=== PATIENT | female | born 1950 | race Caucasian/White ===

== ENCOUNTER 2019-04-21 13:37 | Emergency (ER) | payer MEDICARE, MEDICAID, SELFPAY ==
[2019-04-21] VITALS (15 sets, daily range): BP systolic 112–191; BP diastolic 51–95; PULSE 61–74; RESP 14–20; TEMP 36.3; O2SAT 81–95; BMI 36.6
--- NOTE | 2019-04-21 12:00 | ED_ITS ---
Entered by Karsten Treviño, acting as scribe for Constantino Soares DO HPI - Fall General: Chief Complaint: Fall Stated Complaint: FALL - HIP AND BACK PAIN History of Present Illness: HPI Narrative: 69 yo female presents with fall. Pt states that she fell trying to get out of her van. Pt states that she landed on her right hip. Pt denies neck pain. Pt states that she is on o2 at night. MD complaint: fall Fall from: standing Fall witnessed: yes, by family Place fall occurred: home Loss of consciousness: None Location of injury: other (right hip) Severity: moderate Quality: sharp Associated symptoms-after fall: Reports difficulty walking; Denies abdominal pain, chest pain, hematuria, neck pain or short of breath Review of Systems Const: Denies: fever, chills, body aches, fatigue, malaise or night sweats Eyes: Denies: change in vision or blurry vision ENMT: Denies: throat pain, oral sores/lesions, dental pain, nasal discharge or nasal congestion Card: Denies: chest pain, palpitations, irregular heart rhythm, edema, syncope, shortness of breath on exertion, shortness of breath when lying down or leg pain with exertion Resp: Denies: shortness of breath, productive cough, non-productive cough or wheezing GI: Denies: abdominal pain, nausea, vomiting, vomiting blood, coffee grounds in vomit, difficulty swallowing, heartburn/indigestion, diarrhea, constipation, cramping, blood in stool or black tarry stool : Denies: flank pain, painful urination, urinary frequency, urinary urgency, urinary incontinence or blood in urine Musc: Denies: neck pain Skin/Breast: Denies: rash, itching or redness Neuro: Reports: difficulty walking Endo: Denies: excessive urination, excessive thirst, tired all the time or cold intolerance Jeremiah/Lymph: Denies: easy bruising, easy bleeding, petechiae, enlarged lymph nodes or tender lymph nodes PFSH ED PFSH: Statuses (acute, chronic, etc) shown below reflect problem list status as previously entered and may not be historically accurate Social History Smoking and tobacco status: former smoker Physical Exam Const: COMMON NORMALS: average body habitus, oriented x3 and alert GENERAL APPEARANCE: cooperative, comfortable, well kempt and well developed NUTRITIONAL APPEARANCE: obese ORIENTATION/CONSCIOUSNESS: Yes awake, Yes oriented to person and Yes oriented to place HENMT: COMMON NORMALS: normocephalic, head/scalp atraumatic, EAC's normal, TM's normal bilaterally, external nose normal, moist oral mucous membranes and oropharynx normal HEAD & SCALP: normocephalic and atraumatic NOSE: external nose normal EXTERNAL AUDITORY CANAL: EAC's normal TYMPANIC MEMBRANE: TM's normal bilaterally MOUTH: oral and palatal mucosa normal, lip normal and tongue normal THROAT: posterior oropharynx normal and tonsils normal Eye: COMMON NORMALS: PERRL, EOMs intact bilaterally, conjunctivae normal and no scleral icterus CONJUNCTIVA: Yes conjunctivae normal PUPIL: Yes PERRL Neck/C-Spine: COMMON NORMALS: full ROM, no lymphadenopathy, supple, no meningeal signs and thyroid normal THYROID: thyroid normal and asymmetrical Lymph: LYMPHATIC: no lymphadenopathy noted Resp: COMMON NORMALS: normal respiratory effort, no retractions, no use of accessory muscles and clear to auscultation bilaterally AUSCULTATION: clear to auscultation bilaterally Cardio: COMMON NORMALS: regular rate and regular rhythm RATE: regular rate RHYTHM: regular rhythm HEART SOUNDS: no murmurs GI: COMMON NORMALS: normal to inspection, nondistended, normoactive bowel sounds, soft to palpation and no hepatosplenomegaly PALPATION: Yes soft and Yes no hepatosplenomegaly : COMMON NORMALS: Yes no CVA tenderness BLADDER/KIDNEY EXAM: Yes no CVA tenderness Back/Pelvis: COMMON NORMALS: no CVA tenderness LUMBAR SPINE/LOWER BACK: Yes normal to inspection Extremity: RIGHT LOWER EXTREMITY: Yes hip joint (tenderness with movement) Neuro: COMMON NORMALS: oriented x3 SENSORIUM/ORIENTATION: Yes alert, Yes oriented to person and Yes oriented to place MENINGEAL SIGNS: Yes no meningeal signs Psych: APPEARANCE: Yes well kempt Skin: COMMON NORMALS: no rashes or lesions noted and skin turgor normal GENERAL SKIN EXAM: no rashes or lesions noted and turgor normal Course Vital Signs: Vital signs: Vital Signs Temperature 97.4 F L 04/21/19 12:02 Pulse Rate 66 04/21/19 15:59 Respiratory Rate 17 04/21/19 15:59 Blood Pressure 138/75 04/21/19 16:01 Pulse Oximetry 95 04/21/19 15:59 MDM - Fall Lab Data: Labs: Lab Results 04/21/19 04/21/19 04/21/19 Range/Units 13:25 13:25 14:06 WBC 4.8 (4.0-10.0) 10^3/ uL RBC 5.15 (4.1-5.3) 10^6/u L Hgb 14.6 (11.5-15.3) g/dL Hct 45.5 (37.0-47.0) % MCV 88.3 (81-99) fL MCH 28.3 (28.0-34.0) pg MCHC 32.1 (30.0-36.0) g/dL RDW 12.7 (12.1-15.1) % Plt Count 152 (130-400) 10^3/c mm MPV 9.0 (7.4-10.4) fL Neut % (Auto) 84.3 % Lymph % (Auto) 10.1 % [place] % (Auto) 4.8 % Eos % (Auto) 0.0 % Baso % (Auto) 0.2 % Neut # (Auto) 4.0 (1.8-7.7) 10^3/u L Lymph # (Auto) 0.5 L (0.8-4.8) 10^3/u L [place] # (Auto) 0.2 (0.2-0.9) 10^3/u L Eos # (Auto) 0.0 (0.0-0.8) 10^3/u L Baso # (Auto) 0.0 (0.0-0.1) 10^3/u L Nucleated RBC % (a uto) 0 % Nucleated RBCs # 0.0 /100WBC Sodium 139 (136-145) mmol/L Potassium 4.3 (3.5-5.1) mmol/L Chloride 101 (98-107) mmol/L Carbon Dioxide 26 (22-29) mmol/L Anion Gap 16.3 (5-19) BUN 12 (8-23) mg/dL Creatinine 0.7 (0.5-0.9) mg/dL Glucose 137 H (74-106) mg/dL Calcium 9.6 (8.8-10.2) mg/Dl Total Bilirubin 0.4 (0.15-1.2) mg/dL AST 15 (0-32) U/L ALT 12 (0-33) U/L Alkaline Phosphata se 95 (35-105) IU/L Total Protein 6.8 (6.6-8.7) g/dL Albumin 4.9 (3.5-5.2) g/dL Globulin 1.9 (1.3-4.6) g/dL Urine Color Yellow (Yellow) Urine Appearance Cloudy (CLEAR) Urine pH 5.0 (5-7) Ur Specific Gravit y 1.025 (1.005-1.030) Urine Protein Neg (Negative) Urine Glucose (UA) Norm (Normal) Urine Ketones Negative (Negative) Urine Occult Blood 2+ H (Negative) Urine Nitrate Negative (Negative) Urine Bilirubin 1+ H (NEGATIVE) Urine Urobilinogen 1 H (Negative) mg/dL Ur Leukocyte Inge ase Negative (Negative) Urine RBC None (0-2) /hpf Urine WBC None (0-5) /hpf Ur Squamous Epith Cells 55-80 H (0-5) Urine Bacteria 2+ H (NONE) Urine Mucus 1+ Imaging Data^: Other Imaging: Radiologist's impression: Patient: Brenden Nichole MR#: [id number] : 07/17/1936 Acct:[id number] Age/Sex: 82 / F ADM Date: 04/21/19 Loc: ER Attending Dr: Ordering Physician: Adrianna Tsang DO Date of Service: 04/21/19 Procedure(s): XR acute abdomen series 12474 Accession Number(s): [id number] cc: Adrianna Tsang DO PROCEDURE INFORMATION: Exam: XR Abdomen, 2 Views Exam date and time: 04/21/2019 11:29 AM Age: 82 years old Clinical indication: Bloating and constipation; Prior surgery; Surgery date: 6+ months; Surgery type: Colon, date not given; Patient HX: HX of cervical and colon cancer; Additional info: Bloating/constipation, no bm for 7 days TECHNIQUE: Imaging protocol: XR of the abdomen. Frontal supine and upright views of the abdomen. Views: 2 Views. COMPARISON: CR XR KUB [id number] 02/18/2019 2:45 PM FINDINGS: Lower thorax: Minimal scarring left retrocardiac region. Lungs are otherwise well aerated. Gastrointestinal tract: bowel gas pattern is nonspecific. Air filled large bowel including distal rectal gas. Large amount of stool throughout the large bowel. Intraperitoneal space: See Bones/joints Finding. Bones/joints: Severe degenerative changes right hip. Prior trauma right hemipelvis. XR/XR acute abdomen series [id number] IMPRESSION: 1. Large amount of stool throughout the large bowel. 2. Minimal scarring left retrocardiac region. Lungs are otherwise well aerated. Dictated By: Sami Edmonds MD 04/21/19 1304 Signed By: Sami Edmonds MD 04/21/[address] Abd/Pel: Radiologist's impression: Patient: Brenden Nichole MR#: [id number] : 07/17/1936 Acct:[id number] Age/Sex: 82 / F ADM Date: 04/21/19 Loc: ER Attending Dr: Ordering Physician: Adrianna Tsang DO Date of Service: 04/21/19 Procedure(s): CT abdomen pelvis w con* [id number] Accession Number(s): [id number] Report Number: [id number] WS: [id number] CT scan of the abdomen and pelvis without Oral and with IV contrast. Additional two-dimensional coronal and sagittal reconstruction was performed. 04/21/2019 Clinical Data: Abdominal Pain Comparison: CT abdomen and pelvis, 03/24/2019 DLP: 464.[address] scans at [facility] use at least one of these dose optimization techniques: automated exposure control; mA and/or kV adjustment per patient size (includes targeted exams where dose is matched to clinical indication); or iterative reconstruction. Findings: The lower lungs show no nodules, masses or effusions. There is a right augmentation mammoplasty implant in position. The liver, spleen, adrenal glands and pancreas are normal. The gallbladder is distended and the common bile duct is prominent but no intraductal abnormalities are seen. No gallstones are evident. The kidneys show equal bilateral contrast excretion with with right renal pelvic dilatation. No renal masses or obstructing calculi are seen. The right kidney shows small cortical cysts. There is minimal bilateral hydroureter with no intraureteral calculi. The abdominal aorta is normal in size with calcification in the wall. No abscess, adenopathy, ascites, mass, obstruction or free air is seen.. No appendicitis or diverticulitis is seen. There is a huge amount of fecal material throughout the colon. The uterus is absent. The bladder is unremarkable. No inguinal hernia is seen. The fracture of the right sacrum and fracture of the right ischiopubic ramus again are seen. These probably represent pathologic fractures but they are unchanged. CT/CT abdomen pelvis w con* [id number] Impression: 1. Negative for new intra-abdominal or pelvic abnormalities. 2. Distended gallbladder but no calculi or obstructing common duct stones are seen. 3. Dilatation of the right renal pelvis and both ureters unchanged. 4. Large amount of fecal material throughout the colon. 5. Mixed lytic and blastic changes throughout the sacrum and pelvis with probable pathologic fractures of the right sacrum and the right ischio pubic ramus unchanged. Dictated By: Nikki Henry MD Signed By: Nikki Henry MD Signed Date/Time:04/21/19 1312 DD/ 1300 Xray Ortho: Radiologist's impression: Patient: Kimberly Mosquera MR#: [id number] : 1950 Acct:[id number] Age/Sex: 69 / F ADM Date: Loc: ER Attending Dr: Ordering Physician: Constantino Soares DO Date of Service: 04/21/19 Procedure(s): XR hip RT 2-3V wo/w pel* [id number] Accession Number(s): [id number] Report Number: [id number] WS: [id number] Right hip, AP and frog-leg views, 04/21/2019 Clinical Data: fall, pain Comparison: Right hip x-ray, 08/07/2018. Findings: No fractures or dislocations are seen. The hip joint is intact. The soft tissues are not remarkable. The adjacent pelvis is normal. There is an incidental soft tissue calcification lateral to the proximal right femur seen on the frog-leg view. XR/XR hip RT 2-3V wo/w pel* 09016 Impression: Negative right hip. Dictated By: Nikki Henry MD Signed By: Nikki Henry MD Signed Date/Time:04/21/19 1313 XR cervical: Radiologist's impression: Patient: Kimberly Mosquera MR#: [id number] : 1950 Acct:[id number] Age/Sex: 69 / F ADM Date: Loc: ER Attending Dr: Ordering Physician: Constantino Soares DO Date of Service: 04/21/19 Procedure(s): XR cervical spine 2V* 46485 Accession Number(s): [id number] Report Number: [id number] WS: [id number] Cervical spine, 3 views, 04/21/2019 Clinical Data: fall Comparison: Lateral cervical spine, 10/14/2007. Findings: No compression fractures are seen. Minimal osteoarthritic change at C4. Anterior cervical disc fusion at C5-C7 is intact. The disc fusion at C5-C6 and C6-7 remains the same.. There is no prevertebral soft tissue swelling. The odontoid is unremarkable. The soft tissues of the neck and the lung apices are normal. XR/XR cervical spine 2V* 96086 Impression: 1. Intact and unchanged anterior cervical disc fusion from C5 through C7. 2. Minimal osteoarthritic change at C4. Dictated By: Nikki Henry MD Signed By: Nikki Henry MD Signed Date/Time:04/21/191315 DD/ 1314 CT Head: Radiologist's impression: Patient: Kimberly Mosquera MR#: [id number] : 1950 Acct:[id number] Age/Sex: 69 / F ADM Date: Loc: ER Attending Dr: Ordering Physician: Constantino Soares DO Date of Service: 04/21/19 Procedure(s): CT head wo con* [id number] Accession Number(s): [id number] Report Number: [id number] WS: [id number] CT scan of the head, Clinical Data: fall Comparison: None. DLP: 782.[address] scans at [facility] use at least one of these dose optimization techniques: automated exposure control; mA and/or kV adjustment per patient size (includes targeted exams where dose is matched to clinical indication); or iterative reconstruction. Findings: The ventricular system is normal without shift. No recent infarct or hemorrhage is seen. There are no abnormal intracerebral masses. The cerebellum and brainstem are not remarkable. Bony windows of the skull and skull base show no fractures or erosions. The mastoid air cells, internal auditory canals, sella turcica, intraorbital contents, and paranasal sinuses show only minimal mucosal periosteal thickening of the ethmoid and sphenoid sinuses.. CT/CT head wo con* 06079 Impression: Negative CT scan of the head Dictated By: Nikki Henry MD Signed By: Nikki Henry MD Signed Date/Time:04/21/19 1322 Discharge Plan Discharge Patient Disposition: Home, Self-Care Clinical Impression: Fall Qualifiers: Encounter type: initial encounter Qualified Code(s): W19.XXXA - Unspecified fall, initial encounter Condition: Stable Prescriptions: New tramadol 50 mg tablet 50 mg PO Q6H PRN (Reason: pain) Qty: 10 RF: 0 No Action Celexa 10 mg Tablet 10 mg PO DAILY RF: 0 alendronate 70 mg Tablet 70 mg PO Q7D RF: 0 Abilify 5 mg Tablet 5 mg PO BEDTIME RF: 0 Trelegy Ellipta 100-62.5-25 mcg Blister With Device 1 inh INHALATION DAILY RF: 0 Discharge Orders: Discharge Order (Routine); Ordered 04/21/19 Ordered By: Constantino Soares Referrals: Nakita Rob MD [Family Provider] - Discharge Diet: Usual diet Discharge Activity: Increase activity as tolerated Discharge Date/Time: 04/21/19 16:08 Coding Level of Care Code ED Public Health Director for Chg Fwd Exam Problem Focused The documentation recorded by the [place] bautista Kialy, accurately reflects the service I personally performed and the decisions made by Fany mathis Curtis L, DO Apr 21, 2019 13:37
--- NOTE | 2019-04-21 12:36 | XR_ITS ---
WS: [id number] Cervical spine, 3 views, 04/21/2019 Clinical Data: fall Comparison: Lateral cervical spine, 10/14/2007. Findings: No compression fractures are seen. Minimal osteoarthritic change at C4. Anterior cervical d isc fusion at C5-C7 is intact. The disc fusion at C5-C6 and C6-7 remains the same.. There is no preve rtebral soft tissue swelling. The odontoid is unremarkable. The soft tissues of the neck and the lung apices are normal. XR/XR cervical spine 2V* [id number] Impression: 1. Intact and unchanged anterior cervical disc fusion from C5 through C7. 2. Minimal osteoarthritic change at C4.
--- NOTE | 2019-04-21 12:36 | ECG_ITS ---
Measurements Intervals [place]na Rate: 64 P: 73 MA: 157 QRS: 41 QRSD: 98 T: 40 QT: 393 QTc: 406 SINUS RHYTHM No previous ECG available for comparison Electronically Signed On 04-21-2019 17:50:08 BROADCAST MAINTENANCE TECHNICIAN by Carmel Corrigan M.D. [email or web address]
--- NOTE | 2019-04-21 12:36 | CT_ITS ---
WS: [id number] CT scan of the head, Clinical Data: fall Comparison: None. DLP: 782.[address] scans at [facility] use at least one of these dose optimization techniques: automat ed exposure control; mA and/or kV adjustment per patient size (includes targeted exams where dose is matched to clinical indication); or iterative reconstruction. Findings: The ventricular system is normal without shift. No recent infarct or hemorrhage is seen. There are no abnormal intracerebral masses. The cerebellum and brainstem are not remarkable. Bony windows of the skull and skull base show no fractures or erosions. The mastoid air cells, risk management intern al auditory canals, sella turcica, intraorbital contents, and paranasal sinuses show only minimal muc osal periosteal thickening of the ethmoid and sphenoid sinuses.. CT/CT head wo con* [id number] Impression: Negative CT scan of the head
--- NOTE | 2019-04-21 12:36 | XR_ITS ---
WS: [id number] Right hip, AP and frog-leg views, 04/21/2019 Clinical Data: fall, pain Comparison: Right hip x-ray, 08/07/2018. Findings: No fractures or dislocations are seen. The hip joint is intact. The soft tissues are not remarkable. The adjacent pelvis is normal. There is an incidental soft tissue calcification lateral to the proximal right femur seen on the frog -leg view. XR/XR hip RT 2-3V wo/w pel* [id number] Impression: Negative right hip.
[2019-04-21] MEDS: ondansetron 2 mg/ML SDV 2 mL 4 MG IVP (13:22)
[2019-04-21] MEDS: morphine 4 mg/mL SDV 1 mL IV (13:25)
[2019-04-21 13:33] LABS: Basophils % 0.2 %; Hematocrit 45.5 % (37.0-47.0); Hemoglobin 14.6 g/dL (11.5-15.3); Lymphocytes # 0.5 10^3/uL (0.8-4.8); Lymphocytes % 10.1 %; Mean Corpuscular HGB Conc 32.1 g/dL (30.0-36.0); Mean Corpuscular Hemoglobin 28.3 pg (28.0-34.0); Mean Corpuscular Volume 88.3 fL (81-99); Monocytes # 0.2 10^3/uL (0.2-0.9); Monocytes % 4.8 %; Neutrophils % 84.3 %; Nucleated Red Blood Cells % 0 %; Platelet Count 152 10^3/cmm (130-400); Red Blood Count 5.15 10^6/uL (4.1-5.3); Red Cell Distribution Width 12.7 % (12.1-15.1); White Blood Count 4.8 10^3/uL (4.0-10.0)
[2019-04-21 14:20] LABS: Alanine Aminotransferase 12 U/L (0-33); Albumin Level 4.9 g/dL (3.5-5.2); Alkaline Phosphatase 95 IU/L (35-105); Anion Gap 16.3 (5-19); Aspartate Amino Transferase 15 U/L (0-32); Blood Urea Nitrogen 12 mg/dL (8-23); Calcium 9.6 mg/Dl (8.8-10.2); Carbon Dioxide 26 mmol/L (22-29); Chloride 101 mmol/L (98-107); Globulin 1.9 g/dL (1.3-4.6); Glucose 137 mg/dL (74-106); Potassium 4.3 mmol/L (3.5-5.1); Sodium 139 mmol/L (136-145); Total Bilirubin 0.4 mg/dL (0.15-1.2); Total Protein 6.8 g/dL (6.6-8.7)
[2019-04-21 14:40] LABS: Add Urine Microscopic? YES; Bilirubin Urine 1+ (NEGATIVE); Blood Urine 2+ (Negative); Glucose Urine UA Norm (Normal); Ketones Urine Negative (Negative); Leukocyte Esterase Urine Negative (Negative); Nitrate Urine Negative (Negative); Protein Urine Neg (Negative); Specific Gravity, Urine 1.025 (1.005-1.030); Urine Appearance Cloudy (CLEAR); Urine Color Yellow (Yellow); Urobilinogen Urine 1 mg/dL (Negative)
[2019-04-21 14:41] LABS: Add Urine Culture? No; Bacteria Urine 2+; Mucus Urine 1+; Squamous Epithelial Cell Urine 55-80 (0-5)
--- NOTE | 2019-04-21 15:02 | XR_ITS ---
WS: [id number] Portable AP upright chest, 04/21/2019 Clinical Data: decrease O2 sat Comparison: PA and lateral chest, 11/11/2015. Findings: No nodules, masses or effusions are seen. The heart is normal. The pulmonary vascularity is not increased. No pneumonia or pneumothorax is seen. The aortic arch and descending aorta show mild tortuosity. The patient has had an anterior cervical disc fusion. XR/XR chest 2V insp/exp 89301 Impression: Atherosclerosis.
[2019-04-21] MEDS: ipratropium-albuterol 3 mL Neb INHALATION ×2 (15:46→15:55)
== END 2019-04-21 16:08 | disposition home or self-care (01) ==
PROVIDERS: Emergency Provider Family Medicine; Family Provider Family Medicine
DX: M54.9 Dorsalgia, unspecified (principal); M25.551 Pain in right hip; Z87.891 Personal history of nicotine dependence
CPT/HCPCS: 36415; 70450; 71046; 72040; 73502; 80053; 81003; 85025; 93005; 96374; 96375; 99283; 99284; J2270; J2405

== ENCOUNTER 2019-04-27 10:03 | Inpatient (IN) | payer MEDICARE, MEDICAID, SELFPAY ==
[2019-04-27] VITALS (12 sets, daily range): BP systolic 126–158; BP diastolic 60–71; PULSE 72–94; RESP 16–22; TEMP 36.7–36.9; O2SAT 90–94; BMI 38.4
--- NOTE | 2019-04-27 10:16 | ED_ITS ---
HPI - Extremity Injury (Lower) General: Chief Complaint: Fall Stated Complaint: RIGHT HIP PAIN S/P FALL X1 WEEK Time Seen by Provider: 04/27/19 10:16 Source: patient and family Mode of arrival: ambulatory Limitations: no limitations History of Present Illness: HPI Narrative: tripped and fell one week ago; seen here and had negative hip XRs performed but pt still complains of pain; states she has not been able to walk since the event complaint: hip injury Onset (ago): day(s) Injury: Right: hip Type of Injury: blunt Place: home Severity: severe Exacerbating factors: weight bearing, movement and palpation Context: fall Associated symptoms: Reports inability to bear weight Other symptoms: none Review of Systems Const: Denies: fever or chills Eyes: Denies: change in vision or blurry vision Card: Denies: chest pain, palpitations, irregular heart rhythm, lightheadedness, syncope or shortness of breath on exertion Resp: Denies: shortness of breath, productive cough or pain on inspiration GI: Denies: abdominal pain, nausea, vomiting, heartburn/indigestion or diarrhea : Denies: painful urination Musc: Reports: joint pain and limited range of motion; Denies: neck pain, back pain, extremity swelling, redness or joint warmth Skin/Breast: Denies: rash Neuro: Denies: headache, numbness in extremities, weakness in extremities, changes in sensation, lack of coordination, frequent falls or dizziness PFSH ED PFSH: Statuses (acute, chronic, etc) shown below reflect problem list status as previously entered and may not be historically accurate Social History Smoking and tobacco status: former smoker Physical Exam Const: COMMON NORMALS: no apparent distress, oriented x3, alert and well nourished NUTRITIONAL APPEARANCE: obese HENMT: COMMON NORMALS: normocephalic and head/scalp atraumatic HEAD & SCALP: normocephalic and atraumatic Neck/C-Spine: COMMON NORMALS: full ROM, no lymphadenopathy, supple and no meningeal signs Chest: COMMONS NORMALS: inspection of chest normal Resp: COMMON NORMALS: normal respiratory effort and clear to auscultation bilaterally AUSCULTATION: clear to auscultation bilaterally Cardio: COMMON NORMALS: regular rate and regular rhythm RATE: regular rate RHYTHM: regular rhythm GI: COMMON NORMALS: normal to inspection, nondistended, normoactive bowel sounds, soft to palpation, non-tender, no hepatosplenomegaly and no masses PALPATION: Yes soft and Yes no hepatosplenomegaly : COMMON NORMALS: Yes no CVA tenderness BLADDER/KIDNEY EXAM: Yes no CVA tenderness Back/Pelvis: COMMON NORMALS: no CVA tenderness and thoracic and lumbar spine normal to inspection Extremity: RIGHT LOWER EXTREMITY: Yes hip joint Right hip: Yes palpation (TTP lateral hip/pelvis), Yes ROM and Yes neurovascular exam (NV intact) and Yes knee joint (TTP; no swelling; limited ROM) OTHER: R LE rotated Neuro: COMMON NORMALS: oriented x3 SENSORIUM/ORIENTATION: Yes alert MENINGEAL SIGNS: Yes no meningeal signs Skin: COMMON NORMALS: no rashes or lesions noted GENERAL SKIN EXAM: no rashes or lesions noted Course Consultations: Consultation #1: Dr. Spaulding-recommends admit to hospitalist for surgical clearance Vital Signs: Vital signs: Vital Signs Temperature 98.1 F 04/27/19 10:05 Pulse Rate 77 04/27/19 10:05 Respiratory Rate 16 04/27/19 11:57 Blood Pressure 155/61 04/27/19 10:05 Pulse Oximetry 92 04/27/19 10:05 MDM - Extremity Injury (Lower) MDM Narrative: Medical decision making narrative: Dr. Tate spoke to hospitalist Dr. Nguyen who will admit patient Lab Data: Labs: Lab Results 04/27/19 04/27/19 04/27/19 Range/Units 11:53 11:53 12:05 WBC 5.6 (4.0-10.0) 10^3/ uL RBC 5.09 (4.1-5.3) 10^6/u L Hgb 14.2 (11.5-15.3) g/dL Hct 44.7 (37.0-47.0) % MCV 87.8 (81-99) fL MCH 27.9 L (28.0-34.0) pg MCHC 31.8 (30.0-36.0) g/dL RDW 12.7 (12.1-15.1) % Plt Count 166 (130-400) 10^3/c mm MPV 10.3 (7.4-10.4) fL Neut % (Auto) 84.6 % Lymph % (Auto) 7.2 % [place] % (Auto) 7.2 % Eos % (Auto) 0.0 % Baso % (Auto) 0.5 % Neut # (Auto) 4.7 (1.8-7.7) 10^3/u L Lymph # (Auto) 0.4 L (0.8-4.8) 10^3/u L [place] # (Auto) 0.4 (0.2-0.9) 10^3/u L Eos # (Auto) 0.0 (0.0-0.8) 10^3/u L Baso # (Auto) 0.0 (0.0-0.1) 10^3/u L Nucleated RBC % (a uto) 0 % Nucleated RBCs # 0.0 /100WBC Sodium 148 H (136-145) mmol/L Potassium 4.0 (3.5-5.1) mmol/L Chloride 103 (98-107) mmol/L Carbon Dioxide 29 (22-29) mmol/L Anion Gap 20.0 H (5-19) BUN 15 (8-23) mg/dL Creatinine 0.7 (0.5-0.9) mg/dL Glucose 101 (74-106) mg/dL Calcium 9.8 (8.8-10.2) mg/Dl Total Bilirubin 1.0 (0.15-1.2) mg/dL AST 11 (0-32) U/L ALT 8 (0-33) U/L Alkaline Phosphata se 84 (35-105) IU/L Total Protein 7.1 (6.6-8.7) g/dL Albumin 3.7 (3.5-5.2) g/dL Globulin 3.4 (1.3-4.6) g/dL Urine Color Straw (Yellow) Urine Appearance Sl hazy (CLEAR) Urine pH 5 (5-7) Ur Specific Gravit y 1.020 (1.005-1.030) Urine Protein Neg (Negative) Urine Glucose (UA) Norm (Normal) Urine Ketones 1+ H (Negative) Urine Occult Blood 2+ H (Negative) Urine Nitrate Negative (Negative) Urine Bilirubin 1+ H (NEGATIVE) Urine Urobilinogen 8 H (Negative) mg/dL Ur Leukocyte Inge ase Negative (Negative) Urine RBC 5-10 H (0-2) /hpf Urine WBC None (0-5) /hpf Ur Squamous Epith Cells 5-10 H (0-5) Urine Bacteria Trace (NONE) Urine Mucus 1+ Imaging Data^: R hip: Radiologist's impression: [address] [address] XRay Report Signed Patient: Kimberly Mosquera Unit #: [id number] : 1950 Age/Sex: 69 / F ADM Date: 04/27/19 Loc: ER Room/Bed: Attending Dr: Ordering Provider/Ordering MD: Debi Arnold Date of Service: 04/27/19 Procedure(s): XR femur RT min 2V* [id number] Accession Number(s): [id number] Report Number: [id number] PROCEDURE INFORMATION: Exam: XR Right Femur Exam date and time: 04/27/2019 11:16 AM Age: 69 years old Clinical indication: Injury or trauma; Fall; Initial encounter; Blunt trauma; Hip; Right TECHNIQUE: Imaging protocol: XR Right femur. Views: Frontal and lateral views. COMPARISON: CR XR knee RT 1-2V [id number] 04/27/2019 10:57 AM CR - XR hip RT 2-3V wo/w pel* [id number] 04/21/2019 12:50:42 PM FINDINGS: Bones/joints: Subcapital (superior/lateral)/transcervical (inferior/medial) impacted RIGHT proximal femoral fracture in varus alignment (previously in valgus alignment). Soft tissues: Unremarkable. XR/XR femur RT min 2V* [id number] IMPRESSION: Subcapital/transcervical RIGHT proximal femoral fracture. Dictated By: Hans Galvin MD Signed By: Hans Galvin MD Signed Date/Time: 04/27/19 1135 DD/ 1134 R knee: Radiologist's impression: [address] [address] XRay Report Signed Patient: Kimberly Mosquera Unit #: [id number] : 1950 Age/Sex: 69 / F ADM Date: 04/27/19 Loc: ER Room/Bed: Attending Dr: Ordering Provider/Ordering MD: Debi Arnold Date of Service: 04/27/19 Procedure(s): XR knee RT 1-2V 48970 Accession Number(s): [id number] Report Number: [id number] PROCEDURE INFORMATION: Exam: XR Right Knee Exam date and time: 04/27/2019 11:17 AM Age: 69 years old Clinical indication: Injury or trauma; Fall; Initial encounter; Blunt trauma; Hip; Right TECHNIQUE: Imaging protocol: XR Right knee. Views: Oblique and crosstable lateral views. COMPARISON: No relevant prior studies available. FINDINGS: Bones/joints: Mild medial compartment predominate narrowing. No acute bony abnormality identified. Small superior and inferior patellar articular marginal osteophytes are present. Soft tissues: Normal. XR/XR knee RT 04-17V [id number] IMPRESSION: 1. Medial compartment chondromalacia or meniscal degeneration. 2. Mild patellofemoral primary osteoarthritis. 3. No acute bony injury identified. Dictated By: Hans Galvin MD Signed By: Hans Galvin MD Signed Date/Time: 04/27/19 1136 DD/ 113 CT bony pelvis: Radiologist's impression: [address] [address] [address] Scan Report Signed Patient: Kimberly Mosquera Unit #: [id number] : 1950 Acct#:[id number] Age/Sex: 69 / F ADM Date: 04/27/19 Loc: ER Room/Bed: Attending Dr: Ordering Provider/Ordering MD: Debi Arnold Date of Service: 04/27/19 Procedure(s): CT bony pelvis 36721 Accession Number(s): [id number] Report Number: [id number] PROCEDURE INFORMATION: Exam: CT Pelvis Without Contrast; Skeletal Exam date and time: 04/27/2019 10:38 AM Age: 69 years old Clinical indication: Injury or trauma; Fall; Initial encounter; Injury date: RT hip pain; Additional info: Fall 1 wk ago; Continues to be non-ambulatory; R hip/pelvis TECHNIQUE: Imaging protocol: Computed tomography images of the pelvis without contrast. Exam focused on the skeletal structures. Total DLP: 1220.11 mGy-cm Radiation optimization: All CT scans at this facility use at least one of these dose optimization techniques: automated exposure control; mA and/or kV adjustment per patient size (includes targeted exams where dose is matched to clinical indication); or iterative reconstruction. COMPARISON: CR XR hip RT 2-3V wo/w pel* [id number] 04/21/2019 12:50 PM FINDINGS: Appendix: The vermiform appendix is normal. Bladder: The urinary bladder is decompressed and difficult to assess. Reproductive: Bilobed thin-walled LEFT ovarian fluid attenuation mass measuring 12.4 x 10.5 x 9.1 cm. Vasculature: LEFT pelvic phleboliths. Moderate aortic and bilateral iliac artery atherosclerotic calcifications without evidence of aneurysm. Bones/joints: Impacted RIGHT subcapital (superior/lateral)/transcervical (anterior/medial) fracture in varus alignment. Small RIGHT hip joint effusion. Bilateral mild lower lumbar facet primary osteoarthritis. Soft tissues: Bilateral gluteus medius insertional chronic calcific tendinopathy/enthesopathy. Mild RIGHT para-articular soft tissue edema. CT/CT bony pelvis [id number] IMPRESSION: 1. Impacted RIGHT subcapital/transcervical fracture. 2. Bilateral gluteus medius insertional chronic calcific tendinopathy/enthesopathy. 3. LEFT ovarian cystic mass, ovarian neoplasia not excluded. Radiation Dose CTDIVOL = (mGy): DLP = 1220.11 (mGy-cm) Dictated By: Hans Galvin MD Signed By: Hans Galvin MD Signed Date/Time: 04/27/19 1133 DD/ 1131 CXR: My impression: chronic COPD; no changes from previous study Discharge Plan Discharge Patient Disposition: Admitted As Inpatient Clinical Impression: Fall Qualifiers: Encounter type: initial encounter Qualified Code(s): W19.XXXA - Unspecified fall, initial encounter Closed hip fracture requiring operative repair Qualifiers: Encounter type: initial encounter Laterality: right Qualified Code(s): S72.001A - Fracture of unspecified part of neck of right femur, initial encounter for closed fracture Condition: Stable Referrals: Nakita Rob MD [Family Provider] - Coding Level of Care Code ED Constitutional Law Professor for Chg Fwd Exam Problem Focused
--- NOTE | 2019-04-27 10:32 | XRR_ITS ---
PROCEDURE INFORMATION: Exam: XR Right Knee Exam date and time: 04/27/2019 11:17 AM Age: 69 years old Clinical indication: Injury or trauma; Fall; Initial encounter; Blunt trauma; Hip; Right TECHNIQUE: Imaging protocol: XR Right knee. Views: Oblique and crosstable lateral views. COMPARISON: No relevant prior studies available. FINDINGS: Bones/joints: Mild medial compartment predominate narrowing. No acute bony abnormality identified. Small superior and inferior patellar articular marginal osteophytes are present. Soft tissues: Normal. XR/XR knee RT 1-2V 90471 IMPRESSION: 1. Medial compartment chondromalacia or meniscal degeneration. 2. Mild patellofemoral primary osteoarthritis. 3. No acute bony injury identified.
--- NOTE | 2019-04-27 10:32 | CTR_ITS ---
PROCEDURE INFORMATION: Exam: CT Pelvis Without Contrast; Skeletal Exam date and time: 04/27/2019 10:38 AM Age: 69 years old Clinical indication: Injury or trauma; Fall; Initial encounter; Injury date: RT hip pain; Additional info: Fall 1 wk ago; Continues to be non-ambulatory; R hip/pelvis TECHNIQUE: Imaging protocol: Computed tomography images of the pelvis without contrast. Exam focused on the skeletal structures. Total DLP: 1220.11 mGy-cm Radiation optimization: All CT scans at this facility use at least one of these dose optimization techniques: automated exposure control; mA and/or kV adjustment per patient size (includes targeted exams where dose is matched to clinical indication); or iterative reconstruction. COMPARISON: CR XR hip RT 2-3V wo/w pel* [id number] 04/21/2019 12:50 PM FINDINGS: Appendix: The vermiform appendix is normal. Bladder: The urinary bladder is decompressed and difficult to assess. Reproductive: Bilobed thin-walled LEFT ovarian fluid attenuation mass measuring 12.4 x 10.5 x 9.1 cm. Vasculature: LEFT pelvic phleboliths. Moderate aortic and bilateral iliac artery atherosclerotic calcifications without evidence of aneurysm. Bones/joints: Impacted RIGHT subcapital (superior/lateral)/transcervical (anterior/medial) fracture in varus alignment. Small RIGHT hip joint effusion. Bilateral mild lower lumbar facet primary osteoarthritis. Soft tissues: Bilateral gluteus medius insertional chronic calcific tendinopathy/enthesopathy. Mild RIGHT para-articular soft tissue edema. CT/CT bony pelvis [id number] IMPRESSION: 1. Impacted RIGHT subcapital/transcervical fracture. 2. Bilateral gluteus medius insertional chronic calcific tendinopathy/enthesopathy. 3. LEFT ovarian cystic mass, ovarian neoplasia not excluded. Radiation Dose CTDIVOL = (mGy): DLP = 1220.11 (mGy-cm)
--- NOTE | 2019-04-27 10:32 | XRR_ITS ---
PROCEDURE INFORMATION: Exam: XR Right Femur Exam date and time: 04/27/2019 11:16 AM Age: 69 years old Clinical indication: Injury or trauma; Fall; Initial encounter; Blunt trauma; Hip; Right TECHNIQUE: Imaging protocol: XR Right femur. Views: Frontal and lateral views. COMPARISON: CR XR knee RT 1-2V [id number] 04/27/2019 10:57 AM CR - XR hip RT 2-3V wo/w pel* [id number] 04/21/2019 12:50:42 PM FINDINGS: Bones/joints: Subcapital (superior/lateral)/transcervical (inferior/medial) impacted RIGHT proximal femoral fracture in varus alignment (previously in valgus alignment). Soft tissues: Unremarkable. XR/XR femur RT min 2V* [id number] IMPRESSION: Subcapital/transcervical RIGHT proximal femoral fracture.
--- NOTE | 2019-04-27 11:37 | ECG_ITS ---
Measurements Intervals [place] Rate: 78 P: 78 ND: 151 QRS: 66 QRSD: 106 T: 65 QT: 373 QTc: 426 SINUS RHYTHM INTERPRETATION BASED ON A DEFAULT AGE OF 40 YEARS Compared to ECG 04/21/2019 13:39:47 No significant changes Electronically Signed On 04-27-2019 19:23:08 BODY RECALL INSTRUCTOR by Homero Marshall M.D. [email or web address]
--- NOTE | 2019-04-27 11:38 | XRR_ITS ---
PROCEDURE INFORMATION: Exam: XR Chest, 1 View Exam date and time: 04/27/2019 12:02 PM Age: 69 years old Clinical indication: Injury or trauma; Fall; Initial encounter; Blunt trauma (contusions or hematomas); Additional info: Cough/congestion TECHNIQUE: Imaging protocol: XR of the chest Views: Frontal supine view of the chest. COMPARISON: CR XR chest 2V insp/exp [id number] 04/21/2019 3:13 PM FINDINGS: Lungs: The pulmonary vasculature remains congested, exaggerated by supine positioning. Patchy mixed interstitial and air space opacity in the RIGHT apex. The lungs are otherwise clear bilaterally. Pleural space: No pleural effusion. No pneumothorax. Heart/Mediastinum: The heart is normal in size and contour. Mediastinum: Stable. Bones/joints: Stable. Lower cervical spinal anterior fixation hardware. XR/XR chest 1V portable [id number] IMPRESSION: 1. Persistent pulmonary vascular congestion. 2. Patchy mixed interstitial and air space opacity in the RIGHT apex. Pneumonitis is difficult to exclude. Clinical correlation is recommended.
[2019-04-27] MEDS: morphine 4 mg/mL SDV 1 mL IVP ×2 (11:57→17:57)
[2019-04-27] MEDS: ondansetron 2 mg/ML SDV 2 mL 4 MG IVP (11:58)
[2019-04-27 12:02] LABS: Basophils % 0.5 %; Hematocrit 44.7 % (37.0-47.0); Hemoglobin 14.2 g/dL (11.5-15.3); Lymphocytes # 0.4 10^3/uL (0.8-4.8); Lymphocytes % 7.2 %; Mean Corpuscular HGB Conc 31.8 g/dL (30.0-36.0); Mean Corpuscular Hemoglobin 27.9 pg (28.0-34.0); Mean Corpuscular Volume 87.8 fL (81-99); Mean Platelet Volume 10.3 fL (7.4-10.4); Monocytes # 0.4 10^3/uL (0.2-0.9); Monocytes % 7.2 %; Neutrophils # 4.7 10^3/uL (1.8-7.7); Neutrophils % 84.6 %; Nucleated Red Blood Cells % 0 %; Platelet Count 166 10^3/cmm (130-400); Red Blood Count 5.09 10^6/uL (4.1-5.3); Red Cell Distribution Width 12.7 % (12.1-15.1); White Blood Count 5.6 10^3/uL (4.0-10.0)
[2019-04-27 12:22] LABS: Alanine Aminotransferase 8 U/L (0-33); Albumin Level 3.7 g/dL (3.5-5.2); Alkaline Phosphatase 84 IU/L (35-105); Aspartate Amino Transferase 11 U/L (0-32); Blood Urea Nitrogen 15 mg/dL (8-23); Calcium 9.8 mg/Dl (8.8-10.2); Carbon Dioxide 29 mmol/L (22-29); Chloride 103 mmol/L (98-107); Globulin 3.4 g/dL (1.3-4.6); Glucose 101 mg/dL (74-106); Sodium 148 mmol/L (136-145); Total Protein 7.1 g/dL (6.6-8.7)
[2019-04-27 12:30] LABS: Glucose Urine UA Norm (Normal); Protein Urine Neg (Negative); Urine Appearance SL Hazy (CLEAR); Urine Color Straw (Yellow); pH Urine 5 (5-7)
[2019-04-27 12:31] LABS: Add Urine Microscopic? YES; Bilirubin Urine 1+ (NEGATIVE); Blood Urine 2+ (Negative); Ketones Urine 1+ (Negative); Leukocyte Esterase Urine Negative (Negative); Nitrate Urine Negative (Negative); Urobilinogen Urine 8 mg/dL (Negative)
[2019-04-27 12:33] LABS: Add Urine Culture? No; Bacteria Urine TRACE; Mucus Urine 1+
--- NOTE | 2019-04-27 12:54 | PC.NURSE ---
Right foot is going numb.
--- NOTE | 2019-04-27 14:45 | P.HP_ITS ---
Providers/Chief Complaint Admitting Physician: Ketty Nguyen MD Chief Complaint: R hip fracture History of Present Illness Kimberly Mosquera is a 69 year old female with PMHx of COPD (1-2 L NC qhs), Depression/anxiety, Morbid obesity, Former smoker, presents to the ED today with complaints of a worsening right hip pain and inability to weight-bear for approximately 1 week following a fall while she was trying to get out of the car on her way into [facility]. Her purse strings got tangled under her feet and she tripped and fell landing on her right hip. She was unable to get up and EMS was called bringing her to the hospital for evaluation. At that time she had x-rays which were negative for any fractures. She states that on her return home she had increasing pain, and has been unable to put any weight on her right hip significantly and has ability to get around at home. She has been taking tramadol 50 mg 3 times a day as needed for pain control with minimal relief. Her appetite has been very poor and her oral intake has been diminished. She has noticed that her urination has been decreased and her urine has been quite concentrated. She has not had a bowel movement in approximately 7 days. Prior to this fall approximately a week ago she was ambulating independently. On evaluation in the ER today she was found to have an impacted right subcapital hip fracture. Labs are unremarkable, EKG shows sinus rhythm, urinalysis is negative for infection, chest x-ray is reported as persistent vascular congestion with possible pneumonitis. Vital signs are stable. During my assessment of the patient on her arrival to the floor she is shifting continuously in the bed trying to find a comfortable position due to continued pain in her hip. She received a 4 mg dose of morphine in the ER as well as some Zofran. She is slightly hypoxic on room air so we have placed her on 2 L nasal cannula with appropriate saturation. ER physician spoke with Dr. Spaulding who is the orthopedic surgeon coagulation operator and plan is for surgery tomorrow. We will keep the patient n.p.o. after midnight. Discussed this with the patient and her family at bedside and they are agreeable to this. Review of Systems Const: Reports: change in appetite (decreased appetite); Denies: fever, chills or fatigue Eyes: Denies: change in vision ENMT: Denies: dry mouth Card: Denies: chest pain, edema, swelling of feet/ankles or lightheadedness Resp: Denies: shortness of breath, productive cough or wheezing GI: Denies: abdominal pain, nausea, vomiting, vomiting blood or blood in stool : Reports: other (more concentrated urine); Denies: difficulty urinating, painful urination, urinary frequency or blood in urine Musc: Reports: extremity pain (R hip pain, inability to weight bear); Denies: back pain Skin/Breast: Denies: rash Neuro: Reports: difficulty walking (inability to weight bear on R); Denies: numbness in extremities or weakness in extremities Psych: Denies: anxiety Jeremiah/Lymph: Reports: easy bruising (chronic) Medications/Allergies Home Medications Medication Instructions Recorded Confirmed Last Taken Type albuterol sulfate See Rx Instructions .ROUTE .COMPLEX 04/27/19 04/27/19 Unknown History albuterol sulfate [Ventolin HFA] 2 puff INHALATION QID PRN 04/27/19 04/27/19 Unknown History chlorpheniramine maleate 4 mg PO DAILY PRN 04/27/19 04/27/19 Unknown History [ChlorTabs] tramadol See Rx Instructions .ROUTE 04/27/19 04/27/19 04/26/19 History .COMPLEX PRN Allergies Allergy/AdvReac Type Severity Reaction Status Date / Time Penicillins Allergy ALGY-Anaphy Verified 04/21/19 12:11 laxis PFSH Acute PFSH: Statuses (acute, chronic, etc) shown below reflect problem list status as previously entered and may not be historically accurate Medical History Cervical vertebral fusion (Acute) Condyloma acuminata (Acute) s/p excision in 11/2017 COPD (chronic obstructive pulmonary disease) (Acute) Depression (Acute) Osteoporosis (Acute) takes Aledronate 70 mg once weekly Surgical History H/O shoulder surgery (Acute) left shoulder surgery Family History (Updated 04/27/19 @ 15:04 by Ketty Nguyen MD) Other Alcoholic cirrhosis of liver CAD (coronary artery disease) Social History (Updated 04/27/19 @ 15:04 by Ketty Nguyen MD) Smoking and tobacco status: former smoker Quit status (tobacco): has quit using tobacco Year quit tobacco: quit 2-3 yrs ago Alcohol intake: never Substance/Drug Use: never Household members: spouse Housing: House Vitals/I&O/Wt Last Vital Signs Temp 98.5 F 04/27/19 14:27 Pulse 76 04/27/19 14:27 Resp 18 04/27/19 14:27 BP 158/71 04/27/19 14:27 Pulse Ox 92 04/27/19 14:27 Weight last 48 hrs Weight 95.254 kg Physical Exam Const: COMMON NORMALS: no apparent distress and oriented x3 GENERAL APPEARANCE: cooperative; not comfortable (Appears somewhat uncomfortable) ORIENTATION/CONSCIOUSNESS: Yes awake HENMT: COMMON NORMALS: normocephalic, head/scalp atraumatic, hearing grossly normal bilaterally and moist oral mucous membranes HEAD & SCALP: normocephalic and atraumatic Eye: COMMON NORMALS: PERRL, EOMs intact bilaterally and conjunctivae normal CONJUNCTIVA: Yes conjunctivae normal PUPIL: Yes PERRL Neck/C-Spine: COMMON NORMALS: full ROM GENERAL: Yes normal visual inspection and Yes trachea midline Resp: COMMON NORMALS: normal respiratory effort, no retractions and no use of accessory muscles EFFORT & INSPECTION: Yes able to speak in complete sentences, Yes symmetric chest movement and No tachypneic AUSCULTATION: diminished lung sounds bilateral throughout Cardio: COMMON NORMALS: regular rate, regular rhythm, S1 normal heart sound, S2 normal heart sound and no murmurs RATE: regular rate RHYTHM: regular rhythm HEART SOUNDS: S1 normal and S2 normal GI: COMMON NORMALS: normal to inspection, nondistended, normoactive bowel sounds, soft to palpation and non-tender PALPATION: Yes soft : BLADDER/KIDNEY EXAM: Yes catheter in place Catheter type (Female): urethral Extremity: COMMON NORMALS: normal to inspection, full ROM and no clubbing, cyanosis or edema; negative for no pedal edema RIGHT LOWER EXTREMITY: Yes hip joint Right hip: Yes inspection (Limb is shortened, internally rotated), Yes palpation (Very tender to palpation particularly at hip joint), Yes ROM (Decreased), Yes neurovascular exam (Sensation grossly intact) and Yes other (No apparent bruising or hematoma) Neuro: COMMON NORMALS: oriented x3, no focal motor deficits and no sensory deficits noted Psych: COMMON NORMALS: mental status grossly normal, thought process normal, cooperative, affect normal and speech normal SPEECH: Yes normal speech THOUGHT PROCESS: normal thought process Skin: COMMON NORMALS: no rashes or lesions noted, no jaundice, no petechiae and no mottling GENERAL SKIN EXAM: no rashes or lesions noted Urinary Catheter Management^: Hall: Cath Placed During This Visit: yes Urethral Indwelling: Yes Reason for Continuing Indwelling Catheter: Required Immobilization for Trauma or Surgery or Anesthesia (Acute right hip fracture requiring surgery) Data : 04/27/19 11:53 04/27/19 11:53 A&P Assessment and plan (1) Closed hip fracture requiring operative repair: -Acute right hip fracture following mechanical fall approximately 1 week ago -Imaging reviewed including CT, x-ray showing subcapital right femoral fracture -Hall catheter placed in ER; continue to monitor urine output, assess daily for removal though anticipate removal 24 hours postop -Ortho consult by Dr. Spaulding -Keep n.p.o. after midnight for OR tomorrow -IV fluid hydration once n.p.o. -Monitor vital signs -Pain control and antiemetics as needed -Bedrest Status: Acute Qualifiers: Encounter type: initial encounter Laterality: right Qualified Code(s): S72.001A - Fracture of unspecified part of neck of right femur, initial enco unter for closed fracture Code(s): S72.009A - Fracture of unspecified part of neck of unspecified femur, initial encounter for closed fracture (2) COPD (chronic obstructive pulmonary disease): -Has known COPD with nocturnal hypoxemia, at baseline uses 1 to 2 L nightly -Continue to monitor respiratory status, supplemental oxygen as needed -Chest x-ray reported as pulmonary vascular congestion, possible pneumonitis -We will start on low-dose oral steroids -No clinical signs of acute COPD exacerbation at this time -Neb treatments as needed Status: Acute Qualifiers: COPD type: emphysema Emphysema type: unspecified Qualified Code(s): J43.9 - Emphysema, unspecified Code(s): J44.9 - Chronic obstructive pulmonary disease, unspecified Additional A&P Information Additional A&P Information: -Depression/anxiety: resume celexa, abilify -Former smoker; quit smoking 2-3 yrs ago -Osteoporosis; on Aledronate 70 mg PO weekly -regular diet for now, NPO after midnight -GI ppx with famotidine -DVT ppx with SCDs for now, start on AC post-op -Dispo: pending surgery -Code status: FULL code -Admission to the medical surgical floor Attestations Medical Necessity Statement*: Kimberly Mosquera's hospital stay will require greater than 2 midnights for surgical management of an acute right hip fracture following a mechanical fall and appropriate postop care. Time Spent in Patient Care: Greater than 35 minutes (>than 50% of time spent in counselling and/or direct pt care on unit) . Coding Level of Care Code Acute Controlled Area Checker for Chg Fwd Diagnoses Closed hip fracture requiring operative repair S72.001A Encounter type: initial encounter Laterality: right COPD (chronic obstructive pulmonary disease) J43.9 COPD type: emphysema Emphysema type: unspecified
[2019-04-27] MEDS: ipratropium-albuterol 3 mL Neb INHALATION (20:01)
--- NOTE | 2019-04-27 21:10 | PC.NURSE ---
Assessment: I agree with Peyton's assessment on this patient.
[2019-04-27] MEDS: HYDROcodone-acetaminophen 5-325 mg Tablet 1 TAB PO (21:58)
[2019-04-27] MEDS: sodium chloride 0.9% 1,000 ML 75 ML IV (22:38)
[2019-04-27] MEDS: CELEcoxib 200 mg Capsule 400 MG PO (23:46)
[2019-04-27] MEDS: ARIPiprazole 10 mg Tablet 5 MG PO (23:49)
[2019-04-27] MEDS: famotidine 20 mg Tablet PO (23:51)
[2019-04-28] VITALS (27 sets, daily range): BP systolic 124–200; BP diastolic 59–89; PULSE 67–87; RESP 16–22; TEMP 36.4–37; O2SAT 91–98
[2019-04-28 07:00] LABS: Basophils % 0.8 %; Hematocrit 40.6 % (37.0-47.0); Lymphocytes # 0.6 10^3/uL (0.8-4.8); Lymphocytes % 12.8 %; Mean Corpuscular Hemoglobin 28.2 pg (28.0-34.0); Mean Corpuscular Volume 88.1 fL (81-99); Mean Platelet Volume 9.7 fL (7.4-10.4); Monocytes # 0.5 10^3/uL (0.2-0.9); Monocytes % 9.1 %; Neutrophils # 3.8 10^3/uL (1.8-7.7); Neutrophils % 77.1 %; Nucleated Red Blood Cells % 0 %; Platelet Count 208 10^3/cmm (130-400); Red Blood Count 4.61 10^6/uL (4.1-5.3); Red Cell Distribution Width 12.7 % (12.1-15.1); White Blood Count 4.9 10^3/uL (4.0-10.0)
[2019-04-28 07:21] LABS: Alanine Aminotransferase 7 U/L (0-33); Albumin Level 3.4 g/dL (3.5-5.2); Alkaline Phosphatase 75 IU/L (35-105); Anion Gap 13.1 (5-19); Aspartate Amino Transferase 11 U/L (0-32); Blood Urea Nitrogen 14 mg/dL (8-23); Calcium 9.2 mg/Dl (8.8-10.2); Carbon Dioxide 28 mmol/L (22-29); Chloride 100 mmol/L (98-107); Glucose 96 mg/dL (74-106); Potassium 4.1 mmol/L (3.5-5.1); Sodium 137 mmol/L (136-145); Total Bilirubin 0.8 mg/dL (0.15-1.2); Total Protein 6.4 g/dL (6.6-8.7)
[2019-04-28] MEDS: sodium chloride 0.9% 1,000 ML 75 ML IV (07:50)
[2019-04-28] MEDS: ipratropium-albuterol 3 mL Neb INHALATION (08:34)
[2019-04-28] MEDS: HYDROcodone-acetaminophen 5-325 mg Tablet 1 TAB PO ×2 (09:46→22:30)
--- NOTE | 2019-04-28 10:27 | P.ANES_ITS ---
Pre-Anesthetic Assessment Pre-Anesthetic Assessment: Height/Weight: Height 1.57 m Weight 95.254 kg Temp Pulse Resp BP Pulse Ox 97.5 F L 74 17 148/80 94 04/28/19 07:40 04/28/19 08:41 04/28/19 08:36 04/28/19 07:40 04/28/19 08:36 Preop Diagnosis: Right femoral neck fracture Proposed Procedure: Operation Date: 04/28/19 12:30 Proposed Procedures p Hemiarthroplasty Hip(Right) - Zachery Spaulding MD Last intake: Intake Last Liquid Date 04/27/19 Last Liquid Time 20:00 Last Solid Date 04/27/19 Last Solid Time 20:00 Social: Social History: Tobacco Packs per day: >50 pack years Comment: quit 3 months ago, home 02 for 2 years Airway: Dentition: False Pulmonary: Pulmonary: COPD Musc/skel: Musc/skel: Lower Back Pain Neuropsych: Neuropsych: Depression Anesthetic Plan: ASA status: III Anesthesia: General Meds/Allergies Current Medications: Current Medications Generic Name Dose Route Start Last Admin Trade Name Freq PRN Reason Stop Dose Admin Hydrocodone Bitart /Acetaminophen 1 tab 04/27/19 14:14 04/28/19 09:46 [place] 5-325 Mg PO 1 tab Q4H PRN Administration MODERATE TO SEVER E PAIN Albuterol/Ipratrop ium 3 ml 04/27/19 14:49 04/28/19 08:34 Duoneb INHALATION 3 ml Q6H PRN Administration SHORTNESS OF BUSTER TH Aripiprazole 5 mg 04/27/19 21:00 04/27/19 23:49 Abilify PO 5 mg BEDTIME ELYSE Administration Citalopram Hydrobr omide 10 mg 04/28/19 09:00 04/28/19 09:48 Celexa PO Not Given DAILY ELYSE Famotidine 20 mg 04/27/19 21:00 04/27/19 23:51 Pepcid Tab PO 20 mg BEDTIME ELYSE Administration Sodium Chloride 1,000 mls @ 75 ml s/hr 04/27/19 19:30 04/28/19 07:50 Sodium Chloride 0.9% IV 75 mls/hr .[id number] ELYSE Administration Morphine Sulfate 4 mg 04/27/19 14:51 04/27/19 17:57 Morphine IVP 4 mg Q4H PRN Administration SEVERE PAIN PFSH Anesthesia PFSH: Medical History Cervical vertebral fusion (Acute) Condyloma acuminata (Acute) s/p excision in 11/2017 COPD (chronic obstructive pulmonary disease) (Acute) Depression (Acute) Osteoporosis (Acute) takes Aledronate 70 mg once weekly Surgical History H/O shoulder surgery (Acute) left shoulder surgery Family History (Updated 04/27/19 @ 15:04 by Ketty Nguyen MD) Other Alcoholic cirrhosis of liver CAD (coronary artery disease) Social History (Updated 04/27/19 @ 15:04 by Ketty Nguyen MD) Smoking and tobacco status: former smoker Quit status (tobacco): has quit using tobacco Year quit tobacco: quit 2-3 yrs ago Alcohol intake: never Substance/Drug Use: never Household members: spouse Housing: House Data Anesthesia CBC & Chem 7: 04/28/19 06:38 04/28/19 06:38 Other Labs: Laboratory Results - last 48 hr 04/27/19 04/27/19 04/27/19 11:53 11:53 12:05 WBC 5.6 RBC 5.09 Hgb 14.2 Hct 44.7 MCV 87.8 MCH 27.9 L MCHC 31.8 RDW 12.7 Plt Count 166 MPV 10.3 Neut % (Auto) 84.6 Lymph % (Auto) 7.2 [place] % (Auto) 7.2 Eos % (Auto) 0.0 Baso % (Auto) 0.5 Neut # (Auto) 4.7 Lymph # (Auto) 0.4 L Valencia # (Auto) 0.4 Eos # (Auto) 0.0 Baso # (Auto) 0.0 Nucleated RBC % (auto) 0 Nucleated RBCs # 0.0 Sodium 148 H Potassium 4.0 Chloride 103 Carbon Dioxide 29 Anion Gap 20.0 H BUN 15 Creatinine 0.7 Glucose 101 Calcium 9.8 Total Bilirubin 1.0 AST 11 ALT 8 Alkaline Phosphatase 84 Total Protein 7.1 Albumin 3.7 Globulin 3.4 Urine Color Straw Urine Appearance Sl hazy Urine pH 5 Ur Specific [place] 1.020 Urine Protein Neg Urine Glucose (UA) Norm Urine Ketones 1+ H Urine Occult Blood 2+ H Urine Nitrate Negative Urine Bilirubin 1+ H Urine Urobilinogen 8 H Ur Leukocyte Esterase Negative Urine RBC 5-10 H Urine WBC None Ur Squamous Epith Cells 5-10 H Urine Bacteria Trace Urine Mucus 1+ 04/28/19 04/28/19 06:38 06:38 WBC 4.9 RBC 4.61 Hgb 13.0 Hct 40.6 MCV 88.1 MCH 28.2 MCHC 32.0 RDW 12.7 Plt Count 208 MPV 9.7 Neut % (Auto) 77.1 Lymph % (Auto) 12.8 Valencia % (Auto) 9.1 Eos % (Auto) 0.0 Baso % (Auto) 0.8 Neut # (Auto) 3.8 Lymph # (Auto) 0.6 L Valencia # (Auto) 0.5 Eos # (Auto) 0.0 Baso # (Auto) 0.0 Nucleated RBC % (auto) 0 Nucleated RBCs # 0.0 Sodium 137 Potassium 4.1 Chloride 100 Carbon Dioxide 28 Anion Gap 13.1 BUN 14 Creatinine 0.6 Glucose 96 Calcium 9.2 Total Bilirubin 0.8 AST 11 ALT 7 Alkaline Phosphatase 75 Total Protein 6.4 L Albumin 3.4 L Globulin 3.0 Urine Color Urine Appearance Urine pH Ur Specific [place] Urine Protein Urine Glucose (UA) Urine Ketones Urine Occult Blood Urine Nitrate Urine Bilirubin Urine Urobilinogen Ur Leukocyte Esterase Urine RBC Urine WBC Ur Squamous Epith Cells Urine Bacteria Urine Mucus Cardiac Studies: No Data to Display
--- NOTE | 2019-04-28 11:53 | PM.CONSULT ---
Providers/Reason For Consult Consulting Physican/Specialty*: Orthopedic surgery Reason for Consult*: Displaced right femoral neck fracture Requesting Physcian: Zachery Spaulding MD Attending Physician: Raheel Headley History of Present Illness History of Present Illness Kimberly Mosquera is a 69 year old female who describes falling Sunday 1 week ago when she tripped trying to get out of her car on the way to [facility]. She described immediate pain. She is seen in the emergency room where radiographs were reportedly negative. She states that she returned home and continued to attempt to bear weight she had more more discomfort. She ultimately seen back in the emergency room last night where radiographs revealed a displaced right femoral neck fracture. She is admitted for management of that fracture. She states prior to the fall a week ago she is ambulating independently without aids. Review of Systems Const: Denies: fever or chills Card: Denies: chest pain or palpitations Resp: Reports: shortness of breath (Attributable to COPD) GI: Denies: abdominal pain, nausea or vomiting : Denies: difficulty urinating or urinary frequency Neuro: Denies: numbness in extremities Jeremiah/Lymph: Denies: easy bruising or easy bleeding Meds/Allergies Home Medications and Allergies Home Medications Medication Instructions Recorded Confirmed Type alendronate 70 mg PO Q7D 04/21/19 04/27/19 History aripiprazole [Abilify] 5 mg PO BEDTIME 04/21/19 04/27/19 History citalopram [Celexa] 10 mg PO DAILY 04/21/19 04/27/19 History [id number] 1 inh INHALATION DAILY 04/21/19 04/27/19 History [Trelegy Ellipta] albuterol sulfate See Rx Instructions .ROUTE .COMPLEX 04/27/19 04/27/19 History albuterol sulfate [Ventolin HFA] 2 puff INHALATION QID PRN 04/27/19 04/27/19 History chlorpheniramine maleate 4 mg PO DAILY PRN 04/27/19 04/27/19 History [ChlorTabs] tramadol See Rx Instructions .ROUTE 04/27/19 04/27/19 History .COMPLEX PRN Allergies Allergy/AdvReac Type Severity Reaction Status Date / Time Penicillins Allergy ALGY-Anaphy Verified 04/21/19 12:11 laxis Current Medications Current Medications Generic Name Dose Route Start Last Admin Trade Name Freq PRN Reason Stop Dose Admin Hydrocodone Bitart/Acetaminophen 1 tab 04/27/19 14:14 04/28/19 09:46 [place] 5-325 Mg PO 1 tab Q4H PRN Administration MODERATE TO SEVERE PAIN Albuterol/Ipratropium 3 ml 04/27/19 14:49 04/28/19 08:34 Duoneb INHALATION 3 ml Q6H PRN Administration SHORTNESS OF BREATH Aripiprazole 5 mg 04/27/19 21:00 04/27/19 23:49 Abilify PO 5 mg BEDTIME ELYSE Administration Citalopram Hydrobromide 10 mg 04/28/19 09:00 04/28/19 09:48 Celexa PO Not Given DAILY ELYSE Famotidine 20 mg 04/27/19 21:00 04/27/19 23:51 Pepcid Tab PO 20 mg BEDTIME ELYSE Administration Sodium Chloride 1,000 mls @ 75 mls/hr 04/27/19 19:30 04/28/19 07:50 Sodium Chloride 0.9% IV 75 mls/hr .[id number] ELYSE Administration Morphine Sulfate 4 mg 04/27/19 14:51 04/27/19 17:57 Morphine IVP 4 mg Q4H PRN Administration SEVERE PAIN PFSH Acute PFSH: Statuses (acute, chronic, etc) shown below reflect problem list status as previously entered and may not be historically accurate Medical History Cervical vertebral fusion (Acute) Condyloma acuminata (Acute) s/p excision in 11/2017 COPD (chronic obstructive pulmonary disease) (Acute) Depression (Acute) Osteoporosis (Acute) takes Aledronate 70 mg once weekly Surgical History H/O shoulder surgery (Acute) left shoulder surgery Family History (Updated 04/27/19 @ 15:04 by Ketty Nguyen MD) Other Alcoholic cirrhosis of liver CAD (coronary artery disease) Social History (Updated 04/27/19 @ 15:04 by Ketty Nguyen MD) Smoking and tobacco status: former smoker Quit status (tobacco): has quit using tobacco Year quit tobacco: quit 2-3 yrs ago Alcohol intake: never Substance/Drug Use: never Household members: spouse Housing: House Vitals/I&O/Wt Last Vital Signs Temp 97.8 F 04/28/19 10:33 Pulse 74 04/28/19 10:33 Resp 17 04/28/19 08:36 BP 154/63 04/28/19 10:33 Pulse Ox 94 04/28/19 10:33 04/27/19 04/28/19 04/28/19 22:59 06:59 14:59 Intake Total 220 / 220 791.25 / 1011.25 148.75 / 148.75 Output Total 375 / 375 350 / 725 Balance -155 / -155 441.25 / 286.25 148.75 / 148.75 Weight last 48 hrs Weight 210 lb Physical Exam Narrative: EXAM NARRATIVE: Patient is a elderly female receiving oxygen by nasal cannula, pleasant to conversation, in no acute distress. She has severe pain with any motion of the right hip. She will flex extend her toes and her ankle. She has a palpable right dorsalis pedis pulse. Her sensation is intact light touch. Resp: COMMON NORMALS: clear to auscultation bilaterally AUSCULTATION: clear to auscultation bilaterally Cardio: COMMON NORMALS: S1 normal heart sound and S2 normal heart sound HEART SOUNDS: S1 normal and S2 normal GI: INSPECTION: Yes normal to inspection Extremity: RIGHT LOWER EXTREMITY: Yes hip joint Urinary Catheter Management^: Hall: Cath Placed During This Visit: no Data Imaging^: Xray Ortho: My impression: I reviewed radiographs of the right proximal femur. The patient has a displaced right femoral neck fracture A&P Assessment and plan (1) Displaced fracture of right femoral neck: Status: Acute Code(s): S72.001A - Fracture of unspecified part of neck of right femur, initial encounter for closed fracture Additional A&P Information Additional A&P Information: I discussed options with the patient. The fracture occurred a week ago and is displaced. I think the chance of getting this to heal with open reduction internal fixation is highly unlikely. Her best option with medical comorbidities would be a hemiarthroplasty. I discussed hip arthroplasty with the patient models. I made her aware of risk with the procedure. I discussed risk of a possible instability or dislocation. I discussed the possibility of continued pain. I discussed risk of component failure loosening the need for revision. I discussed risk of deep venous thromboses and pulmonary emboli even with anticoagulation. I discussed anesthetic risk with surgery. The patient understands all her alternativesand agrees to proceed with total hip arthroplasty. They expressed good understanding was offered the opportunity for her questions to be answered. Coding Level of Care Code Acute High School Business Teacher for Dolly Andrew Diagnoses Displaced fracture of right femoral neck S72.001A
[2019-04-28] MEDS: sodium chloride 0.9% 1,000 ML 30 ML IV (12:30)
[2019-04-28] MEDS: clindamycin 600 MG/50 ML PREMIX 100 MG IV (12:55)
[2019-04-28] MEDS: tranexamic acid 1,000 mg/10mL SDV 2000 MG IRRIGATION (13:38)
--- NOTE | 2019-04-28 14:07 | P.OP_ITS ---
Operative Report Date of procedure: 04/28/19 Preop Diagnosis: Displaced right femoral neck Post-op diagnosis: same Post-op Findings: Same Procedure Done: Right hip bipolar arthroplasty Implants: [place] secure fit PHILLIPS size 7 femoral stem, 47 mm bipolar head, 28 mm diameter/standard neck length femoral head Pathology: none sent Anesthesia: general Estimated blood loss (mL): 300 Complications: None Findings: Patient had a displaced fracture of the right femoral neck Condition: stable Disposition: PACU Procedure: The patient was taken to the operating room and a general l anesthesia was provided by the anesthesia service. They were given 600 mg of clindamycin. and positioned in the lateral position with the hip exposed. A 10 cm long incision was made over the greater trochanter with a scalpel blade. Dissection was carried down through the fascia elena to the greater trochanter. The anterior two thirds of gluteus medius and minimus were elevated off the greater trochanter with electrocautery. The capsule was divided T like fashion. The hip was externally rotated and the neck brought up into the wound. An oscillating saw was really used to resect the neck just above the level of the lesser trochanter. The femoral head was removed and the acetabulumt sized to a 47 mm bipolar head. Sequential reaming of the canal was accomplished up to a size 7. The canal was broached to a size 7 and a size 7 Britt Securefit PHILLIPS stem was press fit into place. A trial reduction with a standard neck provided excellent stability. The final head and neck were placed and the hip reduced. The anterior capsule were reapproximated with 1 Ethibond. The gluteus medius and minimus were repaired through the greater trochanter with 5 Ethibond and reinforced with 1 Ethibond. The fascia elena was closed with 1 Ethibond. The subcutaneous tissues were closed with 2-0 Vicryl. The skin was closed with skin che. Sterile dressings were applied. The patient was placed in abduction pillow and taken recovery room in stable condition.
--- NOTE | 2019-04-28 14:39 | XR_ITS ---
WS: [id number] HIP WITH PELVIS RIGHT TECHNIQUE: 3 views of the right hip with pelvis CLINICAL INFORMATION: POST OP HIP SURGERY COMPARISON: None. FINDINGS: Postoperative changes right BRANDAN. No evidence of hardware loosening. Hardware appears in good position . XR/XR hip RT 2-3V wo/w pel* [id number] IMPRESSION: Satisfactory postoperative right BRANDAN.
[2019-04-28] MEDS: morphine 4 mg/mL SDV 1 mL 2 MG IVP ×4 (14:48→21:26)
--- NOTE | 2019-04-28 15:01 | PC.CHAP ---
Pastoral Care Encounter/Spiritual Assessment Type of Contact [] Declined facialist visit [] Patient/Family/Request visit [] Outpatient visit [] Follow-up visit [] Physician referral [] Code/Alert [] Routine visit [] Staff referral [] Actively dying [] Patient sleeping [] Family support [] [x] Out of room [] Palliative care [] [] Receiving care in room [] Pre-surgical visit [] Trauma [] Long length of stay [] ICU visit [] Other: Relational/Emotional Strength [] Patient feels connected with others/family/visitors/staff [] Distress [] Loneliness/isolation [] Abandonment Spirituality of Patient [] Person of Lilli [] Attends Religious of their Lilli [] Believes in Prayer [] Reads Bible or Moravian materials [] There are Spiritual issues to be addressed Yacht Hand Interventions [] Prayer [] Active listening [] Non-anxious presence [] Spiritual/emotional support [] Crisis/trauma care [] Spiritual counseling [] Bereavement support [] Provided bereavement packet [] Provided Bible/devotional materials [] Provided toy/stuffed animal, coloring book to patient or family member [] Completed spiritual assessment [] Provided Communion [] Anointing/[place] [] Salvation [] Other: Impact on Illness or Injury [] Angry [] Fearful [] Anxious [] Often cries [] Exhaustion [] Unable to work [] Unable to attend quaker [] Unable to walk/stand [] Unable to read [] Unable to drive [] Unable to eat/drink [] Unable to sleep [] Unable to be with family [] Other: Summary Patient out of room for testing. Follow up needed. Time spent with patient 2 minutes
--- NOTE | 2019-04-28 15:14 | SUR.PHASEI ---
1514 PT AWAKES EASILY SEE EARLIER PAIN MEDS GIVEN, PT DOZES IF NOT DISTURBED WITH GOOD RESP NOTED PT COUGHS OCC AND STRONGLY RT HIP DRESSING D/I FIRST ICE TO HIP DISTAL PULSE STRONG AND REGULAR ABD PILLOW IN PLACE X RAYS DONE, PT NOW OUT O F PHASE 1 AND IN HOLDING WAITING TO GIVE REPORT TO FLOOR NURSE. FAMILY NOT IN WAITING ROOM.
--- NOTE | 2019-04-28 16:17 | SUR.PHASEI ---
1530 PT TO ROOM ALERT TALKATIVE WITH STAFF IN ROOM, PT DENTURES UPPER AND LOWER IN PER PT, PT PHONE ON INSTALLMENT ACCOUNT CHECKER NOW IN ROOM, RT HIP DRESSING D/I, FOLEYPATENT OF DK SARAH URINE, STATLOCK TO LT THIGH
[2019-04-28] MEDS: sennosides-docusate Tablet 2 TAB PO (18:41)
[2019-04-28] MEDS: calcium carbonate 500 mg Chew Tablet 1000 MG PO (18:41)
[2019-04-28] MEDS: iron polysaccharide complex 150 mg Capsule PO (18:42)
--- NOTE | 2019-04-28 20:20 | P.PN_ITS ---
Subjective Subjective: Interval history: Postoperatively reports she is not yet sure how she is doing. Eating dinner. Surrounded by family. Not in significant pain. Vitals/I&O/Wt Last Vital Signs Temp 97.6 F 04/28/19 18:22 Pulse 86 04/28/19 18:22 Resp 18 04/28/19 18:22 BP 130/61 04/28/19 18:22 Pulse Ox 98 04/28/19 18:22 04/28/19 04/28/19 04/28/19 06:59 14:59 22:59 Intake Total 791.25 / 1011.25 2007.75 / 2007.75 150 / 2158.75 Output Total 350 / 725 300 / 300 350 / 650 Balance 441.25 / 286.25 1708.75 / 1708.75 -200 / 1508.75 Weight last 48 hrs Weight 95.254 kg Physical Exam Const: COMMON NORMALS: no apparent distress and oriented x3 HENMT: COMMON NORMALS: oropharynx normal Neck/C-Spine: COMMON NORMALS: no JVD Resp: COMMON NORMALS: normal respiratory effort and clear to auscultation bilaterally AUSCULTATION: clear to auscultation bilaterally Cardio: COMMON NORMALS: no JVD, regular rhythm, S1 normal heart sound, S2 normal heart sound and no murmurs RHYTHM: regular rhythm HEART SOUNDS: S1 normal and S2 normal GI: COMMON NORMALS: normal to inspection, nondistended, normoactive bowel sounds, soft to palpation and non-tender PALPATION: Yes soft Extremity: COMMON NORMALS: no joint enlargement and no pedal edema NARRATIVE EXTREMITY EXAM: Right hip covered by dressing. No significant bruising, no bleeding. Ice pack is on. Neuro: COMMON NORMALS: oriented x3 and moves all extremities Skin: COMMON NORMALS: no rashes or lesions noted GENERAL SKIN EXAM: no rashes or lesions noted Urinary Catheter Management^: Hall: Cath Placed During This Visit: no A&P Assessment and plan (1) Closed hip fracture requiring operative repair: Status post right hip bipolar arthroplasty. EBL 300 mL. Continues on Lovenox for DVT prophylaxis. Status: Deleted Qualifiers: Encounter type: initial encounter Laterality: right Qualified Code(s): S72.001A - Fracture of unspecified part of neck of right femur, initial encounter for closed fracture Code(s): S72.009A - Fracture of unspecified part of neck of unspecified femur, initial encounter for closed fracture (2) COPD (chronic obstructive pulmonary disease): Denies significant cough or shortness of breath. Discussed with her possible pneumonitis on imaging. Currently denies symptoms that may be associated with pneumonia. Continue to monitor. Status: Acute Qualifiers: COPD type: emphysema Emphysema type: unspecified Qualified Code(s): J43.9 - Emphysema, unspecified Code(s): J44.9 - Chronic obstructive pulmonary disease, unspecified Additional A&P Information Depression/anxiety: resume celexapedro Former smoker; quit smoking 2-3 yrs ago Osteoporosis; on Aledronate 70 mg PO weekly Attestations Medical Necessity Statement*: Continue admission for management after right hip fracture and repair. Coding Level of Care Code Acute General Farm Hand [facility] Diagnoses Closed hip fracture requiring operative repair S72.001A Encounter type: initial encounter Laterality: right COPD (chronic obstructive pulmonary disease) J43.9 COPD type: emphysema Emphysema type: unspecified
[2019-04-28] MEDS: ARIPiprazole 10 mg Tablet 5 MG PO (21:30)
[2019-04-28] MEDS: clindamycin 900 MG/50 ML PREMIX 100 MG IV (22:25)
[2019-04-28] MEDS: chlorhexidine gluconate 0.12% Btl 473 mL 30 ML MUCOUS MEM (22:26)
[2019-04-28] MEDS: sodium chloride 0.9% 1,000 ML 100 ML IV (22:26)
[2019-04-29] VITALS (10 sets, daily range): BP systolic 138–151; BP diastolic 74–78; PULSE 64–82; RESP 18–24; TEMP 36.4–36.8; O2SAT 85–98
[2019-04-29 03:46] LABS: Anion Gap 12.3 (5-19); Blood Urea Nitrogen 12 mg/dL (8-23); Calcium 8.6 mg/Dl (8.8-10.2); Carbon Dioxide 25 mmol/L (22-29); Chloride 104 mmol/L (98-107); Glucose 124 mg/dL (74-106); Potassium 4.3 mmol/L (3.5-5.1); Sodium 137 mmol/L (136-145)
[2019-04-29 03:58] LABS: Basophils % 0.6 %; Hematocrit 38.7 % (37.0-47.0); Hemoglobin 12.4 g/dL (11.5-15.3); Lymphocytes # 0.5 10^3/uL (0.8-4.8); Lymphocytes % 6.6 %; Mean Corpuscular Hemoglobin 28.2 pg (28.0-34.0); Mean Platelet Volume 10.8 fL (7.4-10.4); Monocytes # 0.6 10^3/uL (0.2-0.9); Monocytes % 8.7 %; Neutrophils % 83.5 %; Nucleated Red Blood Cells % 0 %; Platelet Count 184 10^3/cmm (130-400); Red Cell Distribution Width 12.5 % (12.1-15.1); White Blood Count 7.2 10^3/uL (4.0-10.0)
[2019-04-29] MEDS: clindamycin 900 MG/50 ML PREMIX 100 MG IV (05:15)
[2019-04-29] MEDS: HYDROcodone-acetaminophen 5-325 mg Tablet 1 TAB PO ×4 (06:15→21:14)
[2019-04-29] MEDS: chlorhexidine gluconate 0.12% Btl 473 mL 30 ML MUCOUS MEM ×4 (06:34→21:15)
--- NOTE | 2019-04-29 07:47 | P.PN_ITS ---
Subjective Subjective: Interval history: Pain OK with meds. Hall discontinued. Tolerating po intake Vitals/I&O/Wt Last Vital Signs Temp 98.3 F 04/29/19 07:44 Pulse 64 04/29/19 07:44 Resp 18 04/29/19 07:44 BP 138/78 04/29/19 07:44 Pulse Ox 96 04/29/19 07:44 04/28/19 04/29/19 04/29/19 22:59 06:59 14:59 Intake Total 150 / 2158.75 1105.333 / 3264.083 Output Total 350 / 650 250 / 900 Balance -200 / 1508.75 855.333 / 2364.083 Weight last 48 hrs Weight 210 lb Physical Exam Narrative: EXAM NARRATIVE: Right hip dressing clean and dry. Minimal swelling thigh Urinary Catheter Management^: Hall: Cath Placed During This Visit: no A&P Assessment and plan (1) Displaced fracture of right femoral neck: Status: Acute Code(s): S72.001A - Fracture of unspecified part of neck of right femur, initial encounter for closed fracture (2) History of right hip hemiarthroplasty: We will begin mobilizing therapy. Patient may be able to be discharged home. We will continue to follow. Doing well thus far Status: Acute Code(s): Z96.641 - Presence of right artificial hip joint Attestations Medical Necessity Statement*: Patient requires continued therapy. Will evaluate tomorrow for possible discharge home versus longterm. 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
[2019-04-29] MEDS: citalopram 20 mg Tablet 10 MG PO (09:35)
[2019-04-29] MEDS: sennosides-docusate Tablet 2 TAB PO ×2 (09:35→18:01)
[2019-04-29] MEDS: multivitamin therapeutic Tablet 1 TAB PO (09:35)
[2019-04-29] MEDS: iron polysaccharide complex 150 mg Capsule PO ×2 (09:36→18:01)
[2019-04-29] MEDS: cholecalciferol (vitamin D3) 1,000 unit Tablet 1000 UNIT PO (09:36)
[2019-04-29] MEDS: mupirocin oint 22 gm 1 APPLIC NASAL ×2 (09:42→18:02)
[2019-04-29] MEDS: enoxaparin 40 mg/0.4 mL Syringe SUBCUT (11:17)
[2019-04-29] MEDS: ipratropium-albuterol 3 mL Neb INHALATION ×2 (14:05→20:25)
--- NOTE | 2019-04-29 18:46 | P.PN_ITS ---
Subjective Subjective: Interval history: She denies significant pain at the moment. States that she was sat in the chair by physical therapy. Was having some issues with calling for help states that the cold buttons on the bed have not been functioning. While visiting we tried calling with the dedicated call button, and it worked well. She also reports that some of her medications have not been restarted. On review her medications citalopram and Abilify were restarted. She was not sure of the name of the medication she takes at home, states that one is for her nurse, and another one is an allergy medication. She states she takes 1 of them twice a day. Her significant other and family were not sure either. Discussed with nursing staff will try to confirm with pharmacy what medications may be missing. Vitals/I&O/Wt Last Vital Signs Temp 98.2 F 04/29/19 16:00 Pulse 82 04/29/19 16:00 Resp 18 04/29/19 16:00 BP 145/78 04/29/19 16:00 Pulse Ox 93 04/29/19 16:00 04/29/19 04/29/19 04/29/19 06:59 14:59 22:59 Intake Total 1105.333 / 3264.083 600 / 600 240 / 840 Output Total 250 / 900 275 / 275 Balance 855.333 / 2364.083 600 / 600 -35 / 565 Physical Exam Const: COMMON NORMALS: no apparent distress and oriented x3 HENMT: COMMON NORMALS: oropharynx normal Neck/C-Spine: COMMON NORMALS: no JVD Resp: COMMON NORMALS: normal respiratory effort and clear to auscultation bilaterally AUSCULTATION: clear to auscultation bilaterally Cardio: COMMON NORMALS: no JVD, regular rhythm, S1 normal heart sound, S2 normal heart sound and no murmurs RHYTHM: regular rhythm HEART SOUNDS: S1 normal and S2 normal GI: COMMON NORMALS: normal to inspection, nondistended, normoactive bowel sounds, soft to palpation and non-tender PALPATION: Yes soft Extremity: COMMON NORMALS: no joint enlargement and no pedal edema NARRATIVE EXTREMITY EXAM: Right hip covered by dressing. No significant bruising, no bleeding. Neuro: COMMON NORMALS: oriented x3 and moves all extremities Skin: COMMON NORMALS: no rashes or lesions noted GENERAL SKIN EXAM: no rashes or lesions noted Urinary Catheter Management^: Hall: Cath Placed During This Visit: no A&P Assessment and plan (1) Closed hip fracture requiring operative repair: Hemoglobin with only mild downtrend. Does not have significant pain. She feels she needed significant assistance with trying to get into the chair. Her preference would be to discharge to SNF for rehabilitation prior to return home. Continues on Lovenox for DVT prophylaxis. Status: Deleted Qualifiers: Encounter type: initial encounter Laterality: right Qualified Code(s): S72.001A - Fracture of unspecified part of neck of right femur, initial enc ounter for closed fracture Code(s): S72.009A - Fracture of unspecified part of neck of unspecified femur, initial encounter for closed fracture (2) COPD (chronic obstructive pulmonary disease): Denies significant cough or shortness of breath. Discussed with her possible pneumonitis on imaging. Currently denies symptoms that may be associated with pneumonia. Continue to monitor. Status: Acute Qualifiers: COPD type: emphysema Emphysema type: unspecified Qualified Code(s): J43.9 - Emphysema, unspecified Code(s): J44.9 - Chronic obstructive pulmonary disease, unspecified Additional A&P Information Depression/anxiety: resume celexa, abilify Former smoker; quit smoking 2-3 yrs ago Osteoporosis; on Aledronate 70 mg PO weekly Attestations Medical Necessity Statement*: Continue admission for postoperative management after right hip fracture and repair. 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
[2019-04-29] MEDS: sodium chloride 0.9% 1,000 ML 100 ML IV (21:14)
[2019-04-29] MEDS: ARIPiprazole 10 mg Tablet 5 MG PO (21:14)
[2019-04-30] VITALS (14 sets, daily range): BP systolic 127–168; BP diastolic 60–73; PULSE 72–87; RESP 17–20; TEMP 36.7–37.1; O2SAT 86–97
[2019-04-30] MEDS: ipratropium-albuterol 3 mL Neb INHALATION ×4 (03:37→21:35)
[2019-04-30] MEDS: HYDROcodone-acetaminophen 5-325 mg Tablet 1 TAB PO ×4 (04:59→17:15)
[2019-04-30 06:43] LABS: Basophils % 0.4 %; Hemoglobin 11.9 g/dL (11.5-15.3); Lymphocytes # 0.5 10^3/uL (0.8-4.8); Lymphocytes % 6.4 %; Mean Corpuscular HGB Conc 32.2 g/dL (30.0-36.0); Mean Corpuscular Volume 87.1 fL (81-99); Mean Platelet Volume 10.2 fL (7.4-10.4); Monocytes # 0.6 10^3/uL (0.2-0.9); Monocytes % 8.4 %; Neutrophils # 6.2 10^3/uL (1.8-7.7); Neutrophils % 84.4 %; Nucleated Red Blood Cells % 0 %; Platelet Count 210 10^3/cmm (130-400); Red Blood Count 4.25 10^6/uL (4.1-5.3); Red Cell Distribution Width 12.6 % (12.1-15.1); White Blood Count 7.3 10^3/uL (4.0-10.0)
[2019-04-30] MEDS: sodium chloride 0.9% 1,000 ML 100 ML IV (08:35)
[2019-04-30] MEDS: calcium carbonate 500 mg Chew Tablet 1000 MG PO ×2 (08:36→17:15)
[2019-04-30] MEDS: iron polysaccharide complex 150 mg Capsule PO ×2 (08:36→17:15)
[2019-04-30] MEDS: cholecalciferol (vitamin D3) 1,000 unit Tablet 1000 UNIT PO (08:36)
[2019-04-30] MEDS: citalopram 20 mg Tablet 10 MG PO (08:36)
[2019-04-30] MEDS: multivitamin therapeutic Tablet 1 TAB PO (08:36)
[2019-04-30] MEDS: sennosides-docusate Tablet 2 TAB PO ×2 (08:36→17:15)
[2019-04-30] MEDS: enoxaparin 40 mg/0.4 mL Syringe SUBCUT (10:14)
--- NOTE | 2019-04-30 10:22 | PC.NURSE ---
ot will be helping the patient with her bathing needs today
--- NOTE | 2019-04-30 10:30 | PC.SOCIAL ---
IMM Page 2 of IMM explained to and signed by patient. She verbalizes understanding. Initialed, dated, and timed and placed in chart. Copy provided to patient.
[2019-04-30] MEDS: acetaminophen 325 mg Tablet 650 MG PO ×2 (11:35→19:22)
[2019-04-30] MEDS: chlorhexidine gluconate 0.12% Btl 473 mL 30 ML MUCOUS MEM ×3 (12:40→21:46)
--- NOTE | 2019-04-30 13:29 | P.PN_ITS ---
Subjective Subjective: Interval history: Pain okay with meds. Tolerating p.o. intake. Hall discontinued and passing urine Vitals/I&O/Wt Last Vital Signs Temp 98.1 F 04/30/19 11:34 Pulse 87 04/30/19 11:34 Resp 20 H 04/30/19 11:34 BP 168/60 04/30/19 11:34 Pulse Ox 91 04/30/19 11:34 04/29/19 04/30/19 04/30/19 22:59 06:59 14:59 Intake Total 606.667 / 0763.421 0616.000 / 2386.667 1270 / 1270 Output Total 675 / 675 300 / 300 Balance -68.333 / 390.758 7691.000 / 1711.667 970 / 970 Physical Exam 2 Narrative: EXAM NARRATIVE: Right hip dressing clean and dry. Patient has a larger thigh but I can see no significant swelling. Urinary Catheter Management^: Hall: Cath Placed During This Visit: no A&P Assessment and plan (1) History of right hip hemiarthroplasty: Status: Acute Code(s): Z96.641 - Presence of right artificial hip joint Additional A&P Information Continue to mobilize with therapy. Patient with dementia and progress slow. Will need assisted. Patient in agreement. Attestations Medical Necessity Statement*: As per medicine, stable for discharge to SNF per Ortho Coding Level of Care Code Acute Manager Credit for [facility] Diagnoses History of right hip hemiarthroplasty Z96.641
--- NOTE | 2019-04-30 20:19 | P.PN_ITS ---
Subjective Subjective: Interval history: Denies any pain. Sitting up in chair enjoying her lunch. Reports she did well with physical therapy. Says she is working with discharge planning for placement to SNF. Vitals/I&O/Wt Last Vital Signs Temp 98.7 F 04/30/19 16:04 Pulse 80 04/30/19 16:04 Resp 18 04/30/19 16:04 BP 150/73 04/30/19 16:04 Pulse Ox 89 L 04/30/19 16:04 04/30/19 04/30/19 04/30/19 06:59 14:59 22:59 Intake Total 1180.000 / 2386.667 1270 / 1270 Output Total 300 / 300 Balance 1180.000 / 1711.667 970 / 970 Physical Exam Const: COMMON NORMALS: no apparent distress and oriented x3 HENMT: COMMON NORMALS: oropharynx normal Neck/C-Spine: COMMON NORMALS: no JVD Resp: COMMON NORMALS: normal respiratory effort and clear to auscultation bilaterally AUSCULTATION: clear to auscultation bilaterally Cardio: COMMON NORMALS: no JVD, regular rhythm, S1 normal heart sound, S2 normal heart sound and no murmurs RHYTHM: regular rhythm HEART SOUNDS: S1 normal and S2 normal GI: COMMON NORMALS: normal to inspection, nondistended, normoactive bowel sounds, soft to palpation and non-tender PALPATION: Yes soft Extremity: COMMON NORMALS: no joint enlargement and no pedal edema NARRATIVE EXTREMITY EXAM: Right hip covered by dressing. No significant bruising, no bleeding. Neuro: COMMON NORMALS: oriented x3 and moves all extremities Skin: COMMON NORMALS: no rashes or lesions noted GENERAL SKIN EXAM: no rashes or lesions noted Urinary Catheter Management^: Hall: Cath Placed During This Visit: no A&P Assessment and plan (1) Closed hip fracture requiring operative repair: Doing well postoperatively. Continues on Lovenox for DVT prophylaxis. Remove Hall. Awaiting placement to SNF. Status: Deleted Qualifiers: Encounter type: initial encounter Laterality: right Qualified Code(s): S72.001A - Fracture of unspecified part of neck of right femur, initial e ncounter for closed fracture Code(s): S72.009A - Fracture of unspecified part of neck of unspecified femur, initial encounter for closed fracture (2) COPD (chronic obstructive pulmonary disease): Denies significant cough or shortness of breath. Discussed with her possible pneumonitis on imaging. Currently denies symptoms that may be associated with pneumonia. Continue to monitor. Status: Acute Qualifiers: COPD type: emphysema Emphysema type: unspecified Qualified Code(s): J43.9 - Emphysema, unspecified Code(s): J44.9 - Chronic obstructive pulmonary disease, unspecified Additional A&P Information Depression/anxiety: resume pedro rankin Former smoker; quit smoking 2-3 yrs ago Osteoporosis; on Aledronate 70 mg PO weekly Attestations Medical Necessity Statement*: Continue admission for postoperative care after hip fracture and repair. Disposition arrangements. 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
[2019-04-30] MEDS: ARIPiprazole 10 mg Tablet 5 MG PO (21:46)
[2019-05-01] VITALS (9 sets, daily range): BP systolic 126–145; BP diastolic 66–73; PULSE 70–87; RESP 16–20; TEMP 36.3–37.2; O2SAT 91–97
[2019-05-01] MEDS: ipratropium-albuterol 3 mL Neb INHALATION ×2 (02:18→09:22)
[2019-05-01] MEDS: HYDROcodone-acetaminophen 5-325 mg Tablet 1 TAB PO (03:57)
[2019-05-01 07:43] LABS: Basophils % 0.5 %; Hematocrit 39.7 % (37.0-47.0); Hemoglobin 12.8 g/dL (11.5-15.3); Lymphocytes # 0.7 10^3/uL (0.8-4.8); Lymphocytes % 8.9 %; Mean Corpuscular HGB Conc 32.2 g/dL (30.0-36.0); Mean Corpuscular Hemoglobin 29.2 pg (28.0-34.0); Mean Corpuscular Volume 90.6 fL (81-99); Mean Platelet Volume 10.3 fL (7.4-10.4); Monocytes # 0.6 10^3/uL (0.2-0.9); Monocytes % 7.2 %; Neutrophils # 6.4 10^3/uL (1.8-7.7); Neutrophils % 82.9 %; Nucleated Red Blood Cells % 0 %; Platelet Count 214 10^3/cmm (130-400); Red Blood Count 4.38 10^6/uL (4.1-5.3); Red Cell Distribution Width 12.9 % (12.1-15.1); White Blood Count 7.8 10^3/uL (4.0-10.0)
[2019-05-01] MEDS: citalopram 20 mg Tablet 10 MG PO (09:09)
[2019-05-01] MEDS: multivitamin therapeutic Tablet 1 TAB PO (09:09)
[2019-05-01] MEDS: iron polysaccharide complex 150 mg Capsule PO (09:09)
[2019-05-01] MEDS: cholecalciferol (vitamin D3) 1,000 unit Tablet 1000 UNIT PO (09:09)
[2019-05-01] MEDS: sennosides-docusate Tablet 2 TAB PO (09:09)
[2019-05-01] MEDS: calcium carbonate 500 mg Chew Tablet 1000 MG PO (09:10)
[2019-05-01] MEDS: chlorhexidine gluconate 0.12% Btl 473 mL 30 ML MUCOUS MEM (09:10)
[2019-05-01] MEDS: enoxaparin 40 mg/0.4 mL Syringe SUBCUT (09:57)
--- NOTE | 2019-05-01 13:48 | P.DS_ITS ---
Discharge Providers Date of Admission: 04/27/19 12:15 Date of Discharge: 05/01/19 Attending Provider at Admission: Ketty Nguyen MD Attending Provider at Discharge: Raheel Headley Consults: Zachery Spaulding Diagnoses at Discharge Discharge Diagnosis (1) Closed hip fracture requiring operative repair: Status: Deleted Qualifiers: Encounter type: initial encounter Laterality: right Qualified Code(s): S72.001A - Fracture of unspecified part of neck of right femur, initial encounter for closed fracture (2) COPD (chronic obstructive pulmonary disease): Status: Acute Qualifiers: COPD type: emphysema Emphysema type: unspecified Qualified Code(s): J43.9 - Emphysema, unspecified Reason for Visit Reason for Visit: Reason For Visit: R hip fracture Hospital Course Hospital Course: 69-year-old lady with history of COPD, with as needed nighttime oxygen, osteoporosis, depression, DJD was admitted for assessment management of right hip pain after a fall a week prior, with persistent pain when trying to walk, was found to have impacted right subcapital femoral fracture. She was assessed by orthopedics and underwent right hip bipolar arthroplasty. She has had good recovery subsequently, with stable hemoglobin, and so far has been working with physical therapy. She will continue rehabilitation at SNF with further outpatient follow-up. Physical Exam Urinary Catheter Management^: Hall: Cath Placed During This Visit: no Discharge Data Data Completed and Pending: Completed Studies During Hospitalization Category Date Time Status CT bony pelvis 72 192 Urgent Cat Scan 04/27/19 10:32 Completed XR chest 1V tony ble 48008 Urgent Exams 04/27/19 11:38 Completed XR femur RT min 2 V* 52373 Urgent Exams 04/27/19 10:32 Completed XR hip RT 2-3V wo /w pel* [id number] Rout ine Exams 04/28/19 14:39 Completed XR knee RT 1-2V 7 3560 Urgent Exams 04/27/19 10:32 Completed Labs from last 24 hours 05/01/19 07:08 WBC 7.8 RBC 4.38 Hgb 12.8 Hct 39.7 MCV 90.6 MCH 29.2 MCHC 32.2 RDW 12.9 Plt Count 214 MPV 10.3 Neut % (Auto) 82.9 Lymph % (Auto) 8.9 [place] % (Auto) 7.2 Eos % (Auto) 0.0 Baso % (Auto) 0.5 Neut # (Auto) 6.4 Lymph # (Auto) 0.7 L [place] # (Auto) 0.6 Eos # (Auto) 0.0 Baso # (Auto) 0.0 Nucleated RBC % (a uto) 0 Nucleated RBCs # 0.0 Vitals: Last Vital Signs Temp 99 F 05/01/19 11:46 Pulse 84 05/01/19 11:46 Resp 20 H 05/01/19 11:46 BP 144/66 05/01/19 11:46 Pulse Ox 91 05/01/19 11:46 Discharge Plan Discharge Patient Disposition: Xfer SNF Condition: Stable Prescriptions: New hydrocodone-acetaminophen 5-325 mg Tablet 1 tab PO Q4H PRN (Reason: Moderate Pain) Qty: 30 RF: 0 Lovenox 40 mg/0.4 mL Syringe 40 mg SUBCUT Q24H Qty: 10 RF: 0 Continued citalopram [Celexa] 10 mg Tablet 10 mg PO DAILY RF: 0 alendronate 70 mg Tablet 70 mg PO Q7D RF: 0 aripiprazole [Abilify] 5 mg Tablet 5 mg PO BEDTIME RF: 0 Trelegy Ellipta 100-62.5-25 mcg Blister With Device 1 inh INHALATION DAILY RF: 0 ChlorTabs 4 mg Tablet 4 mg PO DAILY PRN (Reason: Allergic Symptoms) RF: 0 albuterol sulfate 2.5 mg /3 mL (0.083 %) solution for nebulization See Rx Instructions .ROUTE .COMPLEX RF: 0 Ventolin HFA 90 mcg/actuation Hfa Aerosol Inhaler 2 puff INHALATION QID PRN (Reason: Shortness Of Breath) RF: 0 tramadol 50 mg tablet See Rx Instructions .ROUTE .COMPLEX PRN (Reason: pain) RF: 0 Discharge Orders: Discharge Order (Routine); Ordered 05/01/19 Ordered By: Zachery Spaulding Referrals: [facility] [Outside] Nakita Rob MD [Family Provider] - 4-7 days Zachery Spaulding MD [Physician] - 1 month Discharge Activity: As per PT/OT instructions Patient Instructions: Hydrocodone/Acetaminophen (By mouth), Enoxaparin (Injection), Fractures, Fall Prevention Activity Restrictions/Additional Instructions: Please continue nighttime oxygen as at home. May shower once incisions completely free of drainage. Discontinue right hip dressing in 24-48 hours. Replaced dressings as needed. REMOVE VÍCTOR RIGHT HIP 05/12/19 Take Celebrex twice a day for the next 15 days for pain , discontinue other anti-inflammatories take hydrocodone for breakthrough pain. Exercises per physical therapy. 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
== END 2019-05-01 15:30 | disposition skilled nursing facility (03) | DRG 470 ==
LOC: ER 12:19 → MEDSURG 13:41
PROVIDERS: Family Medicine; Orthopaedic Surgery; Admitting Provider Family Medicine; Emergency Provider Physician Assistant; Family Provider Family Medicine; Visit Provider Internal Medicine
PROC: 0SRR0JA Replacement of Right Hip Joint, Femoral Surface with Synthetic Substitute, Uncemented, Open Approach (ICD-10-PCS; CPT 27125; principal; 2019-04-28 11:45)
DX: S72.011A Unspecified intracapsular fracture of right femur, initial encounter for closed fracture (principal); W01.0XXA Fall on same level from slipping, tripping and stumbling without subsequent striking against object, initial encounter; F32.9 Major depressive disorder, single episode, unspecified; Z68.38 Body mass index [BMI] 38.0-38.9, adult; F41.9 Anxiety disorder, unspecified; E66.01 Morbid (severe) obesity due to excess calories; Z87.891 Personal history of nicotine dependence; M81.0 Age-related osteoporosis without current pathological fracture; J43.9 Emphysema, unspecified
CPT/HCPCS: 12345; 36415; 51702; 71045; 72192; 73502; 73552; 73560; 73562; 80048; 80053; 81003; 85025; 93005; 94640; 96372; 96374; 96375; 97110; 97161; 97166; 97530; 97535; 99282; C1713; C1776; J1100; J1580; J1650; J2001; J2270; J2405; J2704; J2710; J3010; J3490; J7030; J7512

== ENCOUNTER 2019-05-09 04:37 | Inpatient (IN) | payer MEDICARE, MEDICAID, SELFPAY ==
[2019-05-09] VITALS (20 sets, daily range): BP systolic 102–175; BP diastolic 59–129; PULSE 71–97; RESP 16–26; TEMP 36.6–37.3; O2SAT 91–97; BMI 36.6
--- NOTE | 2019-05-09 04:41 | XRR_ITS ---
PROCEDURE INFORMATION: Exam: XR Chest, 1 View Exam date and time: 05/09/2019 5:11 AM Age: 69 years old Clinical indication: Cough; Additional info: Cough, shortness of breath, lt sided chest pain for a few days TECHNIQUE: Imaging protocol: XR of the chest Views: 1 view. COMPARISON: CR XR chest 1V portable [id number] 04/27/2019 11:53 AM FINDINGS: Lungs: Emphysematous change. Asymmetric interstitial and right basilar airspace disease, which was not present on the prior study. Pleural space: No significant pleural effusion. Heart/Mediastinum: Cardiomegaly. Vasculature: Calcification of the thoracic aorta. Bones/joints: Osteopenia, degenerative change, cervical spine fusion. XR/XR chest 1V portable [id number] IMPRESSION: Asymmetric interstitial and right basilar airspace disease, which was not present on prior study.
--- NOTE | 2019-05-09 04:43 | ECG_ITS ---
Measurements Intervals [place] Rate: 92 P: 24 PA: 135 QRS: 39 QRSD: 98 T: 45 QT: 336 QTc: 416 SINUS RHYTHM WITH SINUS ARRHYTHMIA Compared to ECG 04/27/2019 11:55:01 No significant changes Electronically Signed On 05-09-2019 15:33:41 FOUR H CLUB AGENT by Homero Marshall M.D. [email or web address]
--- NOTE | 2019-05-09 05:00 | W.ED.SOB ---
Documented by User: Adrianna Tsang 05/09/19 05:13 HPI - SOB/Dyspnea General: Chief Complaint: Shortness of Breath/Dyspnea Stated Complaint: RESP DISTRESS/ LEFT RIB PAIN Time Seen by Provider: 05/09/19 04:38 Source: EMS Mode of arrival: EMS Limitations: no limitations History of Present Illness: HPI Narrative: Kimberly is a very nice 69-year-old female who comes in complaining of shortness of breath, wheezing and pleuritic left-sided chest pain. Patient states that she awoke from sleep with this. She is been coughing and feels like she may have had a fever. She has sharp pleuritic chest pain that is intermittent in nature. She states it hurts more to move and take a deep breath. She is currently at a skilled nursing for rehab from having hip surgery. Associated symptoms: Reports chest congestion; Deny abdominal pain, chest pain, diaphoresis, dizziness, extremity pain, fever(s), hemoptysis, nausea, orthopnea, palpitations, polydipsia, syncope or vomiting Review of Systems General: Reports: other (negative unless marked) Const: Denies: fever, chills, body aches, fatigue, malaise or diaphoresis Eyes: Denies: change in vision or blurry vision ENMT: Denies: throat pain, painful swallowing, hoarseness, ear pain, ear discharge, Change in hearing or nasal discharge Card: Denies: chest pain, palpitations, irregular heart rhythm, syncope, pre-syncope, shortness of breath on exertion or shortness of breath when lying down Resp: Reports: shortness of breath, productive cough, wheezing, pain on inspiration and chest congestion; Denies: coughing up blood GI: Denies: abdominal pain, nausea, vomiting, vomiting blood, coffee grounds in vomit, diarrhea, constipation, cramping, blood in stool or black tarry stool : Denies: flank pain, painful urination, urinary frequency, urinary urgency, decreased urine ouput, urinary incontinence or blood in urine Musc: Denies: neck pain, back pain, extremity pain, extremity swelling, joint pain, joint swelling, joint warmth or joint stiffness Skin/Breast: Denies: rash, skin tenderness or yellow skin Neuro: Denies: headache, numbness in extremities, weakness in extremities, changes in sensation, lack of coordination, difficulty walking, dizziness, vertigo or confusion Endo: Denies: excessive thirst, tired all the time, cold intolerance, excessive sweating, flushing or hot flashes Jeremiah/Lymph: Denies: easy bruising, easy bleeding, petechiae or enlarged lymph nodes All/Imm: Denies: hives, throat swelling, tongue swelling, facial swelling or acute wheezing PFSH ED PFSH: Statuses (acute, chronic, etc) shown below reflect problem list status as previously entered and may not be historically accurate Medical History Cervical vertebral fusion (Acute) Condyloma acuminata (Acute) s/p excision in 11/2017 COPD (chronic obstructive pulmonary disease) (Acute) Depression (Resolved) Osteoporosis (Acute) takes Aledronate 70 mg once weekly Surgical History H/O shoulder surgery (Acute) left shoulder surgery History of cervical spinal surgery (Acute) History of surgery on right wrist (Acute) History of total right hip arthroplasty (Acute) Family History Father Alcoholic cirrhosis of liver Mother CAD (coronary artery disease) Cerebral hemorrhage Social History Smoking and tobacco status: former smoker Quit status (tobacco): has quit using tobacco Year quit tobacco: quit 2-3 yrs ago Alcohol intake: never Household members: spouse Housing: House Physical Exam Const: COMMON NORMALS: no apparent distress, oriented x3, no limitations, healthy appearing and well nourished EXAM LIMITATIONS: no altered mental status GENERAL APPEARANCE: cooperative, well kempt and well developed ORIENTATION/CONSCIOUSNESS: Yes awake HENMT: COMMON NORMALS: normocephalic, head/scalp atraumatic, hearing grossly normal bilaterally, external ears normal, EAC's normal, external nose normal and moist oral mucous membranes HEAD & SCALP: normal to inspection, normocephalic and atraumatic FACE & SINUS: normal facial exam and face symmetric NOSE: external nose normal and nares normal EXTERNAL EAR: Yes external ears normal EXTERNAL AUDITORY CANAL: EAC's normal MOUTH: oral and palatal mucosa normal and tongue normal Eye: COMMON NORMALS: PERRL, EOMs intact bilaterally, conjunctivae normal and no scleral icterus GENERAL EYE: normal appearance of both eyes and normal light reflex CONJUNCTIVA: Yes conjunctivae normal SCLERA: sclerae normal CORNEA: Yes corneas normal PUPIL: Yes PERRL DIRECT OPHTHALMOSCOPY: Yes normal light reflex Neck/C-Spine: COMMON NORMALS: full ROM, no lymphadenopathy, supple, no meningeal signs and no JVD GENERAL: Yes normal visual inspection and Yes trachea midline CERVICAL SPINE: Yes cervical ROM normal Chest: COMMONS NORMALS: inspection of chest normal and palpation of chest normal Resp: EFFORT & INSPECTION: Yes tachypneic, Yes respiratory distress, Yes labored, Yes actively coughing and Yes audible wheezes AUSCULTATION: rhonchi, wheezes and diminished lung sounds Cardio: COMMON NORMALS: no JVD, regular rate, regular rhythm, S1 normal heart sound, S2 normal heart sound, no gallops, no clicks, no murmurs and no rub JUGULAR VENOUS DISTENTION: no JVD RATE: regular rate RHYTHM: regular rhythm HEART SOUNDS: S1 normal and S2 normal GI: COMMON NORMALS: soft to palpation, non-tender, no hepatosplenomegaly and no masses INSPECTION: Yes normal to inspection PALPATION: Yes soft and Yes no hepatosplenomegaly : COMMON NORMALS: Yes no CVA tenderness BLADDER/KIDNEY EXAM: Yes no CVA tenderness Back/Pelvis: COMMON NORMALS: no CVA tenderness, thoracic and lumbar spine normal to inspection, no thoracic nor lumbar tenderness and thoraco-lumbar ROM normal Extremity: COMMON NORMALS: normal to inspection, full ROM, normal capillary refill, no joint enlargement, no clubbing, cyanosis or edema and no calf tenderness Neuro: COMMON NORMALS: oriented x3, CN's II-XII intact bilaterally, moves all extremities, no focal motor deficits and no sensory deficits noted MENINGEAL SIGNS: Yes no meningeal signs Psych: COMMON NORMALS: mental status grossly normal, thought process normal, cooperative, affect normal, speech normal and activity/motor behavior normal APPEARANCE: Yes well kempt SPEECH: Yes normal speech THOUGHT PROCESS: normal thought process Skin: COMMON NORMALS: no rashes or lesions noted, skin turgor normal, no jaundice, no petechiae and no mottling GENERAL SKIN EXAM: no rashes or lesions noted and turgor normal Course Vital Signs: Vital signs: Vital Signs Temperature 98.6 F 05/10/19 07:18 Pulse Rate 73 05/10/19 08:06 Respiratory Rate 20 H 05/10/19 08:06 Blood Pressure 118/56 05/10/19 07:18 Pulse Oximetry 98 05/10/19 08:06 MDM - SOB/Dyspnea Lab Data: Attestation: I reviewed the patient's lab results. Labs: Lab Results 05/09/19 05/09/19 05/09/19 Range/Units 04:50 04:50 04:50 WBC 13.4 H (4.0-10.0) 10^3/ uL RBC 4.23 (4.1-5.3) 10^6/u L Hgb 11.8 (11.5-15.3) g/dL Hct 37.7 (37.0-47.0) % MCV 89.1 (81-99) fL MCH 27.9 L (28.0-34.0) pg MCHC 31.3 (30.0-36.0) g/dL RDW 13.2 (12.1-15.1) % Plt Count 349 (130-400) 10^3/c mm MPV 9.6 (7.4-10.4) fL Neut % (Auto) 90.6 % Lymph % (Auto) 3.1 % [place] % (Auto) 5.4 % Eos % (Auto) 0.2 % Baso % (Auto) 0.3 % Neut # (Auto) 12.2 H (1.8-7.7) 10^3/u L Lymph # (Auto) 0.4 L (0.8-4.8) 10^3/u L [place] # (Auto) 0.7 (0.2-0.9) 10^3/u L Eos # (Auto) 0.0 (0.0-0.8) 10^3/u L Baso # (Auto) 0.0 (0.0-0.1) 10^3/u L Nucleated RBC % (a uto) 0 % Nucleated RBCs # 0.0 /100WBC PT 14.70 H (10.5-13.3) SECO NDS INR 1.12 (0.8-1.2) D-Dimer (0-0.59) ug/mIFE U Specimen Type Sample Site ABG pH (7.35-7.45) ABG pCO2 (35-45) mmHg ABG pO2 (80.0-100.0) mmH g ABG HCO3 (22-26) mmol/L ABG Base Excess (-2.0-2.0) mmol/ L Rodrigo Test Hematocrit (37-47) % O2 Delivery Device O2 Liters/Min % Customer Care Manager ID Sodium 137 (136-145) mmol/L Potassium 3.9 (3.5-5.1) mmol/L Chloride 98 (98-107) mmol/L Carbon Dioxide 27 (22-29) mmol/L Anion Gap 15.9 (5-19) BUN 12 (8-23) mg/dL Creatinine 0.7 (0.5-0.9) mg/dL Glucose 159 H (74-106) mg/dL Lactic Acid (0.5-2.2) mmol/L Calcium 9.2 (8.5-10.5) mg/dL Magnesium 2.3 (1.7-2.3) mg/dL Total Bilirubin 0.5 (0.15-1.2) mg/dL AST 11 (0-32) U/L ALT 14 (0-33) U/L Alkaline Phosphata se 98 (35-105) IU/L Troponin I 6 Hour (0-10) ng/L Troponin I Hi Sens Del (0-12) ng/L Troponin T Baselin e (0-10) ng/mL Troponin T 120 Min [place] (0-10) ng/mL Delta Troponin T (0-10) ABS# NT-Pro-B Natriuret Pep 1243 H (0-125) pg/mL Total Protein 6.9 (6.6-8.7) g/dL Albumin 3.4 L (3.5-5.2) g/dL Globulin 3.5 (1.3-4.6) g/dL Influenza Type A A g (Negative) POC Influenza B Ag (Negative) 05/09/19 05/09/19 05/09/19 Range/Units 04:50 04:50 04:50 WBC (4.0-10.0) 10^3/ uL RBC (4.1-5.3) 10^6/u L Hgb (11.5-15.3) g/dL Hct (37.0-47.0) % MCV (81-99) fL MCH (28.0-34.0) pg MCHC (30.0-36.0) g/dL RDW (12.1-15.1) % Plt Count (130-400) 10^3/c mm MPV (7.4-10.4) fL Neut % (Auto) % Lymph % (Auto) % [place] % (Auto) % Eos % (Auto) % Baso % (Auto) % Neut # (Auto) (1.8-7.7) 10^3/u L Lymph # (Auto) (0.8-4.8) 10^3/u L [place] # (Auto) (0.2-0.9) 10^3/u L Eos # (Auto) (0.0-0.8) 10^3/u L Baso # (Auto) (0.0-0.1) 10^3/u L Nucleated RBC % (a uto) % Nucleated RBCs # /100WBC PT (10.5-13.3) SECO NDS INR (0.8-1.2) D-Dimer 3.26 H (0-0.59) ug/mIFE U Specimen Type Sample Site ABG pH (7.35-7.45) ABG pCO2 (35-45) mmHg ABG pO2 (80.0-100.0) mmH g ABG HCO3 (22-26) mmol/L ABG Base Excess (-2.0-2.0) mmol/ L Rodrigo Test Hematocrit (37-47) % O2 Delivery Device O2 Liters/Min % Customer Care Manager ID Sodium (136-145) mmol/L Potassium (3.5-5.1) mmol/L Chloride (98-107) mmol/L Carbon Dioxide (22-29) mmol/L Anion Gap (5-19) BUN (8-23) mg/dL Creatinine (0.5-0.9) mg/dL Glucose (74-106) mg/dL Lactic Acid 0.8 (0.5-2.2) mmol/L Calcium (8.5-10.5) mg/dL Magnesium (1.7-2.3) mg/dL Total Bilirubin (0.15-1.2) mg/dL AST (0-32) U/L ALT (0-33) U/L Alkaline Phosphata se (35-105) IU/L Troponin I 6 Hour (0-10) ng/L Troponin I Hi Sens Del (0-12) ng/L Troponin T Baselin e 33 H (0-10) ng/mL Troponin T 120 Min [place] (0-10) ng/mL Delta Troponin T (0-10) ABS# NT-Pro-B Natriuret Pep (0-125) pg/mL Total Protein (6.6-8.7) g/dL Albumin (3.5-5.2) g/dL Globulin (1.3-4.6) g/dL Influenza Type A A g (Negative) POC Influenza B Ag (Negative) 05/09/19 05/09/19 05/09/19 Range/Units 05:36 05:39 06:05 WBC (4.0-10.0) 10^3/ uL RBC (4.1-5.3) 10^6/u L Hgb (11.5-15.3) g/dL Hct (37.0-47.0) % MCV (81-99) fL MCH (28.0-34.0) pg MCHC (30.0-36.0) g/dL RDW (12.1-15.1) % Plt Count (130-400) 10^3/c mm MPV (7.4-10.4) fL Neut % (Auto) % Lymph % (Auto) % [place] % (Auto) % Eos % (Auto) % Baso % (Auto) % Neut # (Auto) (1.8-7.7) 10^3/u L Lymph # (Auto) (0.8-4.8) 10^3/u L [place] # (Auto) (0.2-0.9) 10^3/u L Eos # (Auto) (0.0-0.8) 10^3/u L Baso # (Auto) (0.0-0.1) 10^3/u L Nucleated RBC % (a uto) % Nucleated RBCs # /100WBC PT (10.5-13.3) SECO NDS INR (0.8-1.2) D-Dimer (0-0.59) ug/mIFE U Specimen Type Arterial Sample Site Radial, left ABG pH 7.34 L (7.35-7.45) ABG pCO2 56.3 H (35-45) mmHg ABG pO2 69.9 L (80.0-100.0) mmH g ABG HCO3 30.1 H (22-26) mmol/L ABG Base Excess 3.1 H (-2.0-2.0) mmol/ L Rodrigo Test Pos Hematocrit 35.2 L (37-47) % O2 Delivery Device Nc O2 Liters/Min 6.0 % Customer Care Manager ID harkr Sodium (136-145) mmol/L Potassium (3.5-5.1) mmol/L Chloride (98-107) mmol/L Carbon Dioxide (22-29) mmol/L Anion Gap (5-19) BUN (8-23) mg/dL Creatinine (0.5-0.9) mg/dL Glucose (74-106) mg/dL Lactic Acid (0.5-2.2) mmol/L Calcium (8.5-10.5) mg/dL Magnesium (1.7-2.3) mg/dL Total Bilirubin (0.15-1.2) mg/dL AST (0-32) U/L ALT (0-33) U/L Alkaline Phosphata se (35-105) IU/L Troponin I 6 Hour (0-10) ng/L Troponin I Hi Sens Del (0-12) ng/L Troponin T Baselin e (0-10) ng/mL Troponin T 120 Min [place] 33.03 H (0-10) ng/mL Delta Troponin T 0.03 (0-10) ABS# NT-Pro-B Natriuret Pep (0-125) pg/mL Total Protein (6.6-8.7) g/dL Albumin (3.5-5.2) g/dL Globulin (1.3-4.6) g/dL Influenza Type A A g Negative (Negative) POC Influenza B Ag Negative (Negative) 05/09/19 Range/Units 10:48 WBC (4.0-10.0) 10^3/ uL RBC (4.1-5.3) 10^6/u L Hgb (11.5-15.3) g/dL Hct (37.0-47.0) % MCV (81-99) fL MCH (28.0-34.0) pg MCHC (30.0-36.0) g/dL RDW (12.1-15.1) % Plt Count (130-400) 10^3/c mm MPV (7.4-10.4) fL Neut % (Auto) % Lymph % (Auto) % [place] % (Auto) % Eos % (Auto) % Baso % (Auto) % Neut # (Auto) (1.8-7.7) 10^3/u L Lymph # (Auto) (0.8-4.8) 10^3/u L [place] # (Auto) (0.2-0.9) 10^3/u L Eos # (Auto) (0.0-0.8) 10^3/u L Baso # (Auto) (0.0-0.1) 10^3/u L Nucleated RBC % (a uto) % Nucleated RBCs # /100WBC PT (10.5-13.3) SECO NDS INR (0.8-1.2) D-Dimer (0-0.59) ug/mIFE U Specimen Type Sample Site ABG pH (7.35-7.45) ABG pCO2 (35-45) mmHg ABG pO2 (80.0-100.0) mmH g ABG HCO3 (22-26) mmol/L ABG Base Excess (-2.0-2.0) mmol/ L Rodrigo Test Hematocrit (37-47) % O2 Delivery Device O2 Liters/Min % Customer Care Manager ID Sodium (136-145) mmol/L Potassium (3.5-5.1) mmol/L Chloride (98-107) mmol/L Carbon Dioxide (22-29) mmol/L Anion Gap (5-19) BUN (8-23) mg/dL Creatinine (0.5-0.9) mg/dL Glucose (74-106) mg/dL Lactic Acid (0.5-2.2) mmol/L Calcium (8.5-10.5) mg/dL Magnesium (1.7-2.3) mg/dL Total Bilirubin (0.15-1.2) mg/dL AST (0-32) U/L ALT (0-33) U/L Alkaline Phosphata se (35-105) IU/L Troponin I 6 Hour 23.69 H (0-10) ng/L Troponin I Hi Sens Del -9.31 L (0-12) ng/L Troponin T Baselin e (0-10) ng/mL Troponin T 120 Min [place] (0-10) ng/mL Delta Troponin T (0-10) ABS# NT-Pro-B Natriuret Pep (0-125) pg/mL Total Protein (6.6-8.7) g/dL Albumin (3.5-5.2) g/dL Globulin (1.3-4.6) g/dL Influenza Type A A g (Negative) POC Influenza B Ag (Negative) Imaging Data^: CXR: My impression: Bibasilar infiltrates right greater than left without cardiomegaly. Possible cephalization of vessels. No pneumothorax. EKG Data^: EKG 1: Attestation: I personally reviewed and interpreted this EKG as follows: EKG Interpretation Date: 05/09/19 EKG interpretation time: 04:47 Interpretation: Normal sinus rhythm at 92 beats a minute, normal DC interval, normal QRS interval, normal QTc interval, normal axis, artifact present, nonspecific ST-T wave changes. Discharge Plan Discharge Patient Disposition: Admitted As Inpatient Admit Provider: Beena Gonzalez Clinical Impression: COPD (chronic obstructive pulmonary disease), Pulmonary embolism, Pneumonia, Congestive heart failure, Chest pain, H/O total hip arthroplasty Condition: Stable Interventions: ED Discharge Assessment Last Done: 05/09/19 11:49 Discharge Date/Time: 05/09/19 11:58 Sign Out Sign Out Data: Patient Sign Out occurred on 05/09/19 at 06:36. Patient's care was discussed, and care was transferred from to Constantino Soares DO. Coding Level of Care Code ED Infection Preventionist for Chg Fwd Exam Problem Focused Documented by User: Constantino Soares DO 05/10/19 08:18 HPI - SOB/Dyspnea General: Chief Complaint: Shortness of Breath/Dyspnea Stated Complaint: RESP DISTRESS/ LEFT RIB PAIN Time Seen by Provider: 05/09/19 04:38 PFSH ED PFSH: Statuses (acute, chronic, etc) shown below reflect problem list status as previously entered and may not be historically accurate Medical History Cervical vertebral fusion (Acute) Condyloma acuminata (Acute) s/p excision in 11/2017 COPD (chronic obstructive pulmonary disease) (Acute) Depression (Resolved) Osteoporosis (Acute) takes Aledronate 70 mg once weekly Surgical History H/O shoulder surgery (Acute) left shoulder surgery History of cervical spinal surgery (Acute) History of surgery on right wrist (Acute) History of total right hip arthroplasty (Acute) Family History Father Alcoholic cirrhosis of liver Mother CAD (coronary artery disease) Cerebral hemorrhage Social History Smoking and tobacco status: former smoker Quit status (tobacco): has quit using tobacco Year quit tobacco: quit 2-3 yrs ago Alcohol intake: never Household members: spouse Housing: House Physical Exam HENMT: COMMON NORMALS: normocephalic, head/scalp atraumatic, external ears normal, EAC's normal, external nose normal, nasal mucous membranes and turbinates normal, moist oral mucous membranes and oropharynx normal HEAD & SCALP: normocephalic and atraumatic NOSE: external nose normal and nasal mucous membranes and turbinates normal EXTERNAL EAR: Yes external ears normal EXTERNAL AUDITORY CANAL: EAC's normal Resp: EFFORT & INSPECTION: Yes uses accessory muscles AUSCULTATION: rhonchi throughout and wheezes throughout Cardio: COMMON NORMALS: regular rate and regular rhythm RATE: regular rate RHYTHM: regular rhythm Course Vital Signs: Vital signs: Vital Signs Temperature 98.6 F 05/10/19 07:18 Pulse Rate 73 05/10/19 08:06 Respiratory Rate 20 H 05/10/19 08:06 Blood Pressure 118/56 05/10/19 07:18 Pulse Oximetry 98 05/10/19 08:06 MDM - SOB/Dyspnea Lab Data: Labs: Lab Results 05/09/19 05/09/19 05/09/19 Range/Units 04:50 04:50 04:50 WBC 13.4 H (4.0-10.0) 10^3/ uL RBC 4.23 (4.1-5.3) 10^6/u L Hgb 11.8 (11.5-15.3) g/dL Hct 37.7 (37.0-47.0) % MCV 89.1 (81-99) fL MCH 27.9 L (28.0-34.0) pg MCHC 31.3 (30.0-36.0) g/dL RDW 13.2 (12.1-15.1) % Plt Count 349 (130-400) 10^3/c mm MPV 9.6 (7.4-10.4) fL Neut % (Auto) 90.6 % Lymph % (Auto) 3.1 % [place] % (Auto) 5.4 % Eos % (Auto) 0.2 % Baso % (Auto) 0.3 % Neut # (Auto) 12.2 H (1.8-7.7) 10^3/u L Lymph # (Auto) 0.4 L (0.8-4.8) 10^3/u L [place] # (Auto) 0.7 (0.2-0.9) 10^3/u L Eos # (Auto) 0.0 (0.0-0.8) 10^3/u L Baso # (Auto) 0.0 (0.0-0.1) 10^3/u L Nucleated RBC % (a uto) 0 % Nucleated RBCs # 0.0 /100WBC PT 14.70 H (10.5-13.3) SECO NDS INR 1.12 (0.8-1.2) D-Dimer (0-0.59) ug/mIFE U Specimen Type Sample Site ABG pH (7.35-7.45) ABG pCO2 (35-45) mmHg ABG pO2 (80.0-100.0) mmH g ABG HCO3 (22-26) mmol/L ABG Base Excess (-2.0-2.0) mmol/ L Rodrigo Test Hematocrit (37-47) % O2 Delivery Device O2 Liters/Min % Customer Care Manager ID Sodium 137 (136-145) mmol/L Potassium 3.9 (3.5-5.1) mmol/L Chloride 98 (98-107) mmol/L Carbon Dioxide 27 (22-29) mmol/L Anion Gap 15.9 (5-19) BUN 12 (8-23) mg/dL Creatinine 0.7 (0.5-0.9) mg/dL Glucose 159 H (74-106) mg/dL Lactic Acid (0.5-2.2) mmol/L Calcium 9.2 (8.5-10.5) mg/dL Magnesium 2.3 (1.7-2.3) mg/dL Total Bilirubin 0.5 (0.15-1.2) mg/dL AST 11 (0-32) U/L ALT 14 (0-33) U/L Alkaline Phosphata se 98 (35-105) IU/L Troponin I 6 Hour (0-10) ng/L Troponin I Hi Sens Del (0-12) ng/L Troponin T Baselin e (0-10) ng/mL Troponin T 120 Min [place] (0-10) ng/mL Delta Troponin T (0-10) ABS# NT-Pro-B Natriuret Pep 1243 H (0-125) pg/mL Total Protein 6.9 (6.6-8.7) g/dL Albumin 3.4 L (3.5-5.2) g/dL Globulin 3.5 (1.3-4.6) g/dL Influenza Type A A g (Negative) POC Influenza B Ag (Negative) 05/09/19 05/09/19 05/09/19 Range/Units 04:50 04:50 04:50 WBC (4.0-10.0) 10^3/ uL RBC (4.1-5.3) 10^6/u L Hgb (11.5-15.3) g/dL Hct (37.0-47.0) % MCV (81-99) fL MCH (28.0-34.0) pg MCHC (30.0-36.0) g/dL RDW (12.1-15.1) % Plt Count (130-400) 10^3/c mm MPV (7.4-10.4) fL Neut % (Auto) % Lymph % (Auto) % [place] % (Auto) % Eos % (Auto) % Baso % (Auto) % Neut # (Auto) (1.8-7.7) 10^3/u L Lymph # (Auto) (0.8-4.8) 10^3/u L [place] # (Auto) (0.2-0.9) 10^3/u L Eos # (Auto) (0.0-0.8) 10^3/u L Baso # (Auto) (0.0-0.1) 10^3/u L Nucleated RBC % (a uto) % Nucleated RBCs # /100WBC PT (10.5-13.3) SECO NDS INR (0.8-1.2) D-Dimer 3.26 H (0-0.59) ug/mIFE U Specimen Type Sample Site ABG pH (7.35-7.45) ABG pCO2 (35-45) mmHg ABG pO2 (80.0-100.0) mmH g ABG HCO3 (22-26) mmol/L ABG Base Excess (-2.0-2.0) mmol/ L Rodrigo Test Hematocrit (37-47) % O2 Delivery Device O2 Liters/Min % Customer Care Manager ID Sodium (136-145) mmol/L Potassium (3.5-5.1) mmol/L Chloride (98-107) mmol/L Carbon Dioxide (22-29) mmol/L Anion Gap (5-19) BUN (8-23) mg/dL Creatinine (0.5-0.9) mg/dL Glucose (74-106) mg/dL Lactic Acid 0.8 (0.5-2.2) mmol/L Calcium (8.5-10.5) mg/dL Magnesium (1.7-2.3) mg/dL Total Bilirubin (0.15-1.2) mg/dL AST (0-32) U/L ALT (0-33) U/L Alkaline Phosphata se (35-105) IU/L Troponin I 6 Hour (0-10) ng/L Troponin I Hi Sens Del (0-12) ng/L Troponin T Baselin e 33 H (0-10) ng/mL Troponin T 120 Min [place] (0-10) ng/mL Delta Troponin T (0-10) ABS# NT-Pro-B Natriuret Pep (0-125) pg/mL Total Protein (6.6-8.7) g/dL Albumin (3.5-5.2) g/dL Globulin (1.3-4.6) g/dL Influenza Type A A g (Negative) POC Influenza B Ag (Negative) 05/09/19 05/09/19 05/09/19 Range/Units 05:36 05:39 06:05 WBC (4.0-10.0) 10^3/ uL RBC (4.1-5.3) 10^6/u L Hgb (11.5-15.3) g/dL Hct (37.0-47.0) % MCV (81-99) fL MCH (28.0-34.0) pg MCHC (30.0-36.0) g/dL RDW (12.1-15.1) % Plt Count (130-400) 10^3/c mm MPV (7.4-10.4) fL Neut % (Auto) % Lymph % (Auto) % [place] % (Auto) % Eos % (Auto) % Baso % (Auto) % Neut # (Auto) (1.8-7.7) 10^3/u L Lymph # (Auto) (0.8-4.8) 10^3/u L [place] # (Auto) (0.2-0.9) 10^3/u L Eos # (Auto) (0.0-0.8) 10^3/u L Baso # (Auto) (0.0-0.1) 10^3/u L Nucleated RBC % (a uto) % Nucleated RBCs # /100WBC PT (10.5-13.3) SECO NDS INR (0.8-1.2) D-Dimer (0-0.59) ug/mIFE U Specimen Type Arterial Sample Site Radial, left ABG pH 7.34 L (7.35-7.45) ABG pCO2 56.3 H (35-45) mmHg ABG pO2 69.9 L (80.0-100.0) mmH g ABG HCO3 30.1 H (22-26) mmol/L ABG Base Excess 3.1 H (-2.0-2.0) mmol/ L Rodrigo Test Pos Hematocrit 35.2 L (37-47) % O2 Delivery Device Nc O2 Liters/Min 6.0 % Customer Care Manager ID [email or web address] Sodium (136-145) mmol/L Potassium (3.5-5.1) mmol/L Chloride (98-107) mmol/L Carbon Dioxide (22-29) mmol/L Anion Gap (5-19) BUN (8-23) mg/dL Creatinine (0.5-0.9) mg/dL Glucose (74-106) mg/dL Lactic Acid (0.5-2.2) mmol/L Calcium (8.5-10.5) mg/dL Magnesium (1.7-2.3) mg/dL Total Bilirubin (0.15-1.2) mg/dL AST (0-32) U/L ALT (0-33) U/L Alkaline Phosphata se (35-105) IU/L Troponin I 6 Hour (0-10) ng/L Troponin I Hi Sens Del (0-12) ng/L Troponin T Baselin e (0-10) ng/mL Troponin T 120 Min [place] 33.03 H (0-10) ng/mL Delta Troponin T 0.03 (0-10) ABS# NT-Pro-B Natriuret Pep (0-125) pg/mL Total Protein (6.6-8.7) g/dL Albumin (3.5-5.2) g/dL Globulin (1.3-4.6) g/dL Influenza Type A A g Negative (Negative) POC Influenza B Ag Negative (Negative) 05/09/19 Range/Units 10:48 WBC (4.0-10.0) 10^3/ uL RBC (4.1-5.3) 10^6/u L Hgb (11.5-15.3) g/dL Hct (37.0-47.0) % MCV (81-99) fL MCH (28.0-34.0) pg MCHC (30.0-36.0) g/dL RDW (12.1-15.1) % Plt Count (130-400) 10^3/c mm MPV (7.4-10.4) fL Neut % (Auto) % Lymph % (Auto) % [place] % (Auto) % Eos % (Auto) % Baso % (Auto) % Neut # (Auto) (1.8-7.7) 10^3/u L Lymph # (Auto) (0.8-4.8) 10^3/u L [place] # (Auto) (0.2-0.9) 10^3/u L Eos # (Auto) (0.0-0.8) 10^3/u L Baso # (Auto) (0.0-0.1) 10^3/u L Nucleated RBC % (a uto) % Nucleated RBCs # /100WBC PT (10.5-13.3) SECO NDS INR (0.8-1.2) D-Dimer (0-0.59) ug/mIFE U Specimen Type Sample Site ABG pH (7.35-7.45) ABG pCO2 (35-45) mmHg ABG pO2 (80.0-100.0) mmH g ABG HCO3 (22-26) mmol/L ABG Base Excess (-2.0-2.0) mmol/ L Rodrigo Test Hematocrit (37-47) % O2 Delivery Device O2 Liters/Min % Customer Care Manager ID Sodium (136-145) mmol/L Potassium (3.5-5.1) mmol/L Chloride (98-107) mmol/L Carbon Dioxide (22-29) mmol/L Anion Gap (5-19) BUN (8-23) mg/dL Creatinine (0.5-0.9) mg/dL Glucose (74-106) mg/dL Lactic Acid (0.5-2.2) mmol/L Calcium (8.5-10.5) mg/dL Magnesium (1.7-2.3) mg/dL Total Bilirubin (0.15-1.2) mg/dL AST (0-32) U/L ALT (0-33) U/L Alkaline Phosphata se (35-105) IU/L Troponin I 6 Hour 23.69 H (0-10) ng/L Troponin I Hi Sens Del -9.31 L (0-12) ng/L Troponin T Baselin e (0-10) ng/mL Troponin T 120 Min [place] (0-10) ng/mL Delta Troponin T (0-10) ABS# NT-Pro-B Natriuret Pep (0-125) pg/mL Total Protein (6.6-8.7) g/dL Albumin (3.5-5.2) g/dL Globulin (1.3-4.6) g/dL Influenza Type A A g (Negative) POC Influenza B Ag (Negative) Discharge Plan Discharge Patient Disposition: Admitted As Inpatient Admit Provider: Beena Gonzalez Clinical Impression: COPD (chronic obstructive pulmonary disease), Pulmonary embolism, Pneumonia, Congestive heart failure, Chest pain, H/O total hip arthroplasty Condition: Stable Interventions: ED Discharge Assessment Last Done: 05/09/19 11:49 Discharge Date/Time: 05/09/19 11:58 Sign Out Sign Out Data: Patient Sign Out occurred on 05/09/19 at 06:36. Patient's care was discussed, and care was transferred from to Constantino Soares DO. Coding Level of Care Code ED Infection Preventionist for Dolly Andrew Exam Problem Focused
[2019-05-09 05:02] LABS: Basophils % 0.3 %; Eosinophils % 0.2 %; Hematocrit 37.7 % (37.0-47.0); Hemoglobin 11.8 g/dL (11.5-15.3); Lymphocytes # 0.4 10^3/uL (0.8-4.8); Lymphocytes % 3.1 %; Mean Corpuscular HGB Conc 31.3 g/dL (30.0-36.0); Mean Corpuscular Hemoglobin 27.9 pg (28.0-34.0); Mean Corpuscular Volume 89.1 fL (81-99); Mean Platelet Volume 9.6 fL (7.4-10.4); Monocytes # 0.7 10^3/uL (0.2-0.9); Monocytes % 5.4 %; Neutrophils # 12.2 10^3/uL (1.8-7.7); Neutrophils % 90.6 %; Nucleated Red Blood Cells % 0 %; Platelet Count 349 10^3/cmm (130-400); Red Blood Count 4.23 10^6/uL (4.1-5.3); Red Cell Distribution Width 13.2 % (12.1-15.1); White Blood Count 13.4 10^3/uL (4.0-10.0)
[2019-05-09 05:10] LABS: INR 1.12 (0.8-1.2)
[2019-05-09] MEDS: sodium chloride 0.9% 1,000 ML 100 ML IV (05:15)
[2019-05-09] MEDS: ondansetron 2 mg/ML SDV 2 mL 4 MG IVP (05:15)
[2019-05-09 05:17] LABS: Troponin(5th) Baseline 33 ng/mL (0-10)
[2019-05-09 05:19] LABS: Lactic Sepsis W/Reflex 0.8 mmol/L (0.5-2.2)
[2019-05-09] MEDS: doxycycline 100 MG in sodium chloride 0.9% (plus) 100 ML IV (05:20)
[2019-05-09 05:22] LABS: D Dimer 3.26 ug/mIFEU (0-0.59)
[2019-05-09 05:25] LABS: Alanine Aminotransferase 14 U/L (0-33); Albumin Level 3.4 g/dL (3.5-5.2); Alkaline Phosphatase 98 IU/L (35-105); Anion Gap 15.9 (5-19); Aspartate Amino Transferase 11 U/L (0-32); Blood Urea Nitrogen 12 mg/dL (8-23); Calcium 9.2 mg/dL (8.5-10.5); Carbon Dioxide 27 mmol/L (22-29); Chloride 98 mmol/L (98-107); Globulin 3.5 g/dL (1.3-4.6); Glucose 159 mg/dL (74-106); Magnesium 2.3 mg/dL (1.7-2.3); NT Pro B Type Natriuretic Pept 1243 pg/mL (0-125); Potassium 3.9 mmol/L (3.5-5.1); Sodium 137 mmol/L (136-145); Total Bilirubin 0.5 mg/dL (0.15-1.2); Total Protein 6.9 g/dL (6.6-8.7)
--- NOTE | 2019-05-09 05:25 | CTR_ITS ---
PROCEDURE INFORMATION: Exam: CT Angiography Chest With Contrast Exam date and time: 05/09/2019 5:28 AM Age: 69 years old Clinical indication: Prior surgery; Surgery type: Cervical fusion; Patient HX: Onset of chest pain with SOB and dyspnea. Hip surgery two weeks ago. ; Additional info: Dyspnea, recent surgery, positive d dimer TECHNIQUE: Imaging protocol: Computed tomographic angiography of the chest with intravenous contrast. 3D rendering: MIP and/or 3D reconstructed images were created by the technologist. Total DLP: 544.55 mGy-cm Radiation optimization: All CT scans at this facility use at least one of these dose optimization techniques: automated exposure control; mA and/or kV adjustment per patient size (includes targeted exams where dose is matched to clinical indication); or iterative reconstruction. Contrast material: OMNI 350; Contrast volume: 67 ml; Contrast route: 20G; COMPARISON: CR XR chest 1V portable [id number] 05/09/2019 5:00 AM FINDINGS: The examination performed is degraded by motion artifact. Pulmonary arteries: Subtle findings of distal pulmonary emboli in the right middle and lower lobes (series 2: Images 254 and 275), of uncertain age. Aorta: Calcification and atherosclerotic plaque in the thoracic aorta. Lungs: COPD, interstitial disease, and mild bronchial wall thickening. Asymmetric bibasilar airspace disease, right greater than left. Multiple subcentimeter nodules including 5 mm nodule in the superior segment of the right lower lobe (series 2: Image 181), 7 mm nodule in the posterior segment of the right upper lobe (series 2: Image 202), and subpleural 9 mm nodule in the lateral segment of the right lower lobe (series 2: Image 303). For patients at low risk (minimal or absent history of smoking and of other known risk factors), recommend CT at 3-6 months, then consider CT at 18-24 months. For patients at high risk (history of smoking or of other known risk factors), recommend CT at 3-6 months, then CT at 18-24 months. (Shellie et al., Fleischner Society, 2017). Pleural space: Trace pleural effusions. Heart: No cardiomegaly or a significant pericardial effusion. Upper abdomen: Fatty infiltration of the liver. Enlarged spleen measuring 12.3 cm in length. Questionable wall thickening in the nondistended stomach. Incompletely visualized 2.6 cm left renal cyst. Lymph nodes: Enlarged lymph nodes including 2.9 x 2.1 x 1.3 cm right hilar, 2.8 x 1.9 x 1.5 cm right perihilar, and 1.9 x 1.8 x 2.5 cm right paratracheal lymph nodes. Bones/joints: Degenerative change and chronic thoracic spine compression fractures. Soft tissues: Subcutaneous edema. CT/CT angio chest PE protcl [id number] IMPRESSION: 1. Subtle findings of distal pulmonary emboli in the right middle and lower lobes (series 2: Images 254 and 275), of uncertain age. 2. Enlarged lymph nodes including 2.9 x 2.1 x 1.3 cm right hilar, 2.8 x 1.9 x 1.5 cm right perihilar, and 1.9 x 1.8 x 2.5 cm right paratracheal lymph nodes. 3. Multiple subcentimeter nodules including 5 mm nodule in the superior segment of the right lower lobe (series 2: Image 181), 7 mm nodule in the posterior segment of the right upper lobe (series 2: Image 202), and subpleural 9 mm nodule in the lateral segment of the right lower lobe (series 2: Image 303). 4. Additional findings as described above. Addendum: These findings were conveyed to Dr. James at the time of interpretation (05/09/2019 7:28 AM CHECK GRADER). Radiation Dose CTDIVOL = (mGy): DLP = 544.55 (mGy-cm)
[2019-05-09 05:49] LABS: ABG PCO2 56.3 mmHg (35-45); ABG PH Result 7.34 (7.35-7.45); Arterial Blood Gas Hematocrit 35.2 % (37-47); Base Excess ABG 3.1 mmol/L (-2.0-2.0); Blood Gas Allen Test Pos; Blood Gas Sample Site Radial, left; Blood Gas Sample Type Arterial; HCO3 ABG 30.1 mmol/L (22-26); Oxygen Device NC; PO2 ABG 69.9 mmHg (80.0-100.0)
[2019-05-09 06:01] LABS: Influenza A by IFA Negative (Negative); Influenza B by IFA Negative (Negative)
[2019-05-09] MEDS: ipratropium-albuterol 3 mL Neb 9 ML INHALATION (06:03)
[2019-05-09] MEDS: cefepime 2,000 MG in sodium chloride 0.9% (plus) 50 ML 100 MG IV (06:20)
[2019-05-09] MEDS: FUROsemide 10 mg/mL SDV 4mL 40 MG IVP (06:25)
[2019-05-09] MEDS: nitroglycerin 1 gm/inch oint Pkt 1 INCH TOPICAL (06:32)
--- NOTE | 2019-05-09 06:43 | ECG_ITS ---
Measurements Intervals [place] Rate: 94 P: 70 HI: 158 QRS: 57 QRSD: 95 T: 56 QT: 338 QTc: 425 SINUS RHYTHM Compared to ECG 04/27/2019 11:55:01 No significant changes Electronically Signed On 05-09-2019 15:37:05 [employer] by Homero Marshall M.D. [id number]
[2019-05-09] MEDS: iohexol 350 mg/mL 100 mL Btl IV (06:55)
[2019-05-09 07:25] LABS: Troponin 5 2HR 33.03 ng/mL (0-10); Troponin 5 2HR Delta 0.03 ABS# (0-10)
--- NOTE | 2019-05-09 08:36 | PC.NURSE ---
Report received from Dre Schroeder RN
--- NOTE | 2019-05-09 10:43 | ECG_ITS ---
Measurements Intervals [place] Rate: 75 P: 71 AR: 148 QRS: 28 QRSD: 102 T: 39 QT: 373 QTc: 419 SINUS RHYTHM Compared to ECG 04/27/2019 11:55:01 No significant changes Electronically Signed On 05-09-2019 15:37:27 SYSTEMS SECURITY ANALYST by Homero Marshall M.D. [email or web address]
--- NOTE | 2019-05-09 11:06 | PM.HP ---
Providers/Chief Complaint Admitting Physician: Beena Gonzalez DO Primary Care Provider: Dr. Rob Chief Complaint: RESP DISTRESS/ LEFT RIB PAIN History of Present Illness Kimberly Mosquera is a 69 year old female that presented to the emergency department due to left-sided rib pain and shortness of breath. She stated that her pain started suddenly at 3 AM. She stated that she is suddenly started having left-sided chest pain that began while sleeping last night. She stated that she has been on oxygen for the past 1 day, typically only on oxygen at nighttime. She reported a fever last night, no known sick contacts. Patient reports increased swelling in the lower extremities bilaterally, this is been since her hip surgery. She reported ambulating with physical therapy well, pain is controlled. She denies any lightheadedness or dizziness, denies any abdominal pain or nausea. Patient reports chronic cough secondary to COPD with slight increase, no increased sputum production, no hemoptysis. Patient was seen and evaluated in the emergency department noted to have concern for pneumonia as well as pulmonary embolism and admitted to the hospital for further evaluation and treatment. Initially placed on BiPAP then transition to oxygen by nasal cannula. Review of Systems Const: Reports: fever; Denies: chills Eyes: Denies: change in vision ENMT: Denies: nasal congestion Card: Reports: chest pain and edema; Denies: palpitations Resp: Reports: shortness of breath; Denies: productive cough or coughing up blood GI: Denies: abdominal pain, nausea, vomiting, diarrhea, constipation, blood in stool or black tarry stool : Denies: painful urination or blood in urine Musc: Reports: extremity pain (Postoperative pain controlled in the right hip); Denies: muscle cramps Skin/Breast: Reports: surgical incision (Right hip); Denies: rash or new lesion Neuro: Denies: headache or dizziness Psych: Denies: anxiety or depression Endo: Denies: excessive urination or hot flashes Jeremiah/Lymph: Denies: easy bruising or easy bleeding Medications/Allergies Home Medications Medication Instructions Recorded Confirmed Last Taken Type fluticasone propion-salmeterol 1 inh INHALATION BID 05/09/19 05/09/19 Unknown History [Advair Diskus] Allergies Allergy/AdvReac Type Severity Reaction Status Date / Time Penicillins Allergy ALGY-Anaphy Verified 04/21/19 12:11 laxis PFSH Acute PFSH: Statuses (acute, chronic, etc) shown below reflect problem list status as previously entered and may not be historically accurate Medical History (Updated 05/09/19 @ 11:15 by Beena Gonzalez DO) Cervical vertebral fusion (Acute) Condyloma acuminata (Acute) s/p excision in 11/2017 COPD (chronic obstructive pulmonary disease) (Acute) Depression (Resolved) Osteoporosis (Acute) takes Aledronate 70 mg once weekly Surgical History (Updated 05/09/19 @ 11:15 by Beena Gonzalez DO) H/O shoulder surgery (Acute) left shoulder surgery History of cervical spinal surgery (Acute) History of surgery on right wrist (Acute) History of total right hip arthroplasty (Acute) Family History (Updated 05/09/19 @ 11:15 by Beena Gonzalez DO) Father Alcoholic cirrhosis of liver Mother CAD (coronary artery disease) Cerebral hemorrhage Social History Smoking and tobacco status: former smoker Quit status (tobacco): has quit using tobacco Year quit tobacco: quit 2-3 yrs ago Alcohol intake: never Household members: spouse Housing: House Vitals/I&O/Wt Last Vital Signs Temp 99.2 F 05/09/19 04:40 Pulse 79 05/09/19 10:30 Resp 18 05/09/19 10:30 BP 102/60 05/09/19 09:30 Pulse Ox 91 05/09/19 10:30 05/08/19 05/09/19 05/09/19 22:59 06:59 14:59 Intake Total 100 / 100 50 / 50 Balance 100 / 100 50 / 50 Weight last 48 hrs Weight 90.718 kg Physical Exam Const: COMMON NORMALS: oriented x3 and alert GENERAL APPEARANCE: cooperative ORIENTATION/CONSCIOUSNESS: Yes awake, Yes oriented to person, Yes oriented to place and Yes oriented to time HENMT: COMMON NORMALS: normocephalic and head/scalp atraumatic HEAD & SCALP: normocephalic and atraumatic Neck/C-Spine: COMMON NORMALS: supple GENERAL: Yes normal visual inspection Resp: EFFORT & INSPECTION: Yes able to speak in complete sentences and Yes actively coughing AUSCULTATION: crackles and rales Cardio: COMMON NORMALS: regular rate, regular rhythm and no murmurs RATE: regular rate RHYTHM: regular rhythm GI: COMMON NORMALS: soft to palpation and non-tender INSPECTION: No abdominal distension AUSCULTATION: Yes normoactive bowel sounds PALPATION: Yes soft Extremity: COMMON NORMALS: no calf tenderness OTHER: 2+ pitting edema in the lower extremities bilaterally Neuro: COMMON NORMALS: oriented x3, CN's II-XII intact bilaterally, moves all extremities and no focal motor deficits SENSORIUM/ORIENTATION: Yes alert, Yes oriented to person, Yes oriented to place and Yes oriented to time SPEECH: speech normal Psych: COMMON NORMALS: mental status grossly normal and cooperative Skin: NARRATIVE SKIN EXAM: Postoperative incision over the right hip with che in place, incision is clean and dry with no surrounding erythema Data : 05/09/19 04:50 05/09/19 04:50 Micro: Microbiology 05/09/19 05:10 Blood Culture - Preliminary Blood SPECIMEN COLLECTED 05/09/19 04:50 Blood Culture - Preliminary Blood SPECIMEN COLLECTED CTA Chest: Radiologist's impression: IMPRESSION: 1. Subtle findings of distal pulmonary emboli in the right middle and lower lobes (series 2: Images 254 and 275), of uncertain age. 2. Enlarged lymph nodes including 2.9 x 2.1 x 1.3 cm right hilar, 2.8 x 1.9 x 1.5 cm right perihilar, and 1.9 x 1.8 x 2.5 cm right paratracheal lymph nodes. 3. Multiple subcentimeter nodules including 5 mm nodule in the superior segment of the right lower lobe (series 2: Image 181), 7 mm nodule in the posterior segment of the right upper lobe (series 2: Image 202), and subpleural 9 mm nodule in the lateral segment of the right lower lobe (series 2: Image 303). 4. Additional findings as described above. CXR: Radiologist's impression: IMPRESSION: Asymmetric interstitial and right basilar airspace disease, which was not present on prior study. A&P Assessment and plan (1) COPD (chronic obstructive pulmonary disease): Status: Acute Qualifiers: COPD type: emphysema Emphysema type: unspecified Qualified Code(s): J43.9 - Emphysema, unspecified Code(s): J44.9 - Chronic obstructive pulmonary disease, unspecified (2) Pulmonary embolism: Subsegmental pulmonary embolism Treatment dose Lovenox every 12 hours Patient with a recent orthopedic surgery and had been on prophylactic Lovenox Uncertain of chronicity of pulmonary embolism Status: Acute Code(s): I26.99 - Other pulmonary embolism without acute cor pulmonale (3) Pneumonia: Will continue on antibiotics, Levaquin. Patient with recent hospitalization and recent orthopedic surgery Oxygen per protocol, respiratory therapy to assess and treat. Patient on 5 L of oxygen by nasal cannula, significantly increased from her baseline Status: Acute Code(s): J18.9 - Pneumonia, unspecified organism (4) Fluid overload: Patient appears to be fluid overloaded, no history of congestive heart failure, echocardiogram for further evaluation and treatment. Given IV Lasix x1, will monitor response to diuresis and consider further diuresis if indicated. Status: Acute Code(s): E87.70 - Fluid overload, unspecified (5) History of right hip hemiarthroplasty: Recent right hip hemiarthroplasty performed on 04/28/2019 after mechanical fall Status: Acute Code(s): Z96.641 - Presence of right artificial hip joint Additional A&P Information Hilar lymphadenopathy: Discussed this with patient and recommended continue close outpatient follow-up, will continue to treat with antibiotics and will need repeat imaging in the outpatient setting to determine further work-up Acute respiratory failure: Initially requiring BiPAP, now transitioned to 5 L of oxygen by nasal cannula, will continue to titrate and treat as noted above. Chest pain: Believed to be multifactorial related to pulmonary embolism, pneumonia and fluid overload, patient reports pain is improved, will continue to monitor on telemetry with serial EKG and troponin. DVT prophylaxis: On treatment dose Lovenox Diet: 2 g sodium restriction CODE STATUS: DNI/DNI, discussed with patient and she reported that she would not want to be resuscitated if something were to occur Attestations Medical Necessity Statement*: Patient requires hospitalization due to chest pain with acute respiratory failure and pulmonary embolism, pneumonia and fluid overload. 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
[2019-05-09] MEDS: enoxaparin 100 mg/mL Syringe 90 MG SUBCUT ×2 (11:09→21:50)
--- NOTE | 2019-05-09 11:12 | PC.NURSE ---
Oxygen titrated to 3.5LNC per Dr Gonzalez order. Oxygen sats 93-94% on 3.5LNC
[2019-05-09 11:17] LABS: Troponin 5 6HR 23.69 ng/L (0-10)
[2019-05-09 11:38] LABS: Troponin 5 6HR Delta -9.31 ng/L (0-12)
--- NOTE | 2019-05-09 11:47 | PC.NURSE ---
Urine was collected via clean catch with Dr Gonzalez notified.
--- NOTE | 2019-05-09 12:16 | USCV_ITS ---
Kimberly Mosquera Age: 69 Gender: F : 1950 Exam Date: 05/09/2019 12:39 Ordering Phys: Beena Gonzalez DO Technologist: Abdi Eason Exam Location: [facility] – [place] Indication: SYNCOPE, PALPITATIONS BP: 134 / 65 HR: 84 Rhythm: Sinus Technical Quality: Fair MEASUREMENTS (Male / Female) Normal Values 2D ECHO LV Diastolic Diameter PLAX 3.4 cm 4.2 - 5.9 / 3.9 - 5.3 cm LV Systolic Diameter PLAX 2.1 cm IVS Diastolic Thickness 0.7 cm 0.6 - 1.0 / 0.6 - 0.9 cm IVS Systolic Thickness 1.2 cm LVPW Diastolic Thickness 0.9 cm 0.6 - 1.0 / 0.6 - 0.9 cm LVPW Systolic Thickness 1.1 cm LVOT Diameter 1.5 cm LV Ejection Fraction 2D Teich 67.0 % LV Ejection Fraction MOD 2C 68.4 % LV Ejection Fraction 2C AL 68.4 % LA Diameter 2.6 cm LA Width 3.3 cm LA Height 3.7 cm RA Width 3.0 cm RA Height 4.0 cm Aorta at Sinotubular Diameter 2.1 cm DOPPLER AV Peak Velocity 142.0 cm/s LVOT Peak Velocity 90.0 cm/s AV Area Cont Eq vti 1.1 cm squared AV Area Cont Eq pk 1.1 cm squared MV Area PHT 5.0 cm squared Mitral E to A Ratio 0.8 MV E' Velocity 11.0 cm/s Mitral E to MV E' Ratio 8.0 Mitral E to LV E' Lateral Ratio 8.0 Mitral E to LV E' Septal Ratio 8.1 TR Peak Velocity 166.0 cm/s TR Peak Gradient 11.0 mmHg TV Peak E Velocity 98.0 cm/s Right Atrial Pressure 3.0 mmHg Pulmonary Artery Systolic Pressu 14.0 mmHg FINDINGS Left Ventricle Normal left ventricular cavity size. Normal left ventricular systolic function. No regional wall motion abnormalities. Left ventricular ejection fraction is estimated at 67 %. Grade I/IV diastolic dysfunction (abnormal relaxation filling pattern), normal to mildly elevated filling pressures. Right Ventricle The right ventricle is normal in size and function. Right Atrium The right atrium is normal in size. Left Atrium The left atrium is normal in size. Mitral Valve Structurally normal mitral valve without significant stenosis or prolapse. There is no mitral regurgitation. Aortic Valve Moderate aortic valve calcification. No aortic valve stenosis. No aortic valve regurgitation. Tricuspid Valve Structurally normal tricuspid valve without significant stenosis or regurgitation. Pulmonary artery systolic pressure is normal. Pulmonic Valve Structurally normal pulmonic valve without significant stenosis. There is no pulmonic regurgitation. Pericardium Normal pericardium without effusion. Aorta Normal ascending aorta dimension. CONCLUSIONS 1-Normal left ventricular cavity size. Normal left ventricular systolic function. No regional wall motion abnormalities. Left ventricular ejection fraction is estimated at 67 %. Grade I/IV diastolic dysfunction (abnormal relaxation filling pattern), normal to mildly elevated filling pressures. 2-No significant valve abnormalities. 3-There is no pericardial effusion. 4-Pulmonary artery systolic pressure is within normal limits. 5-Right atrial pressure is around 5 mm of mercury. 6-There are no prior echocardiogram studies to compare. Federico Mcfarlane MD (Electronically Signed) Final Date: 09 May 2019 14:42 S
--- NOTE | 2019-05-09 12:33 | PC.CHAP ---
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 [] Patient/Family/Request visit [] Outpatient visit [] Follow-up visit [] Physician referral [] Code/Alert [] Routine visit [] Staff referral [] Actively dying [] Patient sleeping [] Family support [] [] Out of room [] Palliative care [] [] Receiving care in room [] Pre-surgical visit [] Trauma [] Long length of stay [] ICU visit [x] Other: Relational/Emotional Strength [] Patient feels connected with others/family/visitors/staff [] Distress [] Loneliness/isolation [] Abandonment Spirituality of Patient [] Person of Lilli [] Attends Islam of their Lilli [] Believes in Prayer [] Reads Bible or Jehovah'S Witness materials [] There are Spiritual issues to be addressed Assembly Worker Interventions [] Prayer [] Active listening [] Non-anxious presence [] Spiritual/emotional support [] Crisis/trauma care [] Spiritual counseling [] Bereavement support [] Provided bereavement packet [] Provided Bible/devotional materials [] Provided toy/stuffed animal, coloring book to patient or family member [] Completed spiritual assessment [] Provided Communion [] Anointing/[place] [] Salvation [x] Other: Impact on Illness or Injury [] Angry [] Fearful [] Anxious [] Often cries [] Exhaustion [] Unable to work [] Unable to attend druze [] Unable to walk/stand [] Unable to read [] Unable to drive [] Unable to eat/drink [] Unable to sleep [] Unable to be with family [] Other: Summary Patient was busy and declined Nohemi visit. Time spent with patient 2-minutes
[2019-05-09] MEDS: citalopram 20 mg Tablet 10 MG PO (14:18)
[2019-05-09] MEDS: levoFLOXacin 750 mg Tablet PO (14:18)
[2019-05-09] MEDS: HYDROcodone-acetaminophen 5-325 mg Tablet 1 TAB PO ×2 (14:19→21:48)
[2019-05-09] MEDS: ipratropium-albuterol 3 mL Neb INHALATION ×2 (14:28→20:53)
[2019-05-09] MEDS: ARIPiprazole 10 mg Tablet 5 MG PO (21:49)
[2019-05-10] VITALS (13 sets, daily range): BP systolic 113–133; BP diastolic 51–60; PULSE 68–79; RESP 13–25; TEMP 36.6–37; O2SAT 93–98; BMI 36.6
[2019-05-10] MEDS: HYDROcodone-acetaminophen 5-325 mg Tablet 1 TAB PO ×3 (02:40→18:30)
[2019-05-10] MEDS: ipratropium-albuterol 3 mL Neb INHALATION ×4 (02:52→20:33)
[2019-05-10 05:33] LABS: Hematocrit 32.7 % (37.0-47.0); Hemoglobin 10.2 g/dL (11.5-15.3); Lymphocytes # 0.5 10^3/uL (0.8-4.8); Lymphocytes % 4.8 %; Mean Corpuscular HGB Conc 31.2 g/dL (30.0-36.0); Mean Corpuscular Hemoglobin 27.8 pg (28.0-34.0); Mean Corpuscular Volume 89.1 fL (81-99); Mean Platelet Volume 10.4 fL (7.4-10.4); Monocytes # 0.4 10^3/uL (0.2-0.9); Monocytes % 4.5 %; Neutrophils # 8.7 10^3/uL (1.8-7.7); Neutrophils % 90.3 %; Nucleated Red Blood Cells % 0 %; Platelet Count 300 10^3/cmm (130-400); Red Blood Count 3.67 10^6/uL (4.1-5.3); Red Cell Distribution Width 12.9 % (12.1-15.1); White Blood Count 9.6 10^3/uL (4.0-10.0)
[2019-05-10 05:52] LABS: Blood Urea Nitrogen 19 mg/dL (8-23); Calcium 8.9 mg/dL (8.5-10.5); Carbon Dioxide 28 mmol/L (22-29); Chloride 99 mmol/L (98-107); Glucose 169 mg/dL (74-106); Osmolality Calculated 284 mOsm/kg (285-295); Sodium 137 mmol/L (136-145)
[2019-05-10] MEDS: citalopram 20 mg Tablet 10 MG PO (09:16)
[2019-05-10] MEDS: levoFLOXacin 750 mg Tablet PO (09:17)
--- NOTE | 2019-05-10 11:36 | PM.PN ---
Subjective Subjective: Interval history: Patient seems to be doing better. States she is less short of breath. No fevers or chills. Still wheezing quite a bit. Still requiring O2. Vitals/I&O/Wt Last Vital Signs Temp 98.2 F 05/10/19 11:24 Pulse 72 05/10/19 11:24 Resp 13 05/10/19 11:24 BP 113/55 05/10/19 11:24 Pulse Ox 95 05/10/19 11:24 05/09/19 05/10/19 05/10/19 22:59 06:59 14:59 Intake Total 960 / 1720 120 / 1720 120 / 120 Output Total 250 / 250 Balance 960 / 1470 -130 / 1470 120 / 120 Weight last 48 hrs Weight 200 lb Weight 200 lb Physical Exam Narrative: EXAM NARRATIVE: General: No acute distress, Alert. Well nourished. Heart: Regular rate and rhythm. No murmurs, rubs or gallops. Normal capillary refill. Lungs: Significant expiratory wheezes. No significant crackles occasional rhonchi are present.. Abdomen: Positive bowel sounds. Non-tender, non-distended. No hepatosplenomegaly. No gaurding. Extremities: No clubbing, cyanosis, or edema. Negative Chaitanya's Data : 05/10/19 04:45 05/10/19 04:45 Micro: Microbiology 05/09/19 05:10 Blood Culture - Preliminary Blood NEGATIVE TO DATE 05/09/19 04:50 Blood Culture - Preliminary Blood NEGATIVE TO DATE A&P Assessment and plan (1) COPD (chronic obstructive pulmonary disease): Suspect most of her respiratory distress at this point is from COPD. She is wheezing significantly. We will go ahead and start some IV steroids. She states that prednisone has made her a bit crazy in the past will monitor closely for this. Continue with respiratory therapy and breathing treatments. We will also start incentive spirometry and flutter valve as well. Start Mucinex as a mucolytic. We will attempt to wean her oxygen today. Anticipate discharge home we are able to get her back to her home O2 requirements. Status: Acute Code(s): J44.9 - Chronic obstructive pulmonary disease, unspecified (2) Pneumonia: Continue antibiotics with Levaquin for now. CT scan really does not show much evidence of this. She does have some significant pulmonary nodules though that probably will need outpatient follow-up CT or PET scan done. Discussed this with her. Status: Acute Code(s): J18.9 - Pneumonia, unspecified organism (3) Pulmonary embolism: Continue with Lovenox for now. Will need to transition to Eliquis as an outpatient. Status: Acute Code(s): I26.99 - Other pulmonary embolism without acute cor pulmonale Attestations Medical Necessity Statement*: Patient is a 69-year-old female with COPD exacerbation, PE and possible pneumonia requiring continued IV treatments and oxygen therapy in the inpatient setting. 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
[2019-05-10] MEDS: enoxaparin 100 mg/mL Syringe 90 MG SUBCUT ×2 (11:42→21:05)
[2019-05-10 20:45] LABS: Add Urine Microscopic? NO
[2019-05-10 20:53] LABS: Bilirubin Urine Neg (NEGATIVE); Blood Urine Neg (Negative); Glucose Urine UA Norm (Normal); Ketones Urine Negative (Negative); Leukocyte Esterase Urine Negative (Negative); Nitrate Urine Negative (Negative); Protein Urine Neg (Negative); Specific Gravity, Urine 1.015 (1.005-1.030); Urine Appearance Clear (CLEAR); Urine Color Yellow (Yellow); Urobilinogen Urine Norm (Negative); pH Urine 5 (5-7)
[2019-05-10] MEDS: ARIPiprazole 10 mg Tablet 5 MG PO (21:05)
--- NOTE | 2019-05-10 22:56 | PC.NURSE ---
THIS EVENING IN DAY SHIFT THE NURSE GAVE PATIENT HER EYE WASH DROPS BUT HER SCAN DID NOT TAKE IT WAS READING THAT IT HADNT BEEN GIVEN BUT THIS PATIENT AND ONE OTHER HAD GOTTEN THEIR MEDICINE IN QUESTION I VERIFIED.
[2019-05-11] VITALS (12 sets, daily range): BP systolic 136–159; BP diastolic 58–68; PULSE 60–83; RESP 13–20; TEMP 36.4–36.8; O2SAT 94–97
[2019-05-11 04:54] LABS: Hematocrit 35.6 % (37.0-47.0); Hemoglobin 10.8 g/dL (11.5-15.3); Lymphocytes # 0.4 10^3/uL (0.8-4.8); Lymphocytes % 5.1 %; Mean Corpuscular HGB Conc 30.3 g/dL (30.0-36.0); Mean Corpuscular Hemoglobin 27.1 pg (28.0-34.0); Mean Corpuscular Volume 89.2 fL (81-99); Mean Platelet Volume 10.3 fL (7.4-10.4); Monocytes # 0.2 10^3/uL (0.2-0.9); Monocytes % 2.1 %; Neutrophils # 6.5 10^3/uL (1.8-7.7); Neutrophils % 92.1 %; Nucleated Red Blood Cells % 0 %; Platelet Count 357 10^3/cmm (130-400); Red Blood Count 3.99 10^6/uL (4.1-5.3); Red Cell Distribution Width 12.7 % (12.1-15.1); White Blood Count 7.1 10^3/uL (4.0-10.0)
[2019-05-11 05:13] LABS: Alanine Aminotransferase 18 U/L (0-33); Albumin Level 3.2 g/dL (3.5-5.2); Alkaline Phosphatase 115 IU/L (35-105); Anion Gap 14.9 (5-19); Aspartate Amino Transferase 18 U/L (0-32); Blood Urea Nitrogen 18 mg/dL (8-23); Calcium 9.2 mg/dL (8.5-10.5); Carbon Dioxide 30 mmol/L (22-29); Chloride 99 mmol/L (98-107); Globulin 3.3 g/dL (1.3-4.6); Glucose 220 mg/dL (74-106); Potassium 4.9 mmol/L (3.5-5.1); Sodium 139 mmol/L (136-145); Total Bilirubin 0.3 mg/dL (0.15-1.2); Total Protein 6.5 g/dL (6.6-8.7)
[2019-05-11] MEDS: citalopram 20 mg Tablet 10 MG PO (08:02)
[2019-05-11] MEDS: levoFLOXacin 750 mg Tablet PO (08:03)
[2019-05-11] MEDS: guaiFENesin 600 mg Tablet 1200 MG PO ×2 (08:03→18:06)
--- NOTE | 2019-05-11 08:03 | P.PN_ITS ---
Subjective Subjective: Interval history: Patient still having some shortness of breath. Not as bad. Coughing up sputum but is getting more clear. No fevers or chills.. Medications: Reviewed: Yes Medication Review Details: Current Medications Acetaminophen (Tylenol) 650 mg PO Q6H PRN PRN Reason: Mild/Mod Pain Or Temp >/= 101 Hydrocodone Bitart/Acetaminophen ([place] 5-325 Mg) 1 tab PO Q4H PRN PRN Reason: Moderate Pain Last Admin: 05/11/19 08:06 Dose: 1 tab Documented by: Albuterol/Ipratropium (Duoneb) 3 ml INHALATION Q6H PRN PRN Reason: SHORTNESS OF BREATH Last Admin: 05/11/19 08:33 Dose: 3 ml Documented by: Aripiprazole (Abilify) 5 mg PO BEDTIME [facility] Last Admin: 05/10/19 21:05 Dose: 5 mg Documented by: Citalopram Hydrobromide (Celexa) 10 mg PO DAILY [facility] Last Admin: 05/11/19 08:02 Dose: 10 mg Documented by: Enoxaparin Sodium (Lovenox) 90 mg 1 mg/kg (90 mg) SUBCUT Q12H [facility] Last Admin: 05/10/19 21:05 Dose: 90 mg Documented by: Guaifenesin (Mucinex) 1,200 mg PO BID [facility] Last Admin: 05/11/19 08:03 Dose: 1,200 mg Documented by: Levofloxacin (Levaquin) 750 mg PO DAILY [facility]; Protocol Last Admin: 05/11/19 08:03 Dose: 750 mg Documented by: Methylprednisolone Sodium Succinate (Solu-Medrol) 60 mg IVP Q8H [facility] Last Admin: 05/11/19 03:36 Dose: 60 mg Documented by: Non-Formulary Medication (Chlorpheniramine Maleate [Chlortabs]) 4 mg PO DAILY PRN PRN Reason: Allergic Symptoms Ondansetron HCl (Zofran) 4 mg PO Q8H PRN PRN Reason: NAUSEA Fluticasone/Salmeterol (Advair Diskus 500-50) 1 puff INHALATION BID.RESPIRATORY [facility] Last Admin: 05/11/19 08:36 Dose: 1 puff Documented by: Tramadol HCl (Ultram) 50 mg PO Q6H PRN PRN Reason: pain Vitals/I&O/Wt Last Vital Signs Temp 98.3 F 05/11/19 04:00 Pulse 67 05/11/19 04:00 Resp 17 05/11/19 04:00 BP 159/68 05/11/19 04:00 Pulse Ox 96 05/11/19 04:00 05/10/19 05/11/19 05/11/19 22:59 06:59 14:59 Intake Total 300 / 900 240 / 900 Output Total 100 / 100 300 / 300 Balance 200 / 800 240 / 800 -300 / -300 Weight last 48 hrs Weight 217 lb Weight 200 lb Physical Exam Narrative: EXAM NARRATIVE: General: No acute distress, Alert. Well nourished. Heart: Regular rate and rhythm. No murmurs, rubs or gallops. Normal capillary refill. Lungs: Significant expiratory wheezes, but improved from yesterday. No significant crackles occasional rhonchi are present.. Abdomen: Positive bowel sounds. Non-tender, non-distended. No hepatosplenomegaly. No gaurding. Extremities: No clubbing, cyanosis, or edema. Negative Chaitanya's Data : 05/11/19 04:17 05/11/19 04:17 Micro: Microbiology 05/09/19 05:10 Blood Culture - Preliminary Blood NEGATIVE TO DATE 05/09/19 04:50 Blood Culture - Preliminary Blood NEGATIVE TO DATE A&P Assessment and plan (1) COPD (chronic obstructive pulmonary disease): Suspect most of her respiratory distress at this point is from COPD. Continue to try to wean her down on her oxygen. Continue IV steroids and antibiotics. Continue with breathing treatments as well. Anticipate possible discharge home tomorrow. Status: Acute Code(s): J44.9 - Chronic obstructive pulmonary disease, unspecified (2) Pneumonia: Continue antibiotics with Levaquin for now. CT scan really does not show much evidence of this. She does have some significant pulmonary nodules though that probably will need outpatient follow-up CT or PET scan done. Discussed this with her. Status: Acute Code(s): J18.9 - Pneumonia, unspecified organism (3) Pulmonary embolism: Continue with Lovenox for now. Will need to transition to Eliquis as an outpatient. Status: Acute Code(s): I26.99 - Other pulmonary embolism without acute cor pulmonale Attestations Medical Necessity Statement*: This is a 69-year-old female with COPD exacerbation requiring continued inpatient hospitalization and treatments. Coding Level of Care Code Acute [facility] Diagnoses COPD (chronic obstructive pulmonary disease) J44.9 Pneumonia J18.9 Pulmonary embolism I26.99
[2019-05-11] MEDS: HYDROcodone-acetaminophen 5-325 mg Tablet 1 TAB PO ×2 (08:06→18:20)
[2019-05-11] MEDS: ipratropium-albuterol 3 mL Neb INHALATION ×2 (08:33→14:14)
[2019-05-11] MEDS: enoxaparin 100 mg/mL Syringe 90 MG SUBCUT ×2 (10:13→21:50)
[2019-05-11] MEDS: ARIPiprazole 10 mg Tablet 5 MG PO (21:49)
[2019-05-12] VITALS (11 sets, daily range): BP systolic 144–189; BP diastolic 57–77; PULSE 63–84; RESP 15–25; TEMP 36.4–36.9; O2SAT 88–98; BMI 39.6
--- NOTE | 2019-05-12 08:46 | FL_ITS ---
WS: [id number] MODIFIED BARIUM SWALLOW HISTORY: Oropharyngeal dysphagia FLUOROSCOPY TIME: 1.4 minutes. Modified barium swallow was performed by the speech pathologist. Fluoroscopy was provided with the pa tient in a lateral projection. Multiple food consistencies were provided. Patient swallowed the food consistencies without difficulty. A few episodes of laryngeal penetration were noted with thin liquids. No aspiration. Barium tablet was swallowed without difficulty. FL/FL barium swallow modifd [id number] IMPRESSION: Minimal laryngeal penetration with the thin liquids. Otherwise negative. Please see speech therapist report also for recommendations.
[2019-05-12] MEDS: guaiFENesin 600 mg Tablet 1200 MG PO ×2 (08:54→17:38)
[2019-05-12] MEDS: apixaban 5 mg Tablet 10 MG PO ×2 (08:54→17:38)
[2019-05-12] MEDS: levoFLOXacin 750 mg Tablet PO (08:54)
[2019-05-12] MEDS: citalopram 20 mg Tablet 10 MG PO (08:55)
[2019-05-12] MEDS: ipratropium-albuterol 3 mL Neb INHALATION (09:27)
[2019-05-12] MEDS: predniSONE 20 mg Tablet 40 MG PO (12:32)
[2019-05-12] MEDS: amlodipine 10 mg Tablet PO (12:32)
--- NOTE | 2019-05-12 12:51 | PC.NURSE ---
Pt reported that she had taken oral prednisone before once and it made her agitated and not herself. Informed pt that she has been taking an IV solu-medrol which is the same. no reported side effects by pt. Dr. Shaver during rounded yesterday and doc asked her if there is any problem with it and she told the doctor no. I told her she can refuse. She replied she will take it. Informed her to notify nurse later after admin. Dr. Hagen notified. Informed the pt that doctor was informed on this and he is okay for her to take the medication. Pt verbalizes understanding.
--- NOTE | 2019-05-12 12:58 | PC.CHAP ---
Pastoral Care Encounter/Spiritual Assessment Type of Contact [] Declined medical researcher visit [] Patient/Family/Request visit [] Outpatient visit [] Follow-up visit [] Physician referral [] Code/Alert [] Routine visit [] Staff referral [] Actively dying [] Patient sleeping [] Family support [] [] Out of room [] Palliative care [] [] Receiving care in room [] Pre-surgical visit [] Trauma [] Long length of stay [] ICU visit [] Other: Relational/Emotional Strength [x] Patient feels connected with others/family/visitors/staff [] Distress [] Loneliness/isolation [] Abandonment Spirituality of Patient [x] Person of Lilli [] Attends Sikhism of their Lilli [x] Believes in Prayer [] Reads Bible or Buddhist materials [] There are Spiritual issues to be addressed Mixer [employer] Interventions [x] Prayer [x] Active listening [x] Non-anxious presence [] Spiritual/emotional support [] Crisis/trauma care [] Spiritual counseling [] Bereavement support [] Provided bereavement packet [] Provided Bible/devotional materials [] Provided toy/stuffed animal, coloring book to patient or family member [x] Completed spiritual assessment [] Provided Communion [] Anointing/[place] [] Salvation [] Other: Impact on Illness or Injury [] Angry [] Fearful [] Anxious [] Often cries [] Exhaustion [] Unable to work [] Unable to attend restoration [x] Unable to walk/stand [] Unable to read [x] Unable to drive [] Unable to eat/drink [] Unable to sleep [] Unable to be with family [] Other: Summary getting ready to go to rehab. Alert, bright, cheerfull. Had set back from surgery Time spent with patient 15 min.
[2019-05-12] MEDS: metoprolol tartrate 25 mg Tablet PO ×2 (14:27→17:38)
--- NOTE | 2019-05-12 14:41 | P.DS_ITS ---
Discharge Providers Date of Admission: 05/09/19 11:40 Date of Discharge: 05/12/19 Attending Provider at Admission: Beena Gonzalez MD Attending Provider at Discharge: Supa Hagen MD Diagnoses at Discharge Discharge Diagnosis (1) COPD (chronic obstructive pulmonary disease): Status: Acute (2) Pneumonia: Status: Acute (3) Pulmonary embolism: Status: Acute Reason for Visit Reason for Visit: Reason For Visit: RESP DISTRESS/ LEFT RIB PAIN Hospital Course Discharge Summary: This is a 69-year-old female with a past medical history this is a 69-year-old female with a past medical history of COPD, recent history of total right hip arthroplasty by Dr. Spaulding, depression, osteoporosis who presents to the emergency room due to complaints of shortness of breath. Patient was admitted for respiratory failure secondary to COPD exacerbation, pneumonia, subsegmental pulmonary embolism. Patient was admitted to the [facility] on Bi[facility], received IV fluids, broad-spectrum antibiotics, IV steroids, therapeutic Lovenox, inhaler therapy, oxygen therapy. Patient clinically improved, she was discharged on Levaquin, a steroid taper, Eliquis, oxygen therapy 3 L throughout the day and night, with a close follow-up with her primary care provider as outpatient. Patient was [facility] to [facility]. In addition patient was found to have hilar adenopathy with multiple pulmonary nodules, was advised to quit smoking, and to follow-up with Dr. Campo pulmonary critical care in 1 month for further work-up. There was also concerns for possible aspiration, however swallow study showed some penetration with thin liquids, and speech therapy recommended thin liquids with chin tuck. For her right hemiarthroplasty, patient has her che still in place, has to follow-up with Dr. Spaulding for staple removal. Patient was also found to be hypertensive during admission, she was discharged with amlodipine 10 mg once daily, metoprolol 25 twice daily, with close monitoring of her blood pressure as outpatient. Physical Exam Const: COMMON NORMALS: no apparent distress and oriented x3 GENERAL APPEARANCE: cooperative and comfortable HENMT: COMMON NORMALS: normocephalic HEAD & SCALP: normocephalic Eye: COMMON NORMALS: PERRL, EOMs intact bilaterally and no papilledema GENERAL EYE: normal appearance of both eyes PUPIL: Yes PERRL DIRECT OPHTHALMOSCOPY: Yes no papilledema Neck/C-Spine: COMMON NORMALS: full ROM, no lymphadenopathy, no JVD and thyroid normal THYROID: thyroid normal Lymph: LYMPHATIC: no lymphadenopathy noted Resp: COMMON NORMALS: normal respiratory effort, no retractions, no use of accessory muscles and clear to auscultation bilaterally AUSCULTATION: clear to auscultation bilaterally Cardio: COMMON NORMALS: no JVD, regular rate, regular rhythm, S1 normal heart sound, S2 normal heart sound, no gallops, no clicks and no murmurs RATE: regular rate RHYTHM: regular rhythm HEART SOUNDS: S1 normal and S2 normal GI: COMMON NORMALS: normal to inspection, nondistended, normoactive bowel sounds, soft to palpation, non-tender and no hepatosplenomegaly PALPATION: Yes soft and Yes no hepatosplenomegaly Extremity: COMMON NORMALS: normal to inspection, full ROM and no pedal edema Neuro: COMMON NORMALS: oriented x3 Psych: COMMON NORMALS: mental status grossly normal, thought process normal and cooperative THOUGHT PROCESS: normal thought process Discharge Data Data Completed and Pending: Completed Studies During Hospitalization Category Date Time Status CT angio chest PE protcl [id number] Stat Cat Scan 05/09/19 05:25 Completed FL barium swallow modifd [id number] Rout ine Exams 05/12/19 08:46 Completed XR chest 1V tony ble [id number] Stat Exams 05/09/19 04:41 Completed CV echo complete* [id number] Urgent Ultrasound 05/09/19 12:16 Completed Pending at discharge Category Date Time Status Blood Culture Sta t Lab 05/09/19 05:10 Results Vitals: Last Vital Signs Temp 97.6 F 05/12/19 11:13 Pulse 72 05/12/19 14:00 Resp 25 H 05/12/19 11:13 BP 165/66 05/12/19 14:33 Pulse Ox 93 05/12/19 14:00 Discharge Plan Discharge Patient Disposition: Xfer SNF Condition: Stable Prescriptions: New Elijaquelinis DVT-PE Treat 30D Start 5 mg (74 tabs) tablets,dose pack See Rx Instructions .ROUTE .COMPLEX Qty: 74 RF: 0 levofloxacin 750 mg Tablet 750 mg PO DAILY 4 Days Qty: 4 RF: 0 Mucinex 600 mg Tablet Extended Release 12hr 1,200 mg PO BID 30 Days Qty: 6 RF: 0 prednisone 10 mg tablet 10 mg PO DAILY 25 Days Qty: 53 RF: 0 metoprolol tartrate 25 mg tablet 25 mg PO BID 30 Days Qty: 60 RF: 0 Norvasc 10 mg tablet 10 mg PO DAILY 30 Days Qty: 30 RF: 0 Continued citalopram [Celexa] 10 mg Tablet 10 mg PO DAILY RF: 0 alendronate 70 mg Tablet 70 mg PO Q7D RF: 0 aripiprazole [Abilify] 5 mg Tablet 5 mg PO BEDTIME RF: 0 chlorpheniramine maleate [ChlorTabs] 4 mg Tablet 4 mg PO DAILY PRN (Reason: Allergic Symptoms) RF: 0 albuterol sulfate 2.5 mg /3 mL (0.083 %) solution for nebulization See Rx Instructions .ROUTE .COMPLEX RF: 0 albuterol sulfate [Ventolin HFA] 90 mcg/actuation Hfa Aerosol Inhaler 2 puff INHALATION QID PRN (Reason: Shortness Of Breath) RF: 0 tramadol 50 mg tablet See Rx Instructions .ROUTE .COMPLEX PRN (Reason: pain) RF: 0 hydrocodone-acetaminophen 5-325 mg Tablet 1 tab PO Q4H PRN (Reason: Moderate Pain) Qty: 30 RF: 0 Advair Diskus 500-50 mcg/dose Blister With Device 1 inh INHALATION BID RF: 0 Discontinued enoxaparin [Lovenox] 40 mg/0.4 mL Syringe 40 mg SUBCUT Q24H Qty: 10 RF: 0 Discharge Orders: Discharge Order (Routine); Ordered 05/12/19 Ordered By: Supa Hagen Referrals: [facility] [Outside] Kym Campo MD [Physician] - 1 month (pulmonary nodules with hilar adenoptahy) Discharge Diet: Advance as tolerated Discharge Activity: Resume usual activity Patient Instructions: COPD, Metoprolol (By mouth), Decongestant/Expectorant (By mouth), Prednisone (By mouth), Amlodipine (By mouth), Levofloxacin (By mouth), Apixaban (By mouth), Hypertension, Heart Failure (DC), Chest Pain (DC), Pulmonary Embolism (DC), Total Hip Replacement (DC), Cigarette Smoking and Your Health (GEN), Chronic Obstructive Pulmonary Disease (GEN), Pneumonia (DC), CHF Stoplight, COPD Stoplight, Chest Pain Stoplight Activity Restrictions/Additional Instructions: -Please take antibiotics and steroids as prescribed -Please use inhalers as prescribed -Please follow-up with pulmonary in 1 month -Please take Eliquis as prescribed -Please follow-up with Dr. Spaulding in the next week for staple removal for right hemiarthroplasty Discharge Attestations Time Spent in Discharge Care*: less than 30 min Quality Metrics Clinical Quality Measures During this hospital stay, did patient experience: VTE Contraindication to Overlap Therapy: Overlap treatment not indicated VTE Discharge Education: Education about anticoagulant therapy/Care Notes given and None Coding Level of Care Code Acute Day Guard for [facility] Fwd Diagnoses COPD (chronic obstructive pulmonary disease) J44.9 Pneumonia J18.9 Pulmonary embolism I26.99
--- NOTE | 2019-05-12 15:01 | PC.SOCIAL ---
Pg 2 of IMM Pg 2 of IMM was explained to and signed by patient, copy was provided, and form placed in chart. She verbalized understanding and had no questions.
--- NOTE | 2019-05-12 16:00 | PC.NURSE ---
SS- [employer] ready transportation and gave us 3 hr window. Awaiting for pt's transport.
--- NOTE | 2019-05-12 16:10 | PC.NURSE ---
Report called to Bernard Hyman Talked to staff nurse regarding her hospitalization, outpt ff-up with her otors, new discharge prescribed meds and its instructions. Informed staff on chin tuck during thin liquids. Discharge packet provided. Notified family day care worker.
--- NOTE | 2019-05-12 18:18 | PC.RESP ---
Patient given Pulmonary Rehab information.
--- NOTE | 2019-05-12 19:45 | PC.NURSE ---
This nurse went to assess patient for shift assessment. Patient sitting on side of bed. This nurse explained to patient that I had been told that transport would be here at 0900 in the morning for her. Patient became very upset. I have been here waiting since 8 o'clock this morning and they are just now finding out that the transport won't be here until in the morning....I am so sick and tired of this shit.....I could have called someone to take me down there if I would have known....I'm telling you this is bullshit....can you at least tell me why they can't come? This nurse explained to patient that I would have my charge nurse speak to her since she spoke with the transport company. Patient in agreement. Pinky Mckeon RN/Charge Nurse in to speak with patient.
--- NOTE | 2019-05-12 20:15 | PC.NURSE ---
Family member here to pick patient up. Patient to POV via wheelchair accompanied by this nurse. Into POV without difficulty. Seat belt fastened. Just know that I am upset over this. This nurse apologized to patient once again over situation.
--- NOTE | 2019-05-12 20:50 | PC.NURSE ---
Patient calling someone to come and pick her up to take her to [facility]. I don't need assessed because I'm leaving. Will monitor.
== END 2019-05-12 16:30 | disposition skilled nursing facility (03) | DRG 190 ==
LOC: ER 06:36 → CSU 11:40
PROVIDERS: Emergency Medicine; Family Medicine; Admitting Provider Family Medicine; Emergency Provider Family Medicine; Family Provider Family Medicine; Visit Provider Family Medicine
DX: J43.9 Emphysema, unspecified (principal); J18.9 Pneumonia, unspecified organism; J96.00 Acute respiratory failure, unspecified whether with hypoxia or hypercapnia; I26.93 Single subsegmental thrombotic pulmonary embolism without acute cor pulmonale; E87.70 Fluid overload, unspecified; Z96.641 Presence of right artificial hip joint; F32.9 Major depressive disorder, single episode, unspecified; M81.0 Age-related osteoporosis without current pathological fracture; R91.8 Other nonspecific abnormal finding of lung field
CPT/HCPCS: 12345; 36415; 36600; 71045; 71275; 74230; 80048; 80053; 81003; 82803; 83605; 83735; 83880; 84484; 85025; 85378; 85610; 87040; 87804; 92611; 93005; 93306; 94640; 96360; 96361; 96365; 96366; 96372; 96374; 96375; 97110; 97116; 97161; 99283; A9270; J0692; J1650; J1940; J2405; J2930; J3490; J7030; J7050; J7512; Q9967

== ENCOUNTER → 2019-05-29 09:01 | Outpatient (BNVA) | payer OTHER, MEDICAID, SELFPAY | PROVIDERS: Family Provider Family Medicine; Visit Provider Orthopaedic Surgery | DX: Z96.641 Presence of right artificial hip joint (principal) | CPT/HCPCS: 73502 ==

== ENCOUNTER 2019-06-17 13:59 | Outpatient (CLI) | payer MEDICARE, MEDICAID, SELFPAY ==
--- NOTE | 2019-06-17 14:15 | CT_ITS ---
WS: [id number] CT CHEST WITHOUT INTRAVENOUS CONTRAST HISTORY: mediastinal lymphadenopathy TECHNIQUE: Contiguous 5 mm axial imaging performed on the thorax. Coronal and sagittal reformats are submitted. All CT scans at [facility] use at least one of these dose optimization techniq ues: automated exposure control; mA and/or kV adjustment per patient size (includes targeted exams wh ere dose is matched to clinical indication); or iterative reconstruction. CONTRAST: None DLP: 838.74 mGycm COMPARISON: 05/09/2019 Lungs and central airway: Moderate pulmonary hyperinflation with emphysema. Significant improvement i n aeration throughout both lungs as compared to the prior study of 05/09/2019. There is still some blanche y mild interstitial thickening at the RIGHT lung base with some scattered areas of groundglass attenu ation. Subsegmental atelectasis at the lingula. Pleura: Normal. No pleural effusion. Heart and pericardium: Normal size heart. No effusion. Mediastinum and deandra: This study was performed without IV contrast therefore lymphadenopathy size is difficult. Compared to the prior study and there has been a significant improvement in the size and n umber of the lymph nodes. The largest lymph node at the RIGHT hilum has essentially resolved. Difficu lt to measure without IV contrast. Vessels: Mild atherosclerosis of aorta. No aneurysm. Pulmonary artery size is normal. Chest wall and lower neck: Mild diffuse anasarca within the soft tissues. Upper abdomen: Continued fullness in the LEFT renal pelvis is probably an extrarenal pelvis or parape lvic cysts. No interval change. Osseous structures: Mild anterior wedging of T7 and T10. CT/CT chest wo con [id number] IMPRESSION: 1. Significant improvement in aeration throughout both lungs compared to 2019. There is very minimal residual interstitial thickening at the RIGHT lung base. 2. Chronic emphysema. 3. Significant reduction of mediastinal and hilar lymphadenopathy since 020. Lymph nodes were probably reactive.
== END 2019-06-17 14:00 | disposition home or self-care (01) ==
PROVIDERS: Family Provider Family Medicine; PCP Family Medicine; Visit Provider Internal Medicine Critical Care Medicine
DX: J43.9 Emphysema, unspecified (principal); R59.0 Localized enlarged lymph nodes
CPT/HCPCS: 71250

== ENCOUNTER → 2019-06-30 10:02 | Outpatient (BNVA) | payer MEDICARE, MEDICAID, SELFPAY | PROVIDERS: Family Provider Family Medicine; PCP Family Medicine; Visit Provider Internal Medicine Cardiovascular Disease | DX: I50.9 Heart failure, unspecified (principal); M79.89 Other specified soft tissue disorders | CPT/HCPCS: 80048; 83735; 83880 ==

== ENCOUNTER → 2020-07-30 08:54 | Outpatient (BNVA) | payer MEDICARE, MEDICAID, SELFPAY | PROVIDERS: Family Provider Family Medicine; PCP Family Medicine; Visit Provider Nurse Practitioner Family | DX: M79.642 Pain in left hand (principal) | CPT/HCPCS: 73130 ==

== ENCOUNTER 2020-09-15 06:00 | Outpatient (RCR) | payer MEDICARE, MEDICAID, SELFPAY | END 2020-10-13 23:59 | disposition home or self-care (01) | LOC: TOT 06:00 | PROVIDERS: Family Provider Family Medicine; PCP Nurse Practitioner Family; Referring Provider Orthopaedic Surgery; Visit Provider Orthopaedic Surgery | DX: M79.642 Pain in left hand (principal) | CPT/HCPCS: 97110; 97140; 97166; 97530 ==

== ENCOUNTER 2020-10-14 06:00 | Outpatient (RCR) | payer MEDICARE, MEDICAID, SELFPAY | END 2020-11-13 23:59 | disposition home or self-care (01) | LOC: TOT 06:00 | PROVIDERS: Family Provider Family Medicine; PCP Nurse Practitioner Family; Referring Provider Orthopaedic Surgery; Visit Provider Orthopaedic Surgery | DX: M79.642 Pain in left hand (principal) | CPT/HCPCS: 97110; 97530 ==

== ENCOUNTER 2021-06-27 16:00 | Emergency (ER) | payer MEDICARE, MEDICAID, SELFPAY ==
[2021-06-27 16:06] VITALS: BP 184/62; PULSE 59; RESP 18; TEMP 36.4; O2SAT 100; BMI 31.1
--- NOTE | 2021-06-27 16:08 | CTR_ITS ---
PROCEDURE INFORMATION: Exam: CT Abdomen And Pelvis With Contrast Exam date and time: 06/27/2021 4:08 PM Age: 71 years old Clinical indication: Abdominal pain; Additional info: Eval for pathologies llq TECHNIQUE: Imaging protocol: Computed tomography of the abdomen and pelvis with contrast. Radiation optimization: All CT scans at this facility use at least one of these dose optimization techniques: automated exposure control; mA and/or kV adjustment per patient size (includes targeted exams where dose is matched to clinical indication); or iterative reconstruction. Contrast material: OMNI 300; Contrast volume: 95 ml; Contrast route: INTRAVENOUS (IV); COMPARISON: CT bony pelvis [id number] 04/27/2019 11:04 AM RADIATION DOSE METRICS: Total DLP (mGy-cm): 1504.06 FINDINGS: Lungs: Right lower lobe atelectasis versus minimal infiltrate. Liver: Normal. No mass. Gallbladder and bile ducts: Normal. No calcified stones. No ductal dilation. Pancreas: Normal. No ductal dilation. Spleen: Normal. No splenomegaly. Adrenal glands: Normal. No mass. Kidneys and ureters: Bilateral renal cysts, negative for follow-up advised. Stomach and bowel: Diverticulosis without diverticulitis. Appendix: No evidence of appendicitis. Intraperitoneal space: Unremarkable. No free air. No significant fluid collection. Vasculature: Unremarkable. No abdominal aortic aneurysm. Lymph nodes: Unremarkable. No enlarged lymph nodes. Urinary bladder: Unremarkable as visualized. Reproductive: Unremarkable as visualized. Bones/joints: Large amount of fluid in the urinary bladder, please correlate for possible outflow obstruction, negative for obstructing lesion seen. Soft tissues: Unremarkable. CT/CT abdomen pelvis w con* [id number] IMPRESSION: 1. Negative for focal acute inflammatory process in the abdomen or pelvis. 2. Right lower lobe atelectasis versus minimal infiltrate. 3. Bilateral renal cysts, negative for follow-up advised. 4. Large amount of fluid in the urinary bladder, please correlate for possible outflow obstruction, negative for obstructing lesion seen. 5. Diverticulosis without diverticulitis.
[2021-06-27 16:11] VITALS: BP 136/78; PULSE 54; RESP 18; TEMP 36.6; O2SAT 100
--- NOTE | 2021-06-27 16:19 | W.ED.GENADLT ---
HPI - General Adult General: Chief complaint: Abdominal Pain Stated complaint: LLQ ABD PAIN Time Seen by Provider: 06/27/21 16:08 History of Present Illness: Patient is a 71-year-old female with a history of prior tubal ligation who presents the emergency room with acute onset of left lower quadrant dull pain x2 hours. Patient was sitting on the couch watching TV when this all started. Since then, patient has had persistent sharp pain in the left lower quadrant with generalized pain throughout the abdomen. Patient reports nausea/vomiting and subjective fever but denies any diarrhea, melena/hematochezia. Patient has no history of constipation recently. No other prior abdominal surgery. No new urinary symptoms. Patient denies any history of renal colic. Onset: 2 hrs ago Duration:2 hrs Location:home Severity:moderate Associated symptoms: Reports nausea and vomiting; Deny chest pain, dyspnea, rash or palpitations Review of Systems Const: Reports: fever(s) and chills Eyes: Denies: change in vision ENMT: Denies: mouth pain Card: Denies: chest pain or palpitations Resp: Denies: dyspnea or non-productive cough GI: Reports: abdominal pain (+LLQ abdominal pain), nausea and vomiting; Denies: diarrhea : Denies: dysuria Musc: Denies: extremity pain Skin/Breast: Denies: rash or new lesions Neuro: Denies: weakness in extremities Psych: Reports: other (Normal mood) Jeremiah/Lymph: Denies: easy bruising [facility] ED PFSH: Medical History (Updated 06/27/21 @ 21:04 by Pancho Steele MD) Cervical vertebral fusion Condyloma acuminata s/p excision in 11/2017 COPD (chronic obstructive pulmonary disease) Depression Osteoporosis takes Aledronate 70 mg once weekly Surgical History H/O shoulder surgery left shoulder surgery History of cervical spinal surgery History of surgery on right wrist History of total right hip arthroplasty Family History Father Alcoholic cirrhosis of liver Mother CAD (coronary artery disease) Cerebral hemorrhage Social History Smoking and tobacco status: former smoker Quit status (tobacco): has quit using tobacco Year quit tobacco: 2018 - 1.5 PPD x 40 Years Second hand smoke exposure: Yes Alcohol intake: never Lives independently: Yes Household members: significant other Housing: House Current occupational status: retired and disabled History of recent travel: No Current gender identity: Female Physical Exam Const: COMMON NORMALS: alert HENMT: COMMON NORMALS: atraumatic HEAD & SCALP: atraumatic MOUTH: moist mucous membranes not abnormal Eye: COMMON NORMALS: EOMs intact bilaterally and conjunctivae normal CONJUNCTIVA: Yes conjunctivae normal Neck/C-Spine: COMMON NORMALS: full ROM and supple Resp: COMMON NORMALS: normal respiratory effort and clear to auscultation bilaterally AUSCULTATION: clear to auscultation bilaterally Cardio: COMMON NORMALS: regular rate RATE: regular rate GI: COMMON NORMALS: Soft to palpation PALPATION: Yes Soft to palpation OTHER: +moderate LLQ focal TTP. NO guarding rebound, guarding, rigidity. No CVA tenderness to percussion. Neg Oliver/Neg McBurney's point tenderness, no suprabupic tenderness to palpation. Extremity: COMMON NORMALS: full ROM Neuro: SENSORIUM/ORIENTATION: Yes alert MOTOR EXAM: No Abnormal motor strength present and Other motor observations present (no focal motor deficits) Psych: COMMON NORMALS: speech normal SPEECH: Yes normal speech MOOD & AFFECT: Yes euthymic mood Course Vital Signs: Vital signs: Vital Signs Temperature 97.4 F L 06/27/21 17:11 Pulse Rate 63 06/27/21 17:11 Respiratory Rate 18 06/27/21 17:27 Blood Pressure 133/87 06/27/21 17:11 Pulse Oximetry 99 06/27/21 17:11 [facility] - General Adult Medical Decision Making 71-year-old female with history of prior tubal ligation presenting to the emergency room with generalized abdominal pain worse in the left lower quadrant x2 hours. On exam, patient has moderate tenderness palpation diffusely worse in the left lower quadrant without any guarding or rebound tenderness. Lab work showed white count 4.2. CT of the pelvis showed large distended bladder of about 3.7 L in volume. We attempted to place a 16 Haitian Edgar followed by a 20 Haitian Edgar without any successful return of urine. Dr. Cortez is not currently on-call after 5pm today, decision was made to transfer patient to outside facility for cystoscopic evaluation and placement of edgar. Creatinine within normal limit. No signs of hydronephrosis. Given the fact that patient has no back pain, focal weakness in the legs, saddle anesthesia, numbness, do not suspect this is acute cord compression. Case was discussed with Dr. Nelson who agreed with the transfer to [facility] for management of significantly enlarged bladder. Disposition: Transfer to outside hospitalt Lab Data : 06/27/21 17:10 06/27/21 17:10 Radiology Impressions Abdomen/Pelvis CT 06/27/21 16:08 IMPRESSION: 1. Negative for focal acute inflammatory process in the abdomen or pelvis. 2. Right lower lobe atelectasis versus minimal infiltrate. 3. Bilateral renal cysts, negative for follow-up advised. 4. Large amount of fluid in the urinary bladder, please correlate for possible outflow obstruction, negative for obstructing lesion seen. 5. Diverticulosis without diverticulitis. Laboratory Results WBC 4.2 10^3/uL (4.0-10.0) 06/27/21 17:10 RBC 4.30 10^6/uL (4.1-5.3) 06/27/21 17:10 Hgb 13.0 g/dL (11.5-15.3) 06/27/21 17:10 Hct 41.1 % (37.0-47.0) 06/27/21 17:10 MCV 95.6 fl (81-99) 06/27/21 17:10 MCH 30.2 pg (28.0-34.0) 06/27/21 17:10 MCHC 31.6 g/dL (30.0-36.0) 06/27/21 17:10 RDW 12.5 % (12.1-15.1) 06/27/21 17:10 Plt Count 150 10^3/cmm (130-400) 06/27/21 17:10 MPV 10.3 fL (7.4-10.4) 06/27/21 17:10 Neut % (Auto) 84.2 % 06/27/21 17:10 Lymph % (Auto) 8.1 % 06/27/21 17:10 [place] % (Auto) 6.5 % 06/27/21 17:10 Eos % (Auto) 0.0 % 06/27/21 17:10 Baso % (Auto) 0.7 % 06/27/21 17:10 Neut # (Auto) 3.52 10^3/uL (1.8-7.7) 06/27/21 17:10 Lymph # (Auto) 0.3 10^3/uL (0.8-4.8) L 06/27/21 17:10 [place] # (Auto) 0.3 10^3/uL (0.2-0.9) 06/27/21 17:10 Eos # (Auto) 0.0 10^3/uL (0.0-0.8) 06/27/21 17:10 Baso # (Auto) 0.0 10^3/uL (0.0-0.1) 06/27/21 17:10 Nucleated RBC % (auto) 0 % 06/27/21 17:10 Nucleated RBCs # 0.0 /100WBC 06/27/21 17:10 Sodium 139 mmol/L (136-145) 06/27/21 17:10 Potassium 4.7 mmol/L (3.5-5.1) 06/27/21 17:10 Chloride 102 mmol/L (98-107) 06/27/21 17:10 Carbon Dioxide 29 mmol/L (22-29) 06/27/21 17:10 Anion Gap 12.7 (5-19) 06/27/21 17:10 BUN 11 mg/dL (8-23) 06/27/21 17:10 Creatinine 0.4 mg/dL (0.5-0.9) L 06/27/21 17:10 GFR Calculation Not Reportable 06/27/21 17:10 Glucose 134 mg/dL (65-115) H 06/27/21 17:10 Calculated Osmolality 289 mOsm/kg (285-295) 06/27/21 17:10 Calcium 9.5 mg/dL (8.5-10.5) 06/27/21 17:10 Total Bilirubin 0.4 mg/dL (0.15-1.2) 06/27/21 17:10 AST 10 U/L (0-32) 06/27/21 17:10 ALT < 5 U/L (0-33) 06/27/21 17:10 Alkaline Phosphatase 125 IU/L (35-105) H 06/27/21 17:10 Total Protein 6.8 g/dL (6.6-8.7) 06/27/21 17:10 Albumin 3.9 g/dL (3.5-5.2) 06/27/21 17:10 Globulin 2.9 g/dL (1.3-4.6) 06/27/21 17:10 Lipase 8 U/L (13-60) L 06/27/21 17:10 Urine Color Yellow (Yellow) 06/27/21 18:35 Urine Appearance Clear (CLEAR) 06/27/21 18:35 Urine pH 5 (5-7) 06/27/21 18:35 Ur Specific Maria Stein 1.020 (1.005-1.030) 06/27/21 18:35 Urine Protein Neg (Negative) 06/27/21 18:35 Urine Glucose (UA) Norm (Normal) 06/27/21 18:35 Urine Ketones 1+ (Negative) H 06/27/21 18:35 Urine Blood 3+ (Negative) H 06/27/21 18:35 Urine Nitrate Negative (Negative) 06/27/21 18:35 Urine Bilirubin Neg (Negative) 06/27/21 18:35 Urine Urobilinogen 1 mg/dL (Negative) H 06/27/21 18:35 Ur Leukocyte Esterase Negative (Negative) 06/27/21 18:35 Urine RBC 5-10 /hpf (0-2) H 06/27/21 18:35 Urine WBC Rare /hpf (0-5) 06/27/21 18:35 Ur Squamous Epith Cells 0-4 /hpf (0-5) H 06/27/21 18:35 Amorphous Sediment Not Reportable 06/27/21 18:35 Urine Bacteria Trace /hpf (NONE) 06/27/21 18:35 Urine Mucus 2+ /hpf 06/27/21 18:35 Imaging Data Other Imaging: Radiologist's impression: [address] [place] [address] CT Scan Report Signed Patient: Kimberly Mosquera Unit #: [id number] : 1950 Age/Sex: 71 / F ADM Date: 06/27/21 Loc: ER Room/Bed: Attending Dr: Ordering Provider/Ordering MD: Pancho Steele MD Date of Service: 06/27/21 Procedure(s): CT abdomen pelvis w con* [id number] Accession Number(s): [id number] Report Number: [id number] PROCEDURE INFORMATION: Exam: CT Abdomen And Pelvis With Contrast Exam date and time: 06/27/2021 4:08 PM Age: 71 years old Clinical indication: Abdominal pain; Additional info: Eval for pathologies llq TECHNIQUE: Imaging protocol: Computed tomography of the abdomen and pelvis with contrast. Radiation optimization: All CT scans at this facility use at least one of these dose optimization techniques: automated exposure control; mA and/or kV adjustment per patient size (includes targeted exams where dose is matched to clinical indication); or iterative reconstruction. Contrast material: OMNI 300; Contrast volume: 95 ml; Contrast route: INTRAVENOUS (IV);? COMPARISON: CT bony pelvis [id number] 04/27/2019 11:04 AM RADIATION DOSE METRICS: Total DLP (mGy-cm): 1504.06 FINDINGS: Lungs: Right lower lobe atelectasis versus minimal infiltrate. Liver: Normal. No mass. Gallbladder and bile ducts: Normal. No calcified stones. No ductal dilation. Pancreas: Normal. No ductal dilation. Spleen: Normal. No splenomegaly. Adrenal glands: Normal. No mass. Kidneys and ureters: Bilateral renal cysts, negative for follow-up advised. Stomach and bowel: Diverticulosis without diverticulitis. Appendix: No evidence of appendicitis. Intraperitoneal space: Unremarkable. No free air. No significant fluid collection. Vasculature: Unremarkable. No abdominal aortic aneurysm. Lymph nodes: Unremarkable. No enlarged lymph nodes. Urinary bladder: Unremarkable as visualized. Reproductive: Unremarkable as visualized. Bones/joints: Large amount of fluid in the urinary bladder, please correlate for possible outflow obstruction, negative for obstructing lesion seen. Soft tissues: Unremarkable. CT/CT abdomen pelvis w con* [id number] IMPRESSION: 1. Negative for focal acute inflammatory process in the abdomen or pelvis. 2. Right lower lobe atelectasis versus minimal infiltrate. 3. Bilateral renal cysts, negative for follow-up advised. 4. Large amount of fluid in the urinary bladder, please correlate for possible outflow obstruction, negative for obstructing lesion seen. 5. Diverticulosis without diverticulitis. ? Dictated By: Dre Conroy MD Signed By: Dre Conroy MD Signed Date/Time: 06/27/21 2967 DD/ 1608 Discharge Plan Discharge Patient Disposition: Transfer to ED Clinical Impression: Abdominal pain, Nausea & vomiting, Bladder distension Condition: Stable Prescriptions: No Action (DME) Walking Cane Qty: 1 0RF Rx Instructions: As directed chlorpheniramine maleate [ChlorTabs] 4 mg Tablet 4 mg PO DAILY PRN (Reason: Allergic Symptoms) 0RF albuterol sulfate 2.5 mg /3 mL (0.083 %) solution for nebulization See Rx Instructions .ROUTE .COMPLEX 0RF Rx Instructions: 2.5 mg vial q6h prn sob albuterol sulfate [Ventolin HFA] 90 mcg/actuation Hfa Aerosol Inhaler 2 puff INHALATION QID PRN (Reason: Shortness Of Breath) 0RF ropinirole 1 mg tablet 1 mg PO DAILY 0RF fluticasone propionate 50 mcg/actuation spray,suspension 50 mcg INTRANASAL BID 0RF Breztri Aerosphere 160-9-4.8 mcg/actuation HFA aerosol inhaler 2 inh INHALATION BID 0RF Referrals: Nakita Rob MD [Hospitalist] - Kamila Pineda FNP [Primary Care Provider] - Patient Instructions: Abdominal Pain (ED) Coding Level of Care Code ED Call Center Director for Chg Fwd Exam Comprehensive
[2021-06-27 16:41] VITALS: BP 128/87; PULSE 56; RESP 18; O2SAT 99
[2021-06-27 17:11] VITALS: BP 133/87; PULSE 63; RESP 18; TEMP 36.3; O2SAT 99
[2021-06-27 17:20] LABS: Basophils % 0.7 %; Hematocrit 41.1 % (37.0-47.0); Lymphocytes # 0.3 10^3/uL (0.8-4.8); Lymphocytes % 8.1 %; Mean Corpuscular HGB Conc 31.6 g/dL (30.0-36.0); Mean Corpuscular Hemoglobin 30.2 pg (28.0-34.0); Mean Corpuscular Volume 95.6 fl (81-99); Mean Platelet Volume 10.3 fL (7.4-10.4); Monocytes # 0.3 10^3/uL (0.2-0.9); Monocytes % 6.5 %; Neutrophils # 3.52 10^3/uL (1.8-7.7); Neutrophils % 84.2 %; Nucleated Red Blood Cells % 0 %; Platelet Count 150 10^3/cmm (130-400); Red Cell Distribution Width 12.5 % (12.1-15.1); White Blood Count 4.2 10^3/uL (4.0-10.0)
[2021-06-27 17:27] VITALS: RESP 18
[2021-06-27] MEDS: morphine 4 mg/mL SDV 1 mL 2 MG IVP (17:27)
[2021-06-27] MEDS: sodium chloride 0.9% 500 ML IV (17:27)
[2021-06-27] MEDS: ondansetron 2 mg/ML SDV 2 mL 4 MG IVP (17:27)
[2021-06-27 17:35] LABS: Alanine Aminotransferase < 5 U/L (0-33); Albumin Level 3.9 g/dL (3.5-5.2); Alkaline Phosphatase 125 IU/L (35-105); Anion Gap 12.7 (5-19); Aspartate Amino Transferase 10 U/L (0-32); Blood Urea Nitrogen 11 mg/dL (8-23); Calcium 9.5 mg/dL (8.5-10.5); Carbon Dioxide 29 mmol/L (22-29); Chloride 102 mmol/L (98-107); Globulin 2.9 g/dL (1.3-4.6); Glucose 134 mg/dL (65-115); Lipase 8 U/L (13-60); Osmolality Calculated 289 mOsm/kg (285-295); Potassium 4.7 mmol/L (3.5-5.1); Sodium 139 mmol/L (136-145); Total Bilirubin 0.4 mg/dL (0.15-1.2); Total Protein 6.8 g/dL (6.6-8.7)
[2021-06-27] MEDS: iohexol 300 mg/mL 100 mL Btl IV (18:04)
[2021-06-27 18:56] LABS: Add Urine Microscopic? YES; Bilirubin Urine Neg (Negative); Blood Urine 3+ (Negative); Glucose Urine UA Norm (Normal); Ketones Urine 1+ (Negative); Leukocyte Esterase Urine Negative (Negative); Nitrate Urine Negative (Negative); Protein Urine Neg (Negative); Urine Appearance Clear (CLEAR); Urine Color Yellow (Yellow); Urobilinogen Urine 1 mg/dL (Negative); pH Urine 5 (5-7)
[2021-06-27 18:57] LABS: Add Urine Culture? No; Bacteria Urine TRACE /hpf; Mucus Urine 2+ /hpf; Squamous Epithelial Cell Urine 0-4 /hpf (0-5); WBC Urine RARE /hpf (0-5)
[2021-06-27 21:54] VITALS: BP 113/78; PULSE 78; RESP 18; O2SAT 97
== END 2021-06-27 21:57 ==
PROVIDERS: Emergency Provider Emergency Medicine; PCP Nurse Practitioner Family
DX: R10.9 Unspecified abdominal pain (principal); R11.2 Nausea with vomiting, unspecified; N32.89 Other specified disorders of bladder; J44.9 Chronic obstructive pulmonary disease, unspecified; Z87.891 Personal history of nicotine dependence
CPT/HCPCS: 51702; 74177; 80053; 81001; 83690; 85025; 96361; 96374; 96375; 99284; J2270; J2405; J7040; Q9967

== ENCOUNTER 2021-09-09 12:56 | Outpatient (CLI) | payer MEDICARE, MEDICAID, SELFPAY ==
--- NOTE | 2021-09-09 13:04 | US_ITS ---
WS: [id number] Exam: US breast LT limited* [id number] Date/Time of Exam: 09/09/2021 1:43 PM Reason For Exam: LT BREAST LUMP LOWER OUTER QUADRANT The upper outer quadrant of the left breast is targeted for ultrasound evaluation. At the 2:00 position 3 cm from the nipple a hypoechoic solid lobulated nodule is seen. This is suspic ious for malignancy. This nodule measures 1.2 x 1.7 x 1 cm. There were no other discrete suspicious l esions in this area. US/US breast LT limited* [id number] IMPRESSION: 1. 1.2 x 1.7 x 1 cm hypoechoic lobulated solid nodule at the 2:00 position in t he left breast. This is suspicious for malignancy. BI-RADS Category 4B. Biopsy would be indicated for further workup.
--- NOTE | 2021-09-09 13:04 | MM_ITS ---
WS: [id number] VIEWS: MLO, CC, and ML views both breasts. 3D digital tomosynthesis is also included in this exam. Comparison made with prior exam of 04/27/2008. Findings: There is a new 1.7 x 1.3 cm ovoid irregular nodule at the 2:00 position in the left breast. There is associated architectural distortion. There may be several microcalcifications in this lesion. This is suspicious for malignancy. There were no other suspicious lesions in the right or left breast. There are several additional stable appearing nodules in both breasts.Scattered fibroglandular densities a re noted in both breasts. Regional ultrasound is recommended for further workup. MM/[place] [id number] Impression: BI-RADS: 4-Suspicious Finding-Biopsy Should Be Considered FOLLOW-UP: See Report This mammogram was also analyzed by the Computer Aided Detection System R2 Imag e Earth Science Technical Officer.
== END 2021-09-09 12:57 | disposition home or self-care (01) ==
LOC: RAD 12:57
PROVIDERS: PCP Internal Medicine; Visit Provider Nurse Practitioner Family
DX: N63.23 Unspecified lump in the left breast, lower outer quadrant (principal)
CPT/HCPCS: 76642; 77062

== ENCOUNTER 2021-09-26 13:50 | Outpatient (CLI) | payer MEDICARE, MEDICAID, SELFPAY ==
--- NOTE | 2021-09-26 14:16 | US_ITS ---
WS: [id number] ULTRASOUND-GUIDED LEFT BREAST BIOPSY CLINICAL INFORMATION: LUMP IN THE LEFT BREAST, LOWER OUTER QUADRANT COMPARISON: September 09, 2021 FINDINGS: The procedure including risks, benefits, and complications were discussed with the patient who agreed to proceed. Using sterile technique patient was prepped and draped in the usual sterile fashion. Aft er 1% lidocaine utilizing real-time ultrasound guidance 6 14-gauge cores were obtained of the LEFT br east lesion at the 2 o'clock position. Subsequently a titanium clip was placed in the biopsy cavity. No immediate complications. Pathology demonstrates A. Breast, left , core biopsy: - Invasive ductal carcinoma. - Benavidez Keys grade 3 (score 8). - Lymphovascular invasion identified - Breast prognostic profile has been performed and will be reported separately. US/[place] [id number] IMPRESSION: 1. Uncomplicated ultrasound-guided LEFT breast biopsy. 2. The pathology demonstrates INVASIVE DUCTAL CARCINOMA with lymphovascular in vasion. 3. Breast cancer prognostic profile pending. Recommend further evaluation with BREAST SURGERY CONSULTATION BI-RADS: 6-Known Biopsy-Proven Malignancy FOLLOW UP: Surgical Biopsy Recommended
[2021-09-29 10:56] LABS: Miscellaneous Test See Scanned Lab Rpt
== END 2021-09-26 13:51 | disposition home or self-care (01) ==
PROVIDERS: PCP Internal Medicine; Visit Provider Nurse Practitioner Family
DX: N63.23 Unspecified lump in the left breast, lower outer quadrant (principal); C50.512 Malignant neoplasm of lower-outer quadrant of left female breast
CPT/HCPCS: 19083; 88305; 88361; 88374

== ENCOUNTER 2021-10-04 12:08 | Oncology outpatient (recurring) (ONCR) | payer MEDICARE, MEDICAID, SELFPAY | END 2021-10-04 23:59 | disposition home or self-care (01) | PROVIDERS: PCP Internal Medicine; Visit Provider Internal Medicine Hematology & Oncology | DX: C50.912 Malignant neoplasm of unspecified site of left female breast (principal); Z17.1 Estrogen receptor negative status [ER-]; J44.9 Chronic obstructive pulmonary disease, unspecified; F17.210 Nicotine dependence, cigarettes, uncomplicated; I50.33 Acute on chronic diastolic (congestive) heart failure | CPT/HCPCS: 99204 ==

== ENCOUNTER → 2021-10-05 10:05 | Outpatient (BNVA) | payer MEDICARE, MEDICAID, SELFPAY | PROVIDERS: PCP Internal Medicine; Referring Provider Internal Medicine Hematology & Oncology; Visit Provider Surgery | DX: C50.912 Malignant neoplasm of unspecified site of left female breast (principal) | CPT/HCPCS: 99203 ==

== ENCOUNTER 2021-10-18 07:39 | Day surgery (SDC) | payer MEDICARE, MEDICAID, SELFPAY ==
[2021-10-13 12:22] VITALS: BMI 29.0
--- NOTE | 2021-10-13 12:29 | ECG_ITS ---
[facility] Test Date: 2021-10-13 Pat Name: Kimberly Mosquera Department: Room: Gender: Female Coordinator Of Evaluation: : 1950 Requested By: Ne Chaparro Order Number: [id number] Nakul MD: Chino Laguerre M.D. Measurements Intervals [place] Rate: 75 P: 28 IL: 138 QRS: 38 QRSD: 101 T: 47 QT: 350 QTc: 393 Interpretive Statements SINUS RHYTHM WITH SINUS ARRHYTHMIA Compared to ECG 05/09/2019 10:52:01 No significant changes Electronically Signed On 10-13-2021 18:59:40 CDT by Chino Laguerre M.D. [email or web address]
[2021-10-13 13:49] LABS: Basophils % 0.9 %; Hematocrit 39.3 % (37.0-47.0); Hemoglobin 12.6 g/dL (11.5-15.3); Lymphocytes # 0.7 10^3/uL (0.8-4.8); Lymphocytes % 15.6 %; Mean Corpuscular HGB Conc 32.1 g/dL (30.0-36.0); Mean Corpuscular Hemoglobin 28.6 pg (28.0-34.0); Mean Corpuscular Volume 89.1 fl (81-99); Mean Platelet Volume 10.8 fL (7.4-10.4); Monocytes # 0.3 10^3/uL (0.2-0.9); Monocytes % 6.6 %; Neutrophils # 3.24 10^3/uL (1.8-7.7); Neutrophils % 76.7 %; Nucleated Red Blood Cells % 0 %; Platelet Count 181 10^3/cmm (130-400); Red Blood Count 4.41 10^6/uL (4.1-5.3); Red Cell Distribution Width 12.2 % (12.1-15.1); White Blood Count 4.2 10^3/uL (4.0-10.0)
[2021-10-13 14:11] LABS: Anion Gap 10.5 (5-19); Blood Urea Nitrogen 9 mg/dL (8-23); Calcium 9.2 mg/dL (8.5-10.5); Carbon Dioxide 34 mmol/L (22-29); Chloride 99 mmol/L (98-107); Glucose 96 mg/dL (65-115); Osmolality Calculated 287 mOsm/kg (285-295); Potassium 4.5 mmol/L (3.5-5.1); Sodium 139 mmol/L (136-145)
--- NOTE | 2021-10-13 14:19 | ANES.PREANE2 ---
Pre-Anesthetic Assessment Height/Weight: Height 1.57 m Weight 72.121 kg Preop Diagnosis: resection Operation Date: 10/18/21 10:05 Proposed Procedures p total left mastectomy sentinel lymph node bx and port placment [id number] 41216,C50.19(Left) - Sherif Ann MD s Sentinal Lymph Node Biopsy(Left) - MD isra Adams Portacath Placement(Not Applicable) - Sherif Ann MD Familial anesthetic complications: none Was Beta Abigail taken within 24 hours: N/A Was Clonidine taken within 24 hours: N/A Social No alcohol and No tobacco Exam alert, oriented x 3 and regular rate & rhythm diminished lung sounds b/l Airway Submandibular: within normal limits Cervical ROM: within normal limits Mallampati: Class I Dentition: false and full History/ROS No significant complaints Pulmonary Chronic Obstructive Pulmonary Disease and Exertional Dyspnea Chronic respiratory failure on 4 LPM continuous NC O2 Hx of PE Hx of mediastinal lymphadenopathy CV/HEM Congestive Heart Failure and None reported Denies coronary artery disease, arrhythmia, valvular disease TTE 04/2019 CONCLUSIONS ?1-Normal left ventricular cavity size. Normal left ventricular ?systolic function. No regional wall motion abnormalities. Left ?ventricular ejection fraction is estimated at 67 %. Grade I/IV ?diastolic dysfunction (abnormal relaxation filling pattern), ?normal to mildly elevated filling pressures. ?2-No significant valve abnormalities. ?3-There is no pericardial effusion. ?4-Pulmonary artery systolic pressure is within normal limits. ?5-Right atrial pressure is around 5 mm of mercury. ?6-There are no prior echocardiogram studies to compare. None reported Hepatic None reported GI None reported Metabolic None reported Musc/skel Osteoarthritis/DJD Hx of cervical fusion Breast cancer Neuropsych Depression Anesthetic Plan ASA status: 3 (71 year old female with hx of chronic respiratory failure, smoking, lung malignancy, COPD, CHF, PE now with breast cancer scheduled for resection. ) Anesthesia: Anesthesia Evaluation and General Other: We discussed risk and benefits of general anesthesia including PONV, sore throat (sometimes severe), corneal abrasion, positioning and peripheral nerve injuries, life threatening allergic reaction, post operative ICU admission requiring prolonged intubation, stroke, heart attack, , and rare incidences of recall. Patient consents to proceed with general anesthesia. I discussed with the patient that she is at higher risk than average for post operative ICU admission requiring respiratory support and/or intubation. The patient would like to proceed. Risk of > 500 ml blood loss (7ml/kg in children): No Medications/Allergies Home Medications Medication Instructions Recorded Confirmed Last Taken Type albuterol sulfate See Rx Instructions .ROUTE .COMPLEX 04/27/19 10/13/21 Unknown History albuterol sulfate 90 mcg/actuation 2 puff INHALATION QID PRN 04/27/19 10/13/21 Unknown History aerosol inhaler (Ventolin HFA) chlorpheniramine maleate 4 mg 4 mg PO BID PRN 04/27/19 10/13/21 06/27/21 History tablet (ChlorTabs) Walking Cane #1 ea 06/26/19 10/07/21 Unknown Rx budesonide 160 mcg-glycopyr 9 2 inh INHALATION BID 06/27/21 10/13/21 Unknown History mcg-formot 4.8 mcg/actuation HFA inhaler (Breztri Aerosphere) fluticasone propionate 50 50 mcg INTRANASAL BID 06/27/21 10/13/21 Unknown History mcg/actuation nasal spray,suspension ropinirole 1 mg tablet 1 mg PO DAILY 06/27/21 10/13/21 06/27/21 History naproxen 500 mg tablet 500 mg PO BID 10/05/21 10/13/21 Unknown History Allergies Allergy/AdvReac Type Severity Reaction Status Date / Time adhesive tape Allergy Severe ALGY-Bliste Verified 10/07/21 11:07 r Penicillins Allergy ALGY-Anaphy Verified 10/07/21 11:07 laxis [facility] Anesthesia Medical History Breast cancer, left Cervical vertebral fusion Condyloma acuminata s/p excision in 11/2017 COPD (chronic obstructive pulmonary disease) Depression Osteoporosis takes Aledronate 70 mg once weekly Surgical History H/O shoulder surgery left shoulder surgery History of cervical spinal surgery History of surgery on right wrist History of total right hip arthroplasty Family History Father Alcoholic cirrhosis of liver Cancer Liver cancer Mother CAD (coronary artery disease) Cerebral hemorrhage Denies family history of Diabetes Clotting disorder Dementia Hyperlipidemia Psychiatric illness Chronic kidney disease (CKD) Suicide Anesthesia complication Bleeding disorder Lung disease Hypertension Stroke Social History Smoking and tobacco status: current every day smoker (0.25 ppd) cigarettes Packs smoked per day: 0.25 Quit status (tobacco): has quit using tobacco Year quit tobacco: 2018 - 1.5 PPD x 40 Years Second hand smoke exposure: Yes Alcohol intake: never Lives independently: Yes Household members: significant other Housing: House Current occupational status: retired and disabled History of recent travel: No Current gender identity: Female Data Anesthesia : 10/13/21 13:14 10/13/21 13:14 Short CBC 10/13/21 Range/Units 13:14 WBC 4.2 (4.0-10.0) 10^3/uL Hgb 12.6 (11.5-15.3) g/dL Hct 39.3 (37.0-47.0) % MCV 89.1 (81-99) fl Plt Count 181 (130-400) 10^3/cmm Neut % (Auto) 76.7 % Neut # (Auto) 3.24 (1.8-7.7) 10^3/uL BMP 10/13/21 13:14 Sodium 139 Potassium 4.5 Chloride 99 Carbon Dioxide 34 H BUN 9 Creatinine 0.5 Glucose 96 Calcium 9.2 Cardiac Studies: Echocardiogram Ultrasound 05/09/19
[2021-10-18] VITALS (11 sets, daily range): BP systolic 135–171; BP diastolic 59–81; PULSE 68–89; RESP 10–18; TEMP 36.1–37.4; O2SAT 94–97
--- NOTE | 2021-10-18 | SCC_ITS ---
Procedure done: 1. Placement of PowerPort catheter via the right internal jugular vein 2. Fluoroscopic guidance and interpretation for placement of catheter 3. Ultrasound guidance to access the right internal jugular vein 4.Left total mastectomy with a sentinel lymph node biopsy of the left axilla 5. Placement of 19 Scottish round Garcia drain at the mastectomy site 13.2 seconds of fluoroscopic guidance, for a cumulative dose of 1.35 mGy, was provided to Dr. Celeste by the radiology department. C-arm images of the chest were saved for the patient's permanent record. KIMBERLEYD
--- NOTE | 2021-10-18 07:50 | SC_ITS ---
WS: [id number] INTRAOPERATIVE TECHNIQUE: 4 Spot fluoroscopic images for intraoperative purposes. FLUOROSCOPY TIME: 13.2 seconds CLINICAL INFORMATION: PowerPort placement COMPARISON: None. FINDINGS: RIGHT Port-A-Cath with tip in the distal SVC. No visualized pneumothorax. Endotracheal tube with tip above the aliza. Postoperative changes cervical fusion lower cervical spine. SC/C-arm FL for CVA [id number] IMPRESSION: Images obtained for intraoperative purposes.
--- NOTE | 2021-10-18 07:56 | NM_ITS ---
WS: [id number] NUCLEAR MEDICINE SENTINEL LYMPH NODE IMAGING HISTORY: LEFT BREAST CANCER COMPARISON: Prior mammogram and ultrasound reviewed. TECHNIQUE: The patient was injected with 1.05 mCi of Technetium 99 ultra filtered sulfur colloid. Inj ection is intradermal in a periareolar location. Four aliquots are used. Injection completed at 8:20 AM. NM/NM sentinel node inject [id number] IMPRESSION: Uncomplicated LEFT breast sentinel node injection.
--- NOTE | 2021-10-18 08:06 | SUR.PREOP ---
08:00 transported to radiology by [email or web address].Remains on oxygen.
--- NOTE | 2021-10-18 08:34 | PC.NURSE ---
Left breast sentinel node injection of 1.05 mCi Tc99m Filtered Sulfur Colloid @ [address] Sary Solo.
--- NOTE | 2021-10-18 08:35 | SUR.PREOP ---
08:35 returned from radiology. remains on oxygen.
--- NOTE | 2021-10-18 08:49 | W.PM.OPSUD ---
Surgery/Procedure H&P Update DATE OF PROCEDURE: October 18, 2021 DATE H&P PERFORMED: 10/05/21 H&P UPDATE INFORMATION: I have reviewed H&P completed within last 30 days, I have examined patient prior to procedure and No changes to prior documentation PREOP DIAGNOSIS: Left breast cancer PRIMARY INDICATION FOR PROCEDURE: The same PLANNED PROCEDURE: Operation Date: 10/18/21 10:05 Proposed Procedures p total left mastectomy sentinel lymph node bx and port placment [id number] 27181,C50.19(Left) - Sherif Ann MD s Sentinal Lymph Node Biopsy(Left) - Sherif Ann MD s Portacath Placement(Not Applicable) - Sherif Ann MD
--- NOTE | 2021-10-18 09:21 | P.ANESUD_ITS ---
Pre-Anesthetic Update Pre-Anesthetic Assessment: Date of Surgery/Procedure: 10/18/21 Preop Elidia gnosis: Left breast cancer Proposed Procedure: Operation Date: 10/18/21 10:05 Proposed Procedures p total left mastectomy sentinel lymph node bx and port placment [id number],C50.19(Left) - Sherif Ann MD s Sentinal Lymph Node Biopsy(Left) - Sherif Ann MD s Portacath Placement(Not Applicable) - Sherif Ann MD Any changes to Pre-Anesthetic Assessment?: No Last Intake: Intake Last Liquid Date 10/17/21 Last Liquid Time 20:30 Last Solid Date 10/17/21 Last Solid Time 19:00 Vitals: Temperature 99.3 F 10/18/21 07:50 Temperature Source Temporal Artery S can 10/18/21 07:50 Pulse Rate 71 10/18/21 07:50 Pulse Rhythm 10/18/21 08:39 Pulse Strength 3+ Normal 10/18/21 08:39 Respiratory Rate 18 10/18/21 07:50 Blood Pressure 142/68 10/18/21 07:50 Blood Pressure Brandy n 92 10/18/21 07:50 Pulse Oximetry 97 10/18/21 07:50 Oxygen Delivery Me thod 10/18/21 08:39 Oxygen Flow Rate 4 10/18/21 07:50 Exam: Pre-Anes Outpt Exam: alert, oriented x 3 and regular rate & rhythm Additional Exam Findings (including area of procedure): B/L wheezes and coarse breath sound Cardiac Studies: Echocardiogram Ultrasound 05/09/19
[2021-10-18] MEDS: acetaminophen 1,000 MG/100 ML PIGGYBACK 400 MG IV (09:35)
[2021-10-18] MEDS: sodium chloride 0.9% 1,000 ML 30 ML IV (09:48)
[2021-10-18] MEDS: ipratropium-albuterol 3 mL Neb INHALATION (10:14)
[2021-10-18] MEDS: ipratropium-albuterol 3 mL Neb (10:17)
[2021-10-18] MEDS: levofloxacin-dextrose 5 % 500 MG/100 ML PREMIX 100 MG IV (10:30)
--- NOTE | 2021-10-18 11:00 | SUR.OPER ---
skin tear noted on left forearm while holding to drape, surgeon notified.
[2021-10-18] MEDS: lidocaine 2% INJ 20 mL INJECTION (11:26)
[2021-10-18] MEDS: heparin, porcine 1,000 unit/mL INJ 10 mL 10000 UNIT IRRIGATION (11:27)
[2021-10-18] MEDS: isosulfan blue 10 mg/mL SDV 5mL SUBCUT (11:42)
--- NOTE | 2021-10-18 12:47 | P.OP_ITS ---
Operative Report Date of procedure: October 18, 2021 Pre-op diagnosis: Preop Diagnosis Left breast cancer Post-op diagnosis: The same Procedure done: 1. Placement of PowerPort catheter via the right internal jugular vein 2. Fluoroscopic guidance and interpretation for placement of catheter 3. Ultrasound guidance to access the right internal jugular vein 4. Left total mastectomy with a sentinel lymph node biopsy of the left axilla 5. Placement of 19 Lebanese round Garcia drain at the mastectomy site. Specimens removed/disposition: [place] lymph node biopsy in vivo 194 and ex vivo 1 Left total mastectomy short sutures superior and long sutures lateral Surgeon: Sherif Ann MD Test Borer Helper: Surgical techs [place] [place] and surgical brace maker student Circulating nurse Denene Anesthesia: General (GETA VANDANA Drake/MANAGER OF CLINICAL student Miguel Angel and Dr. Stroud) Estimated blood loss (mL): 25 IV fluids (mL): 700 Procedure: Patient was identified in the holding area and taken to the operative room and placed in supine position patient was intubated by the anesthesia provider , right arm was tucked, and left arm was placed at 90 degrees. Time out was done verifying the patient's name/date of /planned procedure and destination after the procedure, all were in agreement. SCDs confirmed to be functioning, preoperative antibiotics administered per protocol, and beta mariann protocol was confirmed, appropriate positioning of the patient was done by me. Medications were reviewed to assess for anticoagulant usage. Risks and benefits and prevention of central line associated blood stream infection (CLABSI) were discussed with the patient/CPOA, and a consent was obtained. Monitors were in place and monitored throughout the procedure. All necessary supplies were available prior to start. Hand hygiene was completed prior to starting. Maximum barrier technique was utilized including a sterile gown, sterile gloves with a hat and mask. Site was was prepped with [chlorhexidine] and a full body drape was placed. 5 mL of 2% lidocaine was injected into the skin with a 25 gauge needle. Prep& drape was done under the usual sterile technique, lidocaine 2% was injected at the site of the stick and also including the left pectoral area and left upper extremity and left axilla. started by right subclavian vein were arterial blood was retrieved after 2 sticks. I decided to hold pressure for few minutes and deviated my attention to the right internal jugular vein. The right Internal Juglar vein stick that retrieved venous blood was obtained from the first stick under ultrasound guidance and there was no evidence of intraluminal thrombosis, interpretation was done by me through the whole entire procedure, a guidewire was then threaded and under the guidance of fluoroscopy position was confirmed to be in the IVC and my interpretation, there was no PVC changes, at that point the guidewire was secured to the drapes with a hemostat and the needle was taken out. Attention was then deviated towards creation of a pocket for the port were lidocaine 2% was injected using an 15 blade knife skin incision was created at the right upper Chest ,dissection using the Bovie to create a pocket for the P owerPort to be accommodated, hemostasis was secured, after the port being appropriately flushed it was inserted into the pocket and a tunneler was used to accommodate the catheter of the PowerPort to be delivered through the incision first created at the site of the stick. At that point under fluoroscopy an estimated length was measured for the catheter and was cut at the designed level, followed by that a dilator with the sheath introduced onto the guidewire the dilator and the wire were retrieved and the catheter of the port was introduced via the sheath where it was peeled off and the catheter maintained to be in the SVC that was confirmed with fluoroscopy, and the fluoroscopy interpretation was done by me throughout the entire procedure. Multiple flushes of the port was done by diluted heparin and I was able to retrieve without difficulty venous blood as well as appropriate flushing was achieved. The port was kept in its pocket by closure of the wound using 3/0 Vicryl as deep subdermal interrupted sutures, skin was then closed by 4-0 Monocryl as subcuticular closure.The port was appropriately flushed with weak heparin and venous blood was withdrawn without difficulty.The stick site was closed by 4-0 Monocryl and Dermabond was used followed by dressing. Patient tolerated the procedure well was taken to the recovery area Count was correct at the end of the procedure I was present for the whole entire procedure Now attention was deviated towards the left mastectomy Prior to bringing the patient to the OR In the nuclear medicine suite, the patient had injection. And then the patient was brought to the holding area. Few hours later, the patient was taken to the operating room after marking the left breast and axilla by myself in the holding area,and hand-held gamma probe was used to identify the location of the hottest spot in the axilla, already the patient has been prepped Lymphazurin blue dye was injected at the subareolar region, this was massaged gently for 5 minutes, again hand-held probe was used to identify the location of the hottest spot in the axilla. Prior to the incision, incision was then made over the left axilla, the probe was placed in contact with the node/stained blue, and a lymph node was excised in its entirety. Pasquale counts as follows [place] lymph node #1 in vivo 194,ex vivo 1 The above lymph node was placed in formalin and passed to the circulating nurse for permanent pathology No additional hot spots were detected, or blue lymphatics were identified. No clinically abnormal nodes were palpated. Procedure was terminated at this point. Hemostasis was achieved using small clips and Bovie cautery, after thorough irrigation of the left axilla. Attention now was deviated towards the left breast Skin incision was made that encompassed the nipple area complex and the previous biopsy scar passed in a generally transverse/oblique direction across the breast, noticed that the previous skin incision created to access the axilla was included with the same mastectomy incision. Flaps were raised in the avascular plane between the subcutaneous tissue and breast tissue from the clavicle superiorly, the sternum medially, the anterior rectus sheath inferiorly, and anterior border of the latissimus dorsi muscle laterally. Hemostasis was achieved of the flaps. Next the breast tissue underlying pectoralis fascia were excised from the pectoralis major muscle, progressing from medially to laterally in the avascular plane. At the lateral border of the pectoralis major muscle, the breast tissue was swung laterally. The medial pectoral neurovascular bundle was identified and preserved. The thoracodorsal bundle was identified and safeguarded, the long thoracic nerve then identified along the edge of the serratus anterior on the chest wall and preserved, nerve to latissimus dorsi was preserved. The specimen consisting of breast and the remaining lateral pedicle and sent for permanent pathology. Short sutures marked superior and long sutures marked lateral The wound was irrigated and hemostasis was achieved. One rounded Garcia drains 19 Lebanese were placed and brought out through the inferior flap, and was placed at the left pectoral bed and towards the axilla ,drain were stitched to the skin using 2-0 nylon wound was then closed using deep subdermal 2-0 Vicryl , followed by skin che, dry dressing, drain dressings, Telfa, fluffs on top and sports bra was applied. Counts of sponges, needles and instruments were completed at the end of the procedure. I was present for the whole entire procedure Patient was then extubated and taken to the recovery room in stable condition Counts of sponges and instruments were completed at the end of the procedure Chest x-ray was obtained after the procedure and showed the PowerPort to be in good position without complication. I was present for the whole entire procedure
--- NOTE | 2021-10-18 13:02 | XR_ITS ---
WS: [id number] CHEST XRAY TECHNIQUE: Portable chest. CLINICAL INFORMATION: post op COMPARISON: None. FINDINGS: RIGHT Port-A-Cath with tip in distal SVC. Heart: Normal cardiac silhouette. Lungs: Moderate chronic emphysematous changes. No focal pneumonia or pleural fluid. No pneumothorax Bones: Normal visualized bony structures. XR/XR chest 1V portable [id number] IMPRESSION: 1. RIGHT central venous catheter with tip in the distal SVC. 2. No pneumothorax. 3. Chronic emphysematous changes with interstitial thickening. 4. Postoperative changes lower cervical spine. 5. Evidence of postoperative changes LEFT breast.
[2021-10-18] MEDS: HYDROcodone-acetaminophen 5-325 mg Tablet 1 TAB PO (14:26)
--- NOTE | 2021-10-18 14:35 | ANE.PACU2 ---
Inpatient post-anesthesia follow up: Airway intact: Yes Vital signs: Temperature 97.1 F Pulse Rate 72 Respiratory Rate 16 Blood Pressure 135/72 Pulse Oximetry 95 Oxygen Delivery Me thod Nasal Cannula Oxygen Flow Rate 4 Fraction of Inspir ed Oxygen Hydration adequate: Yes Nausea and vomiting: No Pain level: 1 Mental status: Baseline
== END 2021-10-18 15:03 | disposition home or self-care (01) ==
PROVIDERS: Anesthesiology; PCP Internal Medicine; Visit Provider Surgery
PROC: (CPT 19303; principal; 2021-10-18 09:55)
PROC: (CPT 19303; 2021-10-18 09:55)
PROC: (CPT 19303; 2021-10-18 09:55)
DX: C50.912 Malignant neoplasm of unspecified site of left female breast (principal); J44.9 Chronic obstructive pulmonary disease, unspecified; Z99.81 Dependence on supplemental oxygen; Z86.711 Personal history of pulmonary embolism; I11.0 Hypertensive heart disease with heart failure; I50.9 Heart failure, unspecified; Z98.1 Arthrodesis status; Z85.3 Personal history of malignant neoplasm of breast; M81.0 Age-related osteoporosis without current pathological fracture; F32.9 Major depressive disorder, single episode, unspecified; F17.210 Nicotine dependence, cigarettes, uncomplicated
CPT/HCPCS: 19303; 36561; 38525; 38792; 71045; 77001; 80048; 85025; 88307; 88309; 93005; 94640; A9541; C1788; J1100; J1644; J1956; J2405; J2704; J2710; J3010; J3490; J7030; Q9968

== ENCOUNTER → 2021-10-26 15:15 | Outpatient (BNVA) | payer MEDICARE, MEDICAID, SELFPAY | PROVIDERS: PCP Internal Medicine; Visit Provider Surgery | DX: Z98.890 Other specified postprocedural states (principal); C50.912 Malignant neoplasm of unspecified site of left female breast | CPT/HCPCS: 99024 ==

== ENCOUNTER → 2021-11-02 09:55 | Outpatient (BNVA) | payer MEDICARE, MEDICAID, SELFPAY | PROVIDERS: PCP Internal Medicine; Visit Provider Surgery | DX: Z12.11 Encounter for screening for malignant neoplasm of colon (principal) | CPT/HCPCS: 99024 ==

== ENCOUNTER → 2021-11-07 10:27 | Outpatient (BNVA) | payer MEDICARE, MEDICAID, SELFPAY | PROVIDERS: PCP Internal Medicine; Visit Provider Internal Medicine Hematology & Oncology | DX: C50.912 Malignant neoplasm of unspecified site of left female breast (principal) | CPT/HCPCS: 80053; 85025 ==

== ENCOUNTER 2021-11-08 07:47 | Oncology outpatient (recurring) (ONCR) | payer MEDICARE, MEDICAID, SELFPAY | END 2021-11-08 23:59 | disposition home or self-care (01) | PROVIDERS: PCP Internal Medicine; Visit Provider Internal Medicine Hematology & Oncology | DX: J44.9 Chronic obstructive pulmonary disease, unspecified; Z99.81 Dependence on supplemental oxygen; I50.33 Acute on chronic diastolic (congestive) heart failure; F17.210 Nicotine dependence, cigarettes, uncomplicated; Z17.1 Estrogen receptor negative status [ER-]; C50.812 Malignant neoplasm of overlapping sites of left female breast; Z90.12 Acquired absence of left breast and nipple; F17.221 Nicotine dependence, chewing tobacco, in remission; Z79.899 Other long term (current) drug therapy | CPT/HCPCS: 99203; 99214; 99215 ==

== ENCOUNTER → 2021-11-23 15:17 | Outpatient (BNVA) | payer MEDICARE, MEDICAID, SELFPAY | PROVIDERS: PCP Internal Medicine; Visit Provider Surgery | DX: Z09 Encounter for follow-up examination after completed treatment for conditions other than malignant neoplasm (principal) | CPT/HCPCS: 99024 ==

== ENCOUNTER 2021-12-08 08:00 | Oncology outpatient (recurring) (ONCR) | payer MEDICARE, MEDICAID, SELFPAY ==
[2021-11-17 08:31] LABS: Basophils % 0.4 %; Hemoglobin 12.1 g/dL (11.5-15.3); Lymphocytes # 0.3 10^3/uL (0.8-4.8); Lymphocytes % 6.9 %; Mean Corpuscular HGB Conc 31.8 g/dL (30.0-36.0); Mean Corpuscular Hemoglobin 28.9 pg (28.0-34.0); Mean Corpuscular Volume 90.7 fl (81-99); Monocytes # 0.2 10^3/uL (0.2-0.9); Monocytes % 3.8 %; Neutrophils # 3.97 10^3/uL (1.8-7.7); Neutrophils % 88.7 %; Nucleated Red Blood Cells % 0 %; Platelet Count 177 10^3/cmm (130-400); Red Blood Count 4.19 10^6/uL (4.1-5.3); Red Cell Distribution Width 12.5 % (12.1-15.1); White Blood Count 4.5 10^3/uL (4.0-10.0)
[2021-11-17 08:52] LABS: Alanine Aminotransferase < 5 U/L (0-33); Albumin Level 4.3 g/dL (3.5-5.2); Alkaline Phosphatase 95 IU/L (35-105); Anion Gap 11.4 (5-19); Aspartate Amino Transferase 9 U/L (0-32); Blood Urea Nitrogen 16 mg/dL (8-23); Calcium 9.2 mg/dL (8.5-10.5); Carbon Dioxide 31 mmol/L (22-29); Chloride 97 mmol/L (98-107); Globulin 2.5 g/dL (1.3-4.6); Glucose 141 mg/dL (65-115); Osmolality Calculated 284 mOsm/kg (285-295); Potassium 4.4 mmol/L (3.5-5.1); Sodium 135 mmol/L (136-145); Total Bilirubin 0.4 mg/dL (0.15-1.2); Total Protein 6.8 g/dL (6.6-8.7)
[2021-11-17] MEDS: OLANZapine 5 mg TABLET PO (09:26)
[2021-11-17] MEDS: sodium chloride 0.9% 250 ML 100 ML IV (09:26)
[2021-11-17] MEDS: palonosetron 0.25 mg/5 mL SDV IVP (09:27)
[2021-11-17] MEDS: famotidine 20 mg/2 mL INJ IVP (09:27)
[2021-11-17] MEDS: diphenhydrAMINE 50 mg/mL SDV 1mL 25 MG IVP (09:29)
[2021-11-17] MEDS: fosaprepitant 150 MG in sodium chloride 0.9% 150 ML 300 MG IV (09:47)
[2021-11-17 13:00] VITALS: BP 145/69; PULSE 69; RESP 18; TEMP 35.6; O2SAT 99
[2021-12-08 08:15] VITALS: BMI 27.2
[2021-12-08 08:45] LABS: Basophils # 0.2 10^3/uL (0.0-0.1); Basophils % 1.8 %; Hematocrit 36.5 % (37.0-47.0); Hemoglobin 11.3 g/dL (11.5-15.3); Lymphocytes # 0.6 10^3/uL (0.8-4.8); Lymphocytes % 5.2 %; Mean Corpuscular Volume 93.6 fl (81-99); Mean Platelet Volume 9.5 fL (7.4-10.4); Monocytes # 0.6 10^3/uL (0.2-0.9); Monocytes % 5.8 %; Neutrophils # 9.54 10^3/uL (1.8-7.7); Neutrophils % 86.2 %; Nucleated Red Blood Cells % 0 %; Platelet Count 393 10^3/cmm (130-400); Red Cell Distribution Width 12.3 % (12.1-15.1); White Blood Count 11.1 10^3/uL (4.0-10.0)
[2021-12-08 09:09] LABS: Alanine Aminotransferase < 5 U/L (0-33); Albumin Level 3.7 g/dL (3.5-5.2); Alkaline Phosphatase 107 U/L (35-105); Anion Gap 10.6 (5-19); Aspartate Amino Transferase 8 U/L (0-32); Blood Urea Nitrogen 11 mg/dL (8-23); Calcium 9.6 mg/dL (8.5-10.5); Carbon Dioxide 38 mmol/L (22-29); Chloride 97 mmol/L (98-107); Globulin 2.9 g/dL (1.3-4.6); Glucose 133 mg/dL (65-115); Osmolality Calculated 293 mOsm/kg (285-295); Potassium 4.6 mmol/L (3.5-5.1); Sodium 141 mmol/L (136-145); Total Bilirubin 0.3 mg/dL (0.15-1.2); Total Protein 6.6 g/dL (6.6-8.7)
[2021-12-08] MEDS: OLANZapine 5 mg TABLET PO (10:27)
[2021-12-08] MEDS: sodium chloride 0.9% 250 ML 75 ML IV (10:27)
[2021-12-08] MEDS: famotidine 20 mg/2 mL INJ IVP (10:29)
[2021-12-08] MEDS: diphenhydrAMINE 50 mg/mL SDV 1mL 25 MG IVP (10:32)
[2021-12-08] MEDS: palonosetron 0.25 mg/5 mL SDV IVP (10:39)
[2021-12-08] MEDS: fosaprepitant 150 MG in sodium chloride 0.9% 150 ML 300 MG IV (11:05)
[2021-12-08 11:58] VITALS: BP 110/56; PULSE 83; RESP 18; O2SAT 97
[2021-12-08 12:15] VITALS: BP 128/67; PULSE 88; RESP 20; O2SAT 95
[2021-12-08 12:28] VITALS: BP 119/65; PULSE 84; RESP 18; O2SAT 97
[2021-12-08 12:45] VITALS: BP 124/57; PULSE 85; RESP 18; O2SAT 96
[2021-12-08] MEDS: cyclophosphamide 1,000 MG in sodium chloride 0.9% 500 ML 500 MG IV (12:51)
[2021-12-08] MEDS: pegfilgrastim 6 mg/0.6 mL Kit (onpro) SUBCUT (14:13)
[2021-12-08 14:30] VITALS: BP 112/61; PULSE 90; RESP 18; TEMP 37.2; O2SAT 95
== END 2021-12-14 23:59 | disposition home or self-care (01) ==
PROVIDERS: Nurse Practitioner Family; PCP Internal Medicine; Visit Provider Internal Medicine Hematology & Oncology
DX: Z51.11 Encounter for antineoplastic chemotherapy (principal); C50.412 Malignant neoplasm of upper-outer quadrant of left female breast; Z79.52 Long term (current) use of systemic steroids; Z79.899 Other long term (current) drug therapy; Z99.81 Dependence on supplemental oxygen; J44.9 Chronic obstructive pulmonary disease, unspecified; F17.210 Nicotine dependence, cigarettes, uncomplicated; Z17.1 Estrogen receptor negative status [ER-]; K13.79 Other lesions of oral mucosa; T45.1X5A Adverse effect of antineoplastic and immunosuppressive drugs, initial encounter; Z51.12 Encounter for antineoplastic immunotherapy
CPT/HCPCS: 80053; 85025; 96367; 96375; 96401; 96413; 96417; 99214; 99215; J1100; J1200; J1453; J2469; J2506; J3490; J7040; J7050; J9070; J9171

== ENCOUNTER 2021-12-22 08:30 | Oncology outpatient (recurring) (ONCR) | payer MEDICARE, MEDICAID, SELFPAY ==
[2021-12-15 08:45] VITALS: BMI 26.7
[2021-12-15 08:49] LABS: Basophils % 7.7 %; Hematocrit 28.8 % (37.0-47.0); Lymphocytes # 0.1 10^3/uL (0.8-4.8); Lymphocytes % 30.8 %; Mean Corpuscular HGB Conc 31.3 g/dL (30.0-36.0); Mean Corpuscular Hemoglobin 28.7 pg (28.0-34.0); Mean Corpuscular Volume 91.7 fl (81-99); Monocytes # 0.1 10^3/uL (0.2-0.9); Monocytes % 42.3 %; Neutrophils % 19.2 %; Nucleated Red Blood Cells % 0 %; Platelet Count 75 10^3/cmm (130-400); Red Blood Count 3.14 10^6/uL (4.1-5.3); Red Cell Distribution Width 12.4 % (12.1-15.1)
[2021-12-15 09:17] LABS: Alanine Aminotransferase < 5 U/L (0-33); Albumin Level 3.4 g/dL (3.5-5.2); Alkaline Phosphatase 88 U/L (35-105); Anion Gap 9.3 (5-19); Aspartate Amino Transferase 7 U/L (0-32); Blood Urea Nitrogen 9 mg/dL (8-23); Calcium 9.1 mg/dL (8.5-10.5); Carbon Dioxide 36 mmol/L (22-29); Chloride 97 mmol/L (98-107); Globulin 2.5 g/dL (1.3-4.6); Glucose 130 mg/dL (65-115); Osmolality Calculated 286 mOsm/kg (285-295); Potassium 4.3 mmol/L (3.5-5.1); Sodium 138 mmol/L (136-145); Total Bilirubin 0.7 mg/dL (0.15-1.2); Total Protein 5.9 g/dL (6.6-8.7)
[2021-12-15 09:19] LABS: Creatinine Clr Calc Pharmacy 55.9565
[2021-12-15 09:43] LABS: Neutrophils # 0.05 10^3/uL (1.8-7.7); Slide Review Slide Review Perform; White Blood Count 0.3 10^3/uL (4.0-10.0)
[2021-12-22 09:22] LABS: Basophils # 0.1 10^3/uL (0.0-0.1); Basophils % 0.6 %; Hematocrit 31.5 % (37.0-47.0); Hemoglobin 9.6 g/dL (11.5-15.3); Lymphocytes # 0.5 10^3/uL (0.8-4.8); Lymphocytes % 4.2 %; Mean Corpuscular HGB Conc 30.5 g/dL (30.0-36.0); Mean Corpuscular Volume 91.8 fl (81-99); Mean Platelet Volume 9.5 fL (7.4-10.4); Monocytes # 0.6 10^3/uL (0.2-0.9); Monocytes % 4.5 %; Neutrophils # 10.37 10^3/uL (1.8-7.7); Neutrophils % 85.4 %; Nucleated Red Blood Cells % 0 %; Platelet Count 301 10^3/cmm (130-400); Red Blood Count 3.43 10^6/uL (4.1-5.3); Red Cell Distribution Width 13.2 % (12.1-15.1); White Blood Count 12.2 10^3/uL (4.0-10.0)
[2021-12-22 09:52] LABS: Alanine Aminotransferase 7 U/L (0-33); Albumin Level 3.6 g/dL (3.5-5.2); Alkaline Phosphatase 144 U/L (35-105); Anion Gap 10.6 (5-19); Aspartate Amino Transferase 8 U/L (0-32); Blood Urea Nitrogen 6 mg/dL (8-23); Calcium 8.6 mg/dL (8.5-10.5); Carbon Dioxide 37 mmol/L (22-29); Chloride 91 mmol/L (98-107); Creatinine Clr Calc Pharmacy 55.9565; Globulin 2.4 g/dL (1.3-4.6); Glucose 106 mg/dL (65-115); Osmolality Calculated 278 mOsm/kg (285-295); Potassium 3.6 mmol/L (3.5-5.1); Sodium 135 mmol/L (136-145); Total Bilirubin 0.2 mg/dL (0.15-1.2)
[2021-12-22 09:55] LABS: Slide Review Slide Review Perform
[2021-12-22 15:20] LABS: Ferritin 390 ng/mL (15-150); Iron 30 ug/dL (37-145); Percent Saturation 17.5 % (20-50); Total Iron Binding Capacity 171 mcg/dl; Unsaturated Iron Binding 141 ug/dL (112-347)
[2021-12-22 15:36] LABS: Vitamin B12 1697 pg/mL (232-1245)
[2022-01-13 18:38] LABS: BRCA 1 & 2 Clinical Interpreta NEGATIVE; BRCA 1&2 Result NEGATIVE
== END 2022-01-13 23:59 | disposition home or self-care (01) ==
PROVIDERS: Nurse Practitioner; Nurse Practitioner Family; PCP Internal Medicine; Visit Provider Internal Medicine Hematology & Oncology
DX: C50.812 Malignant neoplasm of overlapping sites of left female breast; Z17.1 Estrogen receptor negative status [ER-]; Z90.12 Acquired absence of left breast and nipple; J44.9 Chronic obstructive pulmonary disease, unspecified; Z99.81 Dependence on supplemental oxygen; D64.9 Anemia, unspecified; R53.1 Weakness; R53.0 Neoplastic (malignant) related fatigue; Z79.899 Other long term (current) drug therapy; Z92.21 Personal history of antineoplastic chemotherapy; F17.210 Nicotine dependence, cigarettes, uncomplicated
CPT/HCPCS: 36415; 36591; 80053; 81162; 82607; 82728; 83540; 83550; 85025; 99214

== ENCOUNTER 2022-01-24 12:18 | Oncology outpatient (recurring) (ONCR) | payer MEDICARE, MEDICAID, SELFPAY ==
[2022-01-24 13:01] LABS: Alanine Aminotransferase < 5 U/L (0-33); Albumin Level 3.7 g/dL (3.5-5.2); Alkaline Phosphatase 89 U/L (35-105); Anion Gap 10.6 (5-19); Aspartate Amino Transferase 7 U/L (0-32); Blood Urea Nitrogen 11 mg/dL (8-23); Calcium 8.9 mg/dL (8.5-10.5); Carbon Dioxide 32 mmol/L (22-29); Chloride 99 mmol/L (98-107); Globulin 2.7 g/dL (1.3-4.6); Glucose 91 mg/dL (65-115); Osmolality Calculated 283 mOsm/kg (285-295); Potassium 4.6 mmol/L (3.5-5.1); Sodium 137 mmol/L (136-145); Total Bilirubin 0.2 mg/dL (0.15-1.2); Total Protein 6.4 g/dL (6.6-8.7)
[2022-01-24 13:07] LABS: Basophils % 1.1 %; Hematocrit 33.7 % (37.0-47.0); Hemoglobin 10.3 g/dL (11.5-15.3); Lymphocytes # 0.8 10^3/uL (0.8-4.8); Mean Corpuscular HGB Conc 30.6 g/dL (30.0-36.0); Mean Corpuscular Hemoglobin 28.5 pg (28.0-34.0); Mean Corpuscular Volume 93.1 fl (81-99); Mean Platelet Volume 10.1 fL (7.4-10.4); Monocytes # 0.3 10^3/uL (0.2-0.9); Monocytes % 9.3 %; Neutrophils # 2.36 10^3/uL (1.8-7.7); Neutrophils % 66.3 %; Nucleated Red Blood Cells % 0 %; Platelet Count 172 10^3/cmm (130-400); Red Blood Count 3.62 10^6/uL (4.1-5.3); Red Cell Distribution Width 13.6 % (12.1-15.1); White Blood Count 3.6 10^3/uL (4.0-10.0)
== END 2022-02-13 23:59 | disposition home or self-care (01) ==
PROVIDERS: PCP Internal Medicine; Visit Provider Internal Medicine Hematology & Oncology
DX: Z17.1 Estrogen receptor negative status [ER-]; Z90.12 Acquired absence of left breast and nipple; J44.9 Chronic obstructive pulmonary disease, unspecified; Z99.81 Dependence on supplemental oxygen; F17.210 Nicotine dependence, cigarettes, uncomplicated; C50.412 Malignant neoplasm of upper-outer quadrant of left female breast; Z79.899 Other long term (current) drug therapy; Z92.21 Personal history of antineoplastic chemotherapy
CPT/HCPCS: 36591; 80053; 85025; 99214

== ENCOUNTER 2022-02-24 07:59 | Oncology outpatient (recurring) (ONCR) | payer MEDICARE, MEDICAID, SELFPAY ==
[2022-02-24 08:19] LABS: Basophils % 0.6 %; Hematocrit 36.6 % (37.0-47.0); Hemoglobin 11.5 g/dL (11.5-15.3); Lymphocytes # 0.4 10^3/uL (0.8-4.8); Lymphocytes % 13.6 %; Mean Corpuscular HGB Conc 31.4 g/dL (30.0-36.0); Mean Corpuscular Hemoglobin 28.9 pg (28.0-34.0); Mean Platelet Volume 9.1 fL (7.4-10.4); Monocytes # 0.2 10^3/uL (0.2-0.9); Monocytes % 7.4 %; Neutrophils # 2.53 10^3/uL (1.8-7.7); Neutrophils % 78.1 %; Nucleated Red Blood Cells % 0 %; Platelet Count 142 10^3/cmm (130-400); Red Blood Count 3.98 10^6/uL (4.1-5.3); Red Cell Distribution Width 12.5 % (12.1-15.1); White Blood Count 3.2 10^3/uL (4.0-10.0)
== END 2022-03-15 23:59 | disposition home or self-care (01) ==
PROVIDERS: PCP Internal Medicine; Visit Provider Internal Medicine Hematology & Oncology
DX: C50.412 Malignant neoplasm of upper-outer quadrant of left female breast (principal); Z17.1 Estrogen receptor negative status [ER-]; Z90.12 Acquired absence of left breast and nipple; J44.9 Chronic obstructive pulmonary disease, unspecified; Z99.81 Dependence on supplemental oxygen; F17.210 Nicotine dependence, cigarettes, uncomplicated; D72.819 Decreased white blood cell count, unspecified; Z79.899 Other long term (current) drug therapy; Z92.21 Personal history of antineoplastic chemotherapy
CPT/HCPCS: 36591; 85025; 99214

== ENCOUNTER 2022-03-29 13:14 | Oncology outpatient (recurring) (ONCR) | payer MEDICARE, MEDICAID, SELFPAY | END 2022-04-15 23:59 | disposition home or self-care (01) | LOC: ONCMED 13:15 | PROVIDERS: PCP Nurse Practitioner Family; Visit Provider Internal Medicine Hematology & Oncology | DX: Z45.2 Encounter for adjustment and management of vascular access device; Z95.828 Presence of other vascular implants and grafts | CPT/HCPCS: 96523 ==

== ENCOUNTER 2022-05-01 13:07 | Oncology outpatient (recurring) (ONCR) | payer MEDICARE, MEDICAID, SELFPAY | END 2022-05-16 23:59 | disposition home or self-care (01) | PROVIDERS: PCP Nurse Practitioner Family; Visit Provider Internal Medicine Hematology & Oncology | DX: C50.412 Malignant neoplasm of upper-outer quadrant of left female breast (principal); Z17.1 Estrogen receptor negative status [ER-]; Z45.2 Encounter for adjustment and management of vascular access device | CPT/HCPCS: 96523 ==

== ENCOUNTER 2022-05-29 12:58 | Oncology outpatient (recurring) (ONCR) | payer MEDICARE, MEDICAID, SELFPAY ==
[2022-05-29 13:32] LABS: Basophils % 0.6 %; Hematocrit 35.1 % (37.0-47.0); Hemoglobin 11.1 g/dL (11.5-15.3); Lymphocytes # 0.6 10^3/uL (0.8-4.8); Lymphocytes % 15.9 %; Mean Corpuscular HGB Conc 31.6 g/dL (30.0-36.0); Mean Corpuscular Hemoglobin 28.2 pg (28.0-34.0); Mean Corpuscular Volume 89.3 fl (81-99); Mean Platelet Volume 9.8 fL (7.4-10.4); Monocytes # 0.3 10^3/uL (0.2-0.9); Monocytes % 8.7 %; Neutrophils # 2.59 10^3/uL (1.8-7.7); Neutrophils % 74.8 %; Nucleated Red Blood Cells % 0 %; Platelet Count 163 10^3/cmm (130-400); Red Blood Count 3.93 10^6/uL (4.1-5.3); Red Cell Distribution Width 12.9 % (12.1-15.1); White Blood Count 3.5 10^3/uL (4.0-10.0)
[2022-05-29 14:06] LABS: Alanine Aminotransferase < 5 U/L (0-33); Albumin Level 3.9 g/dL (3.5-5.2); Alkaline Phosphatase 93 U/L (35-105); Anion Gap 10.3 (5-19); Aspartate Amino Transferase 10 U/L (0-32); Blood Urea Nitrogen 11 mg/dL (8-23); CA 15-3 7.9 U/mL (0-25); Carbon Dioxide 32 mmol/L (22-29); Chloride 100 mmol/L (98-107); Globulin 2.4 g/dL (1.3-4.6); Glucose 83 mg/dL (65-115); Osmolality Calculated 285 mOsm/kg (285-295); Potassium 4.3 mmol/L (3.5-5.1); Sodium 138 mmol/L (136-145); Total Bilirubin 0.3 mg/dL (0.15-1.2); Total Protein 6.3 g/dL (6.6-8.7)
[2022-05-29 17:45] LABS: Ferritin 86 ng/mL (15-150); Iron 33 ug/dL (37-145); Percent Saturation 16.6 % (20-50); Total Iron Binding Capacity 198 mcg/dl; Unsaturated Iron Binding 165 ug/dL (112-347)
[2022-05-31 03:26] LABS: CA 27.29 13 U/mL (<38)
== END 2022-06-13 23:59 | disposition home or self-care (01) ==
LOC: ONCMED 12:59
PROVIDERS: PCP Nurse Practitioner Family; Visit Provider Internal Medicine Hematology & Oncology
DX: C50.412 Malignant neoplasm of upper-outer quadrant of left female breast (principal); Z17.1 Estrogen receptor negative status [ER-]; Z90.12 Acquired absence of left breast and nipple; J44.9 Chronic obstructive pulmonary disease, unspecified; Z99.81 Dependence on supplemental oxygen; F17.210 Nicotine dependence, cigarettes, uncomplicated; D72.819 Decreased white blood cell count, unspecified; Z79.899 Other long term (current) drug therapy; Z92.21 Personal history of antineoplastic chemotherapy; R07.89 Other chest pain
CPT/HCPCS: 36591; 80053; 82728; 83540; 83550; 85025; 86300; 99214

== ENCOUNTER 2022-06-12 09:05 | Outpatient (CLI) | payer MEDICARE, MEDICAID, SELFPAY ==
--- NOTE | 2022-06-12 09:39 | NM_ITS ---
WS: [id number] NUCLEAR MEDICINE BONE SCAN Radiopharmaceutical: 25.4 Tc-99m MDP mCi IV Injection site: antecubital Postinjection imaging delay: 1 hr CLINICAL INFORMATION: Chest wall pain COMPARISON: None. FINDINGS: Bone lesions: There are no osseous lesions suspicious for metastatic disease. Soft tissue contours: Normal. Kidneys: Normal. Other findings: Mild degenerative arthritis AC joints. Mild thoracolumbar curve. RIGHT BRANDAN. NM/NM bone scan whole body* [id number] IMPRESSION: No evidence of osseous metastatic disease.
--- NOTE | 2022-06-12 12:00 | CT_ITS ---
WS: [id number] CT CHEST AND ABDOMEN WITH CONTRAST HISTORY: Chest wall pain, history of breast cancer. LEFT chest wall pain. TECHNIQUE: Axial imaging is performed through the chest and abdomen with IV contrast. Sagittal and co lizbet reformats. All CT scans at [facility] use at least one of these dose optimization techn iques: automated exposure control; mA and/or kV adjustment per patient size (includes targeted exams where dose is matched to clinical indication); or iterative reconstruction. CONTRAST: Omnipaque 350; 95 mL IV. DLP: 905.05 mGy.cm COMPARISON: 06/27/2021, bone scan 06/12/[address]: Marked pulmonary hyperexpansion from emphysema. Mild tree-in-bud airspace disease RIGHT lower lobe wi th mild reticular thickening. Mild atherosclerosis aorta with no aneurysm. Normal size pulmonary alex ry. No mediastinal or hilar lymph nodes. Normal size heart. No pericardial or pleural effusions. RIGHT jugular line. Tip of the line extends into the distal SVC. LEFT mastectomy. There is no recurre nt mass identified at the mastectomy site. No postoperative collection. No axillary lymph nodes. No b one or rib destruction. Abdomen CT: Liver and spleen are normal. No metastatic disease within the liver. Only distended gallbladder with cholelithiasis. No acute cholecystitis. Mild pancreatic atrophy with no duct dilatation. No adrenal m ass. Bilateral renal cysts. The largest upper pole LEFT kidney measures 3.2 x 2.8 cm. Atherosclerosis aorta. Visualized GI tract within the upper abdomen is negative. There is no obstruction or wall thickening. There are a few diverticula noted within the visualized colon. No adenopathy or ascites. No destructive bone lesions. Mild anterior wedging of T7, T2 and T3. CT/CT chest abdomen w con* IMPRESSION: 1. No mass or abnormality noted within the LEFT chest wall at the site of the mastectomy. 2. No axillary or mediastinal adenopathy. 3. No pulmonary nodules. Mild RIGHT lower lobe tree-in-bud airspace disease co nsistent with endobronchial pneumonia. 4. Liver and adrenal glands are negative. 5. Cholelithiasis without acute cholecystitis. 6. Mild anterior wedging of T2, T3 and T7. T2 and T3 anterior wedging is [place] 06/17/2019.
[2022-06-12] MEDS: iohexol 350 mg/mL 500 mL Btl (per mL) IV (13:10)
== END 2022-06-12 09:06 | disposition home or self-care (01) ==
LOC: RAD 09:08
PROVIDERS: PCP Nurse Practitioner Family; Visit Provider Internal Medicine Hematology & Oncology
DX: C50.912 Malignant neoplasm of unspecified site of left female breast (principal); R07.89 Other chest pain
CPT/HCPCS: 71260; 74160; 78306; A9561; Q9967

== ENCOUNTER 2022-06-21 | Outpatient (CLI) | payer MEDICARE, MEDICAID, SELFPAY | END 2022-06-21 23:00 | disposition home or self-care (01) | LOC: LAB 09-19 13:07 | PROVIDERS: PCP Nurse Practitioner Family; Visit Provider Internal Medicine Hematology & Oncology | DX: C50.912 Malignant neoplasm of unspecified site of left female breast (principal); J44.9 Chronic obstructive pulmonary disease, unspecified; Z95.828 Presence of other vascular implants and grafts | CPT/HCPCS: 36591; 80053; 85025 ==

== ENCOUNTER → 2022-06-21 12:59 | Outpatient (BNVA) | payer MEDICARE, MEDICAID, SELFPAY | PROVIDERS: PCP Nurse Practitioner Family; Visit Provider Nurse Practitioner | DX: Z08 Encounter for follow-up examination after completed treatment for malignant neoplasm (principal); Z85.3 Personal history of malignant neoplasm of breast; Z90.12 Acquired absence of left breast and nipple; J44.9 Chronic obstructive pulmonary disease, unspecified; Z99.81 Dependence on supplemental oxygen; Z92.21 Personal history of antineoplastic chemotherapy; F17.210 Nicotine dependence, cigarettes, uncomplicated | CPT/HCPCS: 99214 ==

== ENCOUNTER 2022-07-24 10:52 | Oncology outpatient (recurring) (ONCR) | payer MEDICARE, MEDICAID, SELFPAY ==
[2022-06-21 14:09] LABS: Basophils % 0.6 %; Hematocrit 36.3 % (37.0-47.0); Hemoglobin 11.3 g/dL (11.5-15.3); Lymphocytes # 0.7 10^3/uL (0.8-4.8); Lymphocytes % 13.7 %; Mean Corpuscular HGB Conc 31.1 g/dL (30.0-36.0); Mean Corpuscular Hemoglobin 28.5 pg (28.0-34.0); Mean Corpuscular Volume 91.4 fl (81-99); Mean Platelet Volume 9.6 fL (7.4-10.4); Monocytes # 0.4 10^3/uL (0.2-0.9); Monocytes % 7.4 %; Neutrophils # 3.69 10^3/uL (1.8-7.7); Neutrophils % 78.1 %; Nucleated Red Blood Cells % 0 %; Platelet Count 165 10^3/cmm (130-400); Red Blood Count 3.97 10^6/uL (4.1-5.3); Red Cell Distribution Width 12.5 % (12.1-15.1); White Blood Count 4.7 10^3/uL (4.0-10.0)
[2022-06-21 14:26] LABS: Alanine Aminotransferase < 5 U/L (0-33); Albumin Level 3.8 g/dL (3.5-5.2); Alkaline Phosphatase 79 U/L (35-105); Anion Gap 11.5 (5-19); Aspartate Amino Transferase 10 U/L (0-32); Blood Urea Nitrogen 10 mg/dL (8-23); Calcium 8.5 mg/dL (8.5-10.5); Carbon Dioxide 31 mmol/L (22-29); Chloride 96 mmol/L (98-107); Globulin 2.6 g/dL (1.3-4.6); Glucose 73 mg/dL (65-115); Osmolality Calculated 276 mOsm/kg (285-295); Potassium 4.5 mmol/L (3.5-5.1); Sodium 134 mmol/L (136-145); Total Bilirubin 0.2 mg/dL (0.15-1.2); Total Protein 6.4 g/dL (6.6-8.7)
[2022-07-24 11:15] VITALS: PULSE 65; RESP 18; TEMP 36.7; O2SAT 99
== END 2022-08-13 23:59 | disposition home or self-care (01) ==
LOC: ONCMED 10:52
PROVIDERS: PCP Nurse Practitioner Family; Visit Provider Internal Medicine Hematology & Oncology
DX: Z45.2 Encounter for adjustment and management of vascular access device (principal)
CPT/HCPCS: 36591; 80053; 85025; 96523

== ENCOUNTER 2022-08-23 10:58 | Oncology outpatient (recurring) (ONCR) | payer MEDICARE, MEDICAID, SELFPAY ==
[2022-08-23 11:17] VITALS: BP 142/64; PULSE 87; RESP 20; TEMP 36.4; O2SAT 98
== END 2022-09-13 23:59 | disposition home or self-care (01) ==
LOC: ONCMED 10:58
PROVIDERS: PCP Nurse Practitioner Family; Visit Provider Internal Medicine Hematology & Oncology
DX: Z45.2 Encounter for adjustment and management of vascular access device (principal)
CPT/HCPCS: 96523; J1642

== ENCOUNTER 2022-09-22 07:31 | Oncology outpatient (recurring) (ONCR) | payer MEDICARE, MEDICAID, SELFPAY ==
[2022-09-22 08:00] LABS: Basophils % 0.3 %; Hematocrit 37.1 % (37.0-47.0); Hemoglobin 11.6 g/dL (11.5-15.3); Lymphocytes # 0.5 10^3/uL (0.8-4.8); Lymphocytes % 15.3 %; Mean Corpuscular HGB Conc 31.3 g/dL (30.0-36.0); Mean Corpuscular Hemoglobin 28.5 pg (28.0-34.0); Mean Corpuscular Volume 91.2 fl (81-99); Monocytes # 0.4 10^3/uL (0.2-0.9); Monocytes % 9.9 %; Neutrophils # 2.62 10^3/uL (1.8-7.7); Neutrophils % 74.2 %; Nucleated Red Blood Cells % 0 %; Platelet Count 151 10^3/cmm (130-400); Red Blood Count 4.07 10^6/uL (4.1-5.3); Red Cell Distribution Width 12.2 % (12.1-15.1); White Blood Count 3.5 10^3/uL (4.0-10.0)
[2022-09-22 08:26] LABS: Alanine Aminotransferase < 5 U/L (0-33); Alkaline Phosphatase 87 U/L (35-105); Anion Gap 10.2 (5-19); Aspartate Amino Transferase 11 U/L (0-32); Blood Urea Nitrogen 11 mg/dL (8-23); Carbon Dioxide 32 mmol/L (22-29); Chloride 100 mmol/L (98-107); Globulin 2.2 g/dL (1.3-4.6); Glucose 99 mg/dL (65-115); Osmolality Calculated 285 mOsm/kg (285-295); Potassium 4.2 mmol/L (3.5-5.1); Sodium 138 mmol/L (136-145); Total Bilirubin 0.4 mg/dL (0.15-1.2); Total Protein 6.2 g/dL (6.6-8.7)
== END 2022-10-13 23:59 | disposition home or self-care (01) ==
PROVIDERS: Nurse Practitioner; PCP Nurse Practitioner Family; Visit Provider Internal Medicine Hematology & Oncology
DX: Z45.2 Encounter for adjustment and management of vascular access device (principal); C50.412 Malignant neoplasm of upper-outer quadrant of left female breast; Z17.1 Estrogen receptor negative status [ER-]; Z90.12 Acquired absence of left breast and nipple; J44.9 Chronic obstructive pulmonary disease, unspecified; Z99.81 Dependence on supplemental oxygen; F17.210 Nicotine dependence, cigarettes, uncomplicated; D72.819 Decreased white blood cell count, unspecified; Z79.899 Other long term (current) drug therapy; Z92.21 Personal history of antineoplastic chemotherapy; R07.89 Other chest pain; C50.912 Malignant neoplasm of unspecified site of left female breast
CPT/HCPCS: 36591; 80053; 85025; 99214

== ENCOUNTER 2023-01-24 12:27 | Oncology outpatient (recurring) (ONCR) | payer MEDICARE, MEDICAID, SELFPAY ==
[2023-01-24 12:35] VITALS: BP 127/78; PULSE 95; RESP 16; O2SAT 96
[2023-01-24 12:51] LABS: Basophils % 0.6 %; Lymphocytes # 0.7 10^3/uL (0.8-4.8); Lymphocytes % 14.5 %; Mean Corpuscular HGB Conc 31.5 g/dL (30-55); Mean Corpuscular Hemoglobin 28.7 pg (27-33); Mean Corpuscular Volume 91.1 fl (85-98); Mean Platelet Volume 9.6 fL (7.4-10.4); Monocytes # 0.4 10^3/uL (0.2-0.9); Neutrophils # 3.55 10^3/uL (1.8-7.7); Neutrophils % 75.7 %; Nucleated Red Blood Cells % 0 %; Platelet Count 179 10^3/cmm (157-399); Red Blood Count 4.39 10^6/uL (3.85-5.65); Red Cell Distribution Width 12.3 % (12.1-15.1); White Blood Count 4.69 10^3/uL (3.29-11.43)
[2023-01-24 13:13] LABS: Alanine Aminotransferase < 5 U/L (0-33); Albumin Level 3.9 g/dL (3.5-5.2); Alkaline Phosphatase 97 U/L (35-105); Anion Gap 10.2 (5-19); Aspartate Amino Transferase 9 U/L (0-32); Blood Urea Nitrogen 8 mg/dL (8-23); Calcium 9.4 mg/dL (8.5-10.5); Carbon Dioxide 36 mmol/L (22-29); Chloride 95 mmol/L (98-107); Globulin 3.2 g/dL (1.3-4.6); Glucose 83 mg/dL (65-115); Osmolality Calculated 281 mOsm/kg (285-295); Potassium 4.2 mmol/L (3.5-5.1); Sodium 137 mmol/L (136-145); Total Bilirubin 0.3 mg/dL (0.15-1.2); Total Protein 7.1 g/dL (6.6-8.7)
== END 2023-02-13 23:59 | disposition home or self-care (01) ==
PROVIDERS: Internal Medicine Medical Oncology; PCP Nurse Practitioner Family; Visit Provider Internal Medicine Hematology & Oncology
DX: C50.912 Malignant neoplasm of unspecified site of left female breast; Z17.1 Estrogen receptor negative status [ER-]; J44.9 Chronic obstructive pulmonary disease, unspecified
CPT/HCPCS: 36415; 80053; 85025; 99214

== ENCOUNTER 2023-05-02 09:23 | Outpatient (CLI) | payer MEDICARE, MEDICAID, SELFPAY ==
--- NOTE | 2023-05-02 09:30 | MM_ITS ---
WS: [id number] DIAGNOSTIC RIGHT DIGITAL TOMOSYNTHESIS MAMMOGRAPHY WITH CAD. HISTORY: history of breast cancer; LT MST COMPARISON: 09/09/2021 and 04/27/2008 Technique: CC, MLO and ML views. Breast composition: There are scattered areas of fibroglandular density. No suspicious mass or calcif ications. No nipple retraction. IMPRESSION: MM/[place] [id number] BI-RADS: 2-Benign FOLLOW UP: 1 Year Follow-up
== END 2023-05-02 09:24 | disposition home or self-care (01) ==
LOC: RAD 09:23
PROVIDERS: PCP Nurse Practitioner Family; Visit Provider Nurse Practitioner Family
DX: Z85.3 Personal history of malignant neoplasm of breast (principal); Z90.12 Acquired absence of left breast and nipple; R92.321 Mammographic fibroglandular density, right breast
CPT/HCPCS: 77061; G0279

== ENCOUNTER 2023-08-01 11:36 | Oncology outpatient (recurring) (ONCR) | payer MEDICARE, MEDICAID, SELFPAY ==
[2023-08-01 12:24] VITALS: BP 147/76; PULSE 71; RESP 18; TEMP 36.6; O2SAT 94
[2023-08-01 12:38] LABS: Basophils % 0.8 %; Hematocrit 36.4 % (36-47); Lymphocytes # 0.5 10^3/uL (0.8-4.8); Lymphocytes % 13.8 %; Mean Corpuscular HGB Conc 32.7 g/dL (30-55); Mean Corpuscular Hemoglobin 30.9 pg (27-33); Mean Corpuscular Volume 94.5 fl (85-98); Mean Platelet Volume 9.5 fL (7.4-10.4); Monocytes # 0.2 10^3/uL (0.2-0.9); Monocytes % 6.3 %; Neutrophils # 2.98 10^3/uL (1.8-7.7); Neutrophils % 78.8 %; Nucleated Red Blood Cells % 0 %; Platelet Count 151 10^3/cmm (157-399); Red Blood Count 3.85 10^6/uL (3.85-5.65); White Blood Count 3.78 10^3/uL (3.29-11.43)
[2023-08-01 12:54] LABS: Alanine Aminotransferase < 5 U/L (0-33); Albumin Level 4.1 g/dL (3.5-5.2); Alkaline Phosphatase 77 U/L (35-105); Anion Gap 10.1 (5-19); Aspartate Amino Transferase 9 U/L (0-32); Blood Urea Nitrogen 11 mg/dL (8-23); Carbon Dioxide 33 mmol/L (22-29); Chloride 95 mmol/L (98-107); Creatinine Clr Calc Pharmacy 58.4196; Globulin 2.6 g/dL (1.3-4.6); Glucose 87 mg/dL (65-115); Osmolality Calculated 277 mOsm/kg (285-295); Potassium 4.1 mmol/L (3.5-5.1); Sodium 134 mmol/L (136-145); Total Bilirubin 0.5 mg/dL (0.15-1.2); Total Protein 6.7 g/dL (6.6-8.7)
== END 2023-08-14 23:59 | disposition home or self-care (01) ==
PROVIDERS: Internal Medicine Medical Oncology; PCP Nurse Practitioner Family; Visit Provider Internal Medicine Hematology & Oncology
DX: C50.912 Malignant neoplasm of unspecified site of left female breast (principal); Z17.1 Estrogen receptor negative status [ER-]; J44.9 Chronic obstructive pulmonary disease, unspecified; R59.0 Localized enlarged lymph nodes; Z79.899 Other long term (current) drug therapy
CPT/HCPCS: 36415; 80053; 85025; 99214

== ENCOUNTER 2024-01-28 13:07 | Oncology outpatient (recurring) (ONCR) | payer MEDICARE, MEDICAID, SELFPAY ==
[2024-01-28 13:39] LABS: Basophils % 0.5 %; Hematocrit 36.7 % (36-47); Lymphocytes # 0.5 10^3/uL (0.8-4.8); Lymphocytes % 7.5 %; Mean Corpuscular HGB Conc 32.4 g/dL (30-55); Mean Corpuscular Hemoglobin 30.4 pg (27-33); Mean Corpuscular Volume 93.9 fl (85-98); Mean Platelet Volume 10.1 fL (7.4-10.4); Monocytes # 0.2 10^3/uL (0.2-0.9); Monocytes % 3.4 %; Neutrophils # 5.69 10^3/uL (1.8-7.7); Neutrophils % 88.3 %; Nucleated Red Blood Cells % 0 %; Platelet Count 131 10^3/cmm (157-399); Red Blood Count 3.91 10^6/uL (3.85-5.65); Red Cell Distribution Width 13.5 % (12.1-15.1); White Blood Count 6.44 10^3/uL (3.29-11.43)
[2024-01-28 13:55] LABS: Alanine Aminotransferase < 5 U/L (0-33); Albumin Level 3.8 g/dL (3.5-5.2); Alkaline Phosphatase 77 U/L (35-105); Anion Gap 13.3 (5-19); Aspartate Amino Transferase 9 U/L (0-32); Blood Urea Nitrogen 11 mg/dL (8-23); Calcium 8.8 mg/dL (8.5-10.5); Carbon Dioxide 32 mmol/L (22-29); Chloride 95 mmol/L (98-107); Creatinine Clr Calc Pharmacy 59.5004; Globulin 2.4 g/dL (1.3-4.6); Glucose 174 mg/dL (65-115); Osmolality Calculated 286 mOsm/kg (285-295); Potassium 4.3 mmol/L (3.5-5.1); Sodium 136 mmol/L (136-145); Total Bilirubin 0.7 mg/dL (0.15-1.2); Total Protein 6.2 g/dL (6.6-8.7)
[2024-01-28 13:58] LABS: Slide Review Slide Review Perform
== END 2024-02-14 23:59 | disposition home or self-care (01) ==
PROVIDERS: PCP Nurse Practitioner Family; Visit Provider Internal Medicine Hematology & Oncology
DX: Z17.1 Estrogen receptor negative status [ER-]; C50.412 Malignant neoplasm of upper-outer quadrant of left female breast; Z79.899 Other long term (current) drug therapy
CPT/HCPCS: 36415; 80053; 85025; 99214

== ENCOUNTER 2024-02-21 12:16 | Emergency (ER) | payer MEDICARE, MEDICAID, SELFPAY ==
[2024-02-21] VITALS (8 sets, daily range): BP systolic 117–149; BP diastolic 60–108; PULSE 101–109; RESP 14–25; TEMP 35.7; O2SAT 90–99; BMI 30.9
--- NOTE | 2024-02-21 12:36 | XR_ITS ---
WS: [email or web address] XR hip LT 2-3V wo/w pel* [id number] REASON FOR EXAM: pain FINDINGS: Proximal femur intact without fracture. Acetabulum and superior and inferior pubic ramus intact without fracture. Mild to moderate osteoarthritis of the left hip. XR/XR hip LT 2-3V wo/w pel* [id number] IMPRESSION: No acute abnormality. Mild to moderate osteoarthritis of the left hip.
--- NOTE | 2024-02-21 12:36 | XR_ITS ---
WS: [email or web address] XR hip RT 2-3V wo/w pel* [id number] REASON FOR EXAM: pain FINDINGS: Total right hip arthroplasty. No fracture of the proximal right femur. [place] acetabulum and superior and inferior pubic rami are i ntact without fracture. XR/XR hip RT 2-3V wo/w pel* [id number] IMPRESSION: Total right hip arthroplasty without acute abnormality.
--- NOTE | 2024-02-21 12:37 | CTR_ITS ---
PROCEDURE INFORMATION: Exam: CT Head Without Contrast Exam date and time: 02/21/2024 1:22 PM Age: 74 years old Clinical indication: Injury or trauma; Injury date: 02/21/2024 TECHNIQUE: Imaging protocol: Computed tomography of the head without contrast. Radiation optimization: All CT scans at this facility use at least one of these dose optimization techniques: automated exposure control; mA and/or kV adjustment per patient size (includes targeted exams where dose is matched to clinical indication); or iterative reconstruction. COMPARISON: CT head wo con* [id number] 04/21/2019 1:21 PM RADIATION DOSE METRICS: Total DLP (mGy-cm): 1173.6 FINDINGS: Brain: Normal. No hemorrhage. Unremarkable white matter. No mass effect or acute infarct. Cerebral ventricles: No ventriculomegaly. No midline shift. Paranasal sinuses: Left maxillary sinusitis is noted. Mastoid air cells: See Auditory system finding. Auditory system: Fluid is noted throughout the right middle ear cavity as well as the right mastoid air cells. Bones: Unremarkable. No acute fracture. Soft tissues: Unremarkable. CT/CT head wo con* [id number] IMPRESSION: 1. No acute brain or skull abnormality noted 2. Right otitis media and mastoid disease 3. Left maxillary sinusitis
--- NOTE | 2024-02-21 12:41 | XR_ITS ---
WS: [email or web address] XR elbow LT min 3V* [id number] REASON FOR EXAM: trauma FINDINGS: No acute fracture. Joint spaces of the left elbow are intact and relatively well preserved. No soft tissue abnormality. XR/XR elbow LT min 3V* [id number] IMPRESSION: No acute abnormality.
--- NOTE | 2024-02-21 12:41 | XR_ITS ---
WS: [email or web address] XR hand LT min 3V* [id number] REASON FOR EXAM: trauma FINDINGS: No acute fracture. Mild osteoarthritis in the DIP joints and the joints of the thumb most notably the carpal metacarpal joint of the thumb. XR/XR hand LT min 3V* [id number] IMPRESSION: No acute abnormality. Mild to moderate osteoarthritis.
--- NOTE | 2024-02-21 12:41 | CTR_ITS ---
PROCEDURE INFORMATION: Exam: CT Cervical Spine Without Contrast Exam date and time: 02/21/2024 1:22 PM Age: 74 years old Clinical indication: Injury or trauma; Fall; Blunt trauma; Injury date: 02/21/2024 TECHNIQUE: Imaging protocol: Computed tomography of the cervical spine without contrast. Radiation optimization: All CT scans at this facility use at least one of these dose optimization techniques: automated exposure control; mA and/or kV adjustment per patient size (includes targeted exams where dose is matched to clinical indication); or iterative reconstruction. COMPARISON: MS bone scan whole body* [id number] 06/12/2022 9:39 AM RADIATION DOSE METRICS: Total DLP (mGy-cm): 188.7 FINDINGS: Bones: There has been surgical fusion at the C5-C7 level(s). Bony alignment is normal and the hardware is in good position. I see no evidence of hardware loosening.There is no acute fracture. Lungs: Lung apices are normal. Soft tissues: Unremarkable. CT/CT cervical spin wo con* [id number] IMPRESSION: No acute findings.
--- NOTE | 2024-02-21 12:41 | CTR_ITS ---
PROCEDURE INFORMATION: Exam: CT Maxillofacial Without Contrast Exam date and time: 02/21/2024 1:22 PM Age: 74 years old Clinical indication: Injury or trauma; Fall; Blunt trauma (contusions or hematomas); Nose; Injury date: 02/21/2024 TECHNIQUE: Imaging protocol: Computed tomography of the face without contrast. Radiation optimization: All CT scans at this facility use at least one of these dose optimization techniques: automated exposure control; mA and/or kV adjustment per patient size (includes targeted exams where dose is matched to clinical indication); or iterative reconstruction. COMPARISON: CT head wo con* [id number] 02/21/2024 1:22 PM RADIATION DOSE METRICS: Total DLP (mGy-cm): 565.7 FINDINGS: Paranasal sinuses: Mucosal thickening involves the left maxillary sinus. Orbital cavities: Orbits are normal. Globes are unremarkable. Bones: Bilateral nasal bone fractures are noted with mild right lateral displacement. There is extensive surrounding soft tissue swelling along with some soft tissue air. Soft tissues: See Bones finding. CT/CT facial bones wo con* [id number] IMPRESSION: 1. Acute mildly displaced nasal bone fractures 2. Left maxillary sinusitis, probably chronic
--- NOTE | 2024-02-21 12:42 | ECG_ITS ---
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 Measurements Intervals [place] Rate: 108 P: 79 ND: 145 QRS: 66 QRSD: 90 T: 80 QT: 312 QTc: 418 Interpretive Statements SINUS TACHYCARDIA NONSPECIFIC T-WAVE ABNORMALITY ABNORMAL RHYTHM ECG Compared to ECG 10/13/2021 12:44:25 T-wave abnormality now present Sinus rhythm no longer present Sinus arrhythmia no longer present Electronically Signed On 02-21-2024 21:18:28 CONTINUOUS IMPROVEMENT CONSULTANT by Homero Marshall M.D. [email or web address]
--- NOTE | 2024-02-21 12:43 | ED_ITS ---
HPI - Fall 2 General: Chief Complaint: Fall Stated Complaint: fall Time Seen by Provider: 02/21/24 12:32 History of Present Illness: 74-year-old female presents emergency ro om after a fall. She got up and was going to the restroom she stumbled and fell landed on her face she has dried blood around the nares and the bridge of the nose. Significant mount ecchymosis on the upper extremities skin tear at the left elbow. She denies loss conscious denies chest pain or abdominal pain Associated symptoms-after fall: Reports neck pain; Denies abdominal pain or chest pain Related Data Home Medications Medication Instructions Recorded Confirmed albuterol sulfate 90 mcg/actuation 2 puff inhalation QID PRN 04/27/19 02/21/24 aerosol inhaler (Ventolin HFA) Shortness Of Breath chlorpheniramine maleate 4 mg 4 mg PO BID PRN Allergic Symptoms 04/27/19 02/21/24 tablet (ChlorTabs) budesonide 160 mcg-glycopyr 9 2 inh inhalation BID 06/27/21 02/21/24 mcg-formot 4.8 mcg/actuation HFA inhaler (Breztri Aerosphere) fluticasone propionate 50 50 mcg intranasal BID 06/27/21 02/21/24 mcg/actuation nasal spray,suspension ropinirole 1 mg tablet 2 mg PO QPM 05/29/22 02/21/24 Previous Rx's Medication Instructions Recorded Walking Cane #1 ea 06/26/19 mupirocin 2 % topical ointment 1 applic topical BID #22 grams 02/21/24 Allergies Allergy/AdvReac Type Severity Reaction Status Date / Time adhesive tape Allergy Severe ALGY-Bliste Verified 02/21/24 12:30 r dexamethasone Allergy throat Verified 02/21/24 12:30 close Penicillins Allergy ALGY-Anaphy Verified 02/21/24 12:30 laxis Review of Systems 2 Const: Reports: fatigue; Denies: fever(s) or chills Card: Denies: chest pain Resp: Denies: dyspnea GI: Denies: abdominal pain : Denies: dysuria, urinary frequency or urinary urgency Musc: Reports: neck pain and joint pain; Denies: back pain Skin/Breast: Denies: rash PFSH ED 2 PFSH: Medical History Breast cancer, left Cervical vertebral fusion Condyloma acuminata s/p excision in 11/2017 Osteoporosis takes Aledronate 70 mg once weekly Depression COPD (chronic obstructive pulmonary disease) Surgical History History of cervical spinal surgery History of surgery on right wrist History of total right hip arthroplasty H/O shoulder surgery left shoulder surgery Family History Father Alcoholic cirrhosis of liver Cancer Liver cancer Mother CAD (coronary artery disease) Cerebral hemorrhage Denies family history of Diabetes Clotting disorder Dementia Hyperlipidemia Psychiatric illness Chronic kidney disease (CKD) Suicide Anesthesia complication Bleeding disorder Lung disease Hypertension Stroke Social History Smoking and tobacco/nicotine status: never used tobacco/nicotine Alcohol intake: never Substance/Drug Use: never Lives independently: Yes Household members: significant other Housing: House Current occupational status: retired and disabled Do you think of yourself as: Straight/Heterosexual Current gender identity: Female Physical Exam 2 Const: GENERAL APPEARANCE: cooperative ORIENTATION/CONSCIOUSNESS: Yes awake, Yes oriented to person, Yes oriented to place and Yes oriented to time HENMT: COMMON NORMALS: normocephalic and hearing grossly normal bilaterally HEAD & SCALP: normocephalic OTHER: Dried blood about the nares and the bridge of the nose some facial swelling 1 cm laceration across the bridge of the nose Resp: COMMON NORMALS: normal respiratory effort, No retractions, No use of accessory muscles and clear to auscultation bilaterally AUSCULTATION: clear to auscultation bilaterally Cardio: COMMON NORMALS: regular rate, regular rhythm and No murmurs present (Cardio) RATE: regular rate RHYTHM: regular rhythm GI: COMMON NORMALS: Soft to palpation and No hepatosplenomegaly present A USCULTATION: Yes normoactive bowel sounds PALPATION: Yes Soft to palpation, No Tenderness to palpation present (GI), No Guarding due to palpation present (GI) and Yes No hepatosplenomegaly present Extremity: COMMON NORMALS: normal to inspection, capillary refill normal, no clubbing, cyanosis or edema, no calf tenderness and no pedal edema OTHER: Significant amount of skin tears and ecchymosis bilaterally in the upper extremities no obvious deformities moves all 4 extremities spontaneously Neuro: SENSORIUM/ORIENTATION: Yes oriented to person, Yes oriented to place and Yes oriented to time OTHER: No focal neurologic deficits Skin: COMMON NORMALS: no rashes or lesions noted GENERAL SKIN EXAM: no rashes or lesions noted Procedures Laceration Laceration 1: Site: face Size (cm): 1 Description: linear Depth: simple, single layer Local Anesthetic: lidocaine 1% and with epi Amount of anesthesia used (mL): 2 Pre-repair: wound explored and irrigated extensively Skin layer closed with: nylon Size (cm): 5-0 Number of sutures: 2 Technique: running Course 2 Vital Signs: Vital signs: Vital Signs Temperature 96.3 F L 02/21/24 12:17 Pulse Rate 105 H 02/21/24 18:16 Respiratory Rate 14 02/21/24 17:30 Blood Pressure 149/103 02/21/24 18:16 Pulse Oximetry 92 02/21/24 18:16 Oxygen Delivery Me thod Nasal Cannula 02/21/24 12:17 Oxygen Flow Rate 2 02/21/24 12:17 MDM - Fall Medical Decision Making Patient does have a displaced nasal bone fracture that will need follow-up with ENT will refer her there is sutures were placed good cosmesis and hemostasis. Discharge home follow-up with ENT and primary care as above. Apply topical antibiotic ointment to the wounds. Medical Records I reviewed the patient's medical records. Lab Data I reviewed the patient's lab results. 02/21/24 15:09 02/21/24 15:09 Radiology Impressions Hip/Pelvis X-Ray 02/21/24 12:36 IMPRESSION: Total right hip arthroplasty without acute abnormality. Head CT 02/21/24 12:37 IMPRESSION: 1. No acute brain or skull abnormality noted 2. Right otitis media and mastoid disease 3. Left maxillary sinusitis Cervical Spine CT 02/21/24 12:41 IMPRESSION: No acute findings. Elbow X-Ray 02/21/24 12:41 IMPRESSION: No acute abnormality. Face CT 02/21/24 12:41 IMPRESSION: 1. Acute mildly displaced nasal bone fractures 2. Left maxillary sinusitis, probably chronic Hand X-Ray 02/21/24 12:41 IMPRESSION: No acute abnormality. Mild to moderate osteoarthritis. Laboratory Results WBC 7.76 10^3/uL (3.29-11.43) 02/21/24 15:09 RBC 4.11 10^6/uL (3.85-5.65) 02/21/24 15:09 Hgb 12.30 g/dL (11.27-16.99) 02/21/24 15:09 Hct 42.1 % (36-47) 02/21/24 15:09 MCV 102.4 fl (85-98) H 02/21/24 15:09 MCH 29.9 pg (27-33) 02/21/24 15:09 MCHC 29.2 g/dL (30-55) L 02/21/24 15:09 RDW 14.2 % (12.1-15.1) 02/21/24 15:09 Plt Count 167 10^3/cmm (157-399) 02/21/24 15:09 MPV 9.8 fL (7.4-10.4) 02/21/24 15:09 Neut % (Auto) 91.0 % 02/21/24 15:09 Lymph % (Auto) 4.0 % 02/21/24 15:09 Saline % (Auto) 3.1 % 02/21/24 15:09 Eos % (Auto) 0.0 % 02/21/24 15:09 Baso % (Auto) 0.4 % 02/21/24 15:09 Neut # (Auto) 7.06 10^3/uL (1.8-7.7) 02/21/24 15:09 Lymph # (Auto) 0.3 10^3/uL (0.8-4.8) L 02/21/24 15:09 Saline # (Auto) 0.2 10^3/uL (0.2-0.9) 02/21/24 15:09 Eos # (Auto) 0.0 10^3/uL (0.0-0.8) 02/21/24 15:09 Baso # (Auto) 0.0 10^3/uL (0.0-0.1) 02/21/24 15:09 Nucleated RBC % (auto) 0 % 02/21/24 15:09 Nucleated RBCs # 0.0 /100WBC 02/21/24 15:09 Sodium 142 mmol/L (136-145) 02/21/24 15:09 Potassium 3.7 mmol/L (3.5-5.1) 02/21/24 15:09 Chloride 92 mmol/L (98-107) L 02/21/24 15:09 Carbon Dioxide 37 mmol/L (22-29) H 02/21/24 15:09 Anion Gap 16.7 (5-19) 02/21/24 15:09 BUN 16 mg/dL (8-23) 02/21/24 15:09 Creatinine 0.5 mg/dL (0.5-0.9) 02/21/24 15:09 GFR Calculation Not Reportable 02/21/24 15:09 Glucose 128 mg/dL (65-115) H 02/21/24 15:09 Calculated Osmolality 297 mOsm/kg (285-295) H 02/21/24 15:09 Calcium 9.3 mg/dL (8.5-10.5) 02/21/24 15:09 Total Bilirubin 0.7 mg/dL (0.15-1.2) 02/21/24 15:09 AST 9 U/L (0-32) 02/21/24 15:09 ALT 6 U/L (0-33) 02/21/24 15:09 Alkaline Phosphatase 61 U/L (35-105) 02/21/24 15:09 Creatine Kinase 32 U/L (26-192) 02/21/24 15:09 Total Protein 6.2 g/dL (6.6-8.7) L 02/21/24 15:09 Albumin 3.7 g/dL (3.5-5.2) 02/21/24 15:09 Globulin 2.5 g/dL (1.3-4.6) 02/21/24 15:[address] [place] (Yellow) A 02/21/24 15:52 Urine Appearance Clear (CLEAR) 02/21/24 15:52 Urine pH 6.0 (5-7) 02/21/24 15:52 Ur Specific [place] 1.027 (1.005-1.030) 02/21/24 15:52 Urine Protein 1+ (Negative) A 02/21/24 15:52 Urine Glucose (UA) Negative (Normal) 02/21/24 15:52 Urine Ketones 2+ (Negative) H 02/21/24 15:52 Urine Blood 3+ (Negative) A 02/21/24 15:52 Urine Nitrate Positive (Negative) A 02/21/24 15:52 Urine Bilirubin 2+ (Negative) H 02/21/24 15:52 Urine Urobilinogen 1.0 mg/dL (Negative) 02/21/24 15:52 Ur Leukocyte Esterase Trace (Negative) A 02/21/24 15:52 Urine RBC 51-100 /hpf (0-2) H 02/21/24 15:52 Urine WBC 0-5 /hpf (0-5) 02/21/24 15:52 Ur Squamous Epith Cells 0-5 /hpf (0-5) 02/21/24 15:52 Amorphous Sediment Not Reportable 02/21/24 15:52 Urine Bacteria None seen /hpf (NONE) 02/21/24 15:52 Hyaline Casts 1.21 /lpf 02/21/24 15:52 All radiology interpretation(s) finalized by discharge Discharge Plan Discharge Patient Disposition: Home Clinical Impression: Closed fracture nasal bone, Facial laceration, Fall Condition: Stable Prescriptions: New mupirocin 2 % ointment 1 applic topical BID Qty: 22 0RF Rx Instructions: Apply to skin tears and lacerations twice a day. No Action (DME) Walking Cane Qty: 1 0RF Rx Instructions: As directed chlorpheniramine maleate [ChlorTabs] 4 mg Tablet 4 mg PO BID PRN (Reason: Allergic Symptoms) albuterol sulfate [Ventolin HFA] 90 mcg/actuation Hfa Aerosol Inhaler 2 puff INHALATION QID PRN (Reason: Shortness Of Breath) fluticasone propionate 50 mcg/actuation spray,suspension 50 mcg INTRANASAL BID Breztri Aerosphere 160-9-4.8 mcg/actuation HFA aerosol inhaler 2 inh INHALATION BID ropinirole 1 mg tablet 2 mg PO QPM Discharge Orders: Discharge ED (Routine); Ordered 02/21/24 Ordered By: Constantino Soares Referrals: Kamila Pineda FNP [Primary Care Provider] - Discharge Diet: Usual diet Discharge Activity: Increase activity as tolerated Patient Instructions: Opioid Safety, Pain Management Activity Restrictions/Additional Instructions: Thank you for choosing [facility] for your healthcare needs today. It is very important that you follow up as instructed or that you return to the Emergency Department should you have concerns or if your condition changes or worsens in any way. You are seen in the emergency room after a fall. You do have a nasal bone fracture you will need to see ear nose and throat doctor in follow-up. Case management make arrangements for this. Apply topical antibiotic ointment to the skin tears in the laceration on the nose. Laceration on the nose should have the sutures removed in 5 to 7 days with your primary care doctor Coding Level of Care Code ED Slubber Runner for Dolly Andrew
[2024-02-21 15:25] LABS: Basophils % 0.4 %; Hematocrit 42.1 % (36-47); Lymphocytes # 0.3 10^3/uL (0.8-4.8); Mean Corpuscular HGB Conc 29.2 g/dL (30-55); Mean Corpuscular Hemoglobin 29.9 pg (27-33); Mean Corpuscular Volume 102.4 fl (85-98); Mean Platelet Volume 9.8 fL (7.4-10.4); Monocytes # 0.2 10^3/uL (0.2-0.9); Monocytes % 3.1 %; Neutrophils # 7.06 10^3/uL (1.8-7.7); Nucleated Red Blood Cells % 0 %; Platelet Count 167 10^3/cmm (157-399); Red Blood Count 4.11 10^6/uL (3.85-5.65); Red Cell Distribution Width 14.2 % (12.1-15.1); White Blood Count 7.76 10^3/uL (3.29-11.43)
[2024-02-21 15:52] LABS: Alanine Aminotransferase 6 U/L (0-33); Albumin Level 3.7 g/dL (3.5-5.2); Alkaline Phosphatase 61 U/L (35-105); Aspartate Amino Transferase 9 U/L (0-32); Blood Urea Nitrogen 16 mg/dL (8-23); Calcium 9.3 mg/dL (8.5-10.5); Carbon Dioxide 37 mmol/L (22-29); Chloride 92 mmol/L (98-107); Creatine Phosphokinase 32 U/L (26-192); Creatinine Clr Calc Pharmacy 61.8411; Globulin 2.5 g/dL (1.3-4.6); Glucose 128 mg/dL (65-115); Osmolality Calculated 297 mOsm/kg (285-295); Sodium 142 mmol/L (136-145); Total Bilirubin 0.7 mg/dL (0.15-1.2); Total Protein 6.2 g/dL (6.6-8.7)
[2024-02-21 16:08] LABS: Anion Gap 16.7 (5-19); Potassium 3.7 mmol/L (3.5-5.1)
[2024-02-21] MEDS: lidocaine-epi 1% 20 mL INJ INJECTION (17:26)
[2024-02-21 17:36] LABS: Bilirubin Urine 2+ (Negative); Blood Urine 3+ (Negative); Glucose Urine UA Negative (Normal); Ketones Urine 2+ (Negative); Leukocyte Esterase Urine Trace (Negative); Nitrate Urine Positive (Negative); Protein Urine 1+ (Negative); Specific Gravity, Urine 1.027 (1.005-1.030); Urine Appearance Clear (CLEAR)
[2024-02-21 17:41] LABS: Add Urine Microscopic? YES; Bacteria Urine None Seen /hpf; Hyaline Casts Urine 1.21 /lpf; RBC Urine 51-100 /hpf (0-2); Squamous Epithelial Cell Urine 0-5 /hpf (0-5); WBC Urine 0-5 /hpf (0-5)
[2024-02-21 17:54] LABS: Urine Color Orange (Yellow)
[2024-02-21 17:55] LABS: Add Urine Culture? Yes
[2024-02-21] MEDS: tetanus-dipt-pertussis 0.5 mL SDV IM (18:12)
--- NOTE | 2024-02-27 08:05 | DCPLANNER ---
Referral to [facility] ENT-
== END 2024-02-21 18:26 | disposition home or self-care (01) ==
PROVIDERS: Emergency Provider Family Medicine; PCP Nurse Practitioner Family
DX: S02.2XXA Fracture of nasal bones, initial encounter for closed fracture (principal); S01.81XA Laceration without foreign body of other part of head, initial encounter; W19.XXXA Unspecified fall, initial encounter; C50.912 Malignant neoplasm of unspecified site of left female breast; J44.9 Chronic obstructive pulmonary disease, unspecified
CPT/HCPCS: 12011; 36415; 70450; 70486; 72125; 73080; 73130; 73502; 80053; 81001; 82550; 85025; 87077; 87086; 87186; 90471; 90715; 93005; 99285

== ENCOUNTER 2024-03-17 10:40 | Emergency (ER) | payer MEDICARE, MEDICAID, SELFPAY ==
--- NOTE | 2024-03-17 10:43 | XR_ITS ---
WS: [id number] XR chest 1V portable [id number] REASON FOR EXAM: dyspnea/cough FINDINGS: Except for the previous presence of a right chest port with right internal jugular infusion catheter the chest appears unchanged compared to 10/18/2021. There are coarse reticular interstitial lung opacities in both lower lung barraza which are noted on t he previous examination as well and presumed to be chronic. There is calcified granulomatous disease bilaterally. The heart and the mediastinum are within normal limits. Left mastectomy. XR/XR chest 1V portable [id number] IMPRESSION: Chronic lung changes with no definite acute abnormality.
[2024-03-17 10:49] VITALS: BP 121/70; PULSE 96; RESP 16; TEMP 36.4; O2SAT 94; BMI 22.3
[2024-03-17 11:24] VITALS: BP 138/58; PULSE 85; O2SAT 94
--- NOTE | 2024-03-17 11:34 | ED_ITS ---
HPI - SOB/Dyspnea General: Chief Complaint: Shortness of Breath/Dyspnea Stated Complaint: SOB. hospice patient Time Seen by Provider: 03/17/24 10:43 Source: family and EMS Mode of arrival: EMS Limitations: no limitations History of Present Illness: HPI Narrative: 74-year-old female with a history of [employer] family states that their home health nurse had called EMS this morning due to her being increasingly short of breath family states she is on hospice though and is unsure why they actually called family states they do not want anything done she is actually on her baseline oxygen here and sat 95%. Patient is altered at baseline social history not available from her Related Data Home Medications Medication Instructions Recorded Confirmed albuterol sulfate 90 mcg/actuation 2 puff inhalation QID PRN 04/27/19 03/17/24 aerosol inhaler (Ventolin HFA) Shortness Of Breath budesonide 160 mcg-glycopyr 9 2 inh inhalation BID 06/27/21 03/17/24 mcg-formot 4.8 mcg/actuation HFA inhaler (Breztri Aerosphere) fluticasone propionate 50 50 mcg intranasal BID 06/27/21 03/17/24 mcg/actuation nasal spray,suspension ropinirole 1 mg tablet 2 mg PO QPM 05/29/22 03/17/24 budesonide 0.5 mg/2 mL suspension 2 mg inhalation Q6H 03/17/24 03/17/24 for nebulization cephalexin 500 mg capsule 500 mg PO TID 03/17/24 03/17/24 ipratropium 0.5 mg-albuterol 3 mg 3 ml inhalation Q6H 03/17/24 03/17/24 (2.5 mg base)/3 mL nebulization soln Previous Rx's Medication Instructions Recorded Walking Cane #1 ea 06/26/19 mupirocin 2 % topical ointment 1 applic topical BID #22 grams 02/21/24 Allergies Allergy/AdvReac Type Severity Reaction Status Date / Time adhesive tape Allergy Severe ALGY-Bliste Verified 02/21/24 12:30 r dexamethasone Allergy throat Verified 02/21/24 12:30 close Penicillins Allergy ALGY-Anaphy Verified 02/21/24 12:30 laxis Review of Systems General: Reports: ROS unobtainable due to mental status PFSH ED PFSH: Medical History Breast cancer, left Cervical vertebral fusion Condyloma acuminata s/p excision in 11/2017 Osteoporosis takes Aledronate 70 mg once weekly Depression COPD (chronic obstructive pulmonary disease) Surgical History History of cervical spinal surgery History of surgery on right wrist History of total right hip arthroplasty H/O shoulder surgery left shoulder surgery Family History Father Alcoholic cirrhosis of liver Cancer Liver cancer Mother CAD (coronary artery disease) Cerebral hemorrhage Denies family history of Diabetes Clotting disorder Dementia Hyperlipidemia Psychiatric illness Chronic kidney disease (CKD) Suicide Anesthesia complication Bleeding disorder Lung disease Hypertension Stroke Social History Smoking and tobacco/nicotine status: never used tobacco/nicotine Alcohol intake: never Substance/Drug Use: never Lives independently: Yes Household members: significant other Housing: House Current occupational status: retired and disabled Do you think of yourself as: Straight/Heterosexual Current gender identity: Female Physical Exam Const: COMMON NORMALS: no acute distress and healthy appearing; negative for patient oriented x3 HENMT: COMMON NORMALS: normocephalic and atraumatic HEAD & SCALP: normocephalic and atraumatic Eye: COMMON NORMALS: Equal, round and reactive pupils present and EOMs intact bilaterally PUPIL: Yes Equal, round and reactive pupils present Neck/C-Spine: COMMON NORMALS: full ROM and supple Chest: COMMONS NORMALS: normal inspection of the chest and normal palpation of entire chest wall Resp: COMMON NORMALS: normal respiratory effort, No retractions, No use of accessory muscles and clear to auscultation bilaterally AUSCULTATION: clear to auscultation bilaterally Cardio: COMMON NORMALS: regular rate, regular rhythm and No murmurs present (Cardio) RATE: regular rate RHYTHM: regular rhythm GI: COMMON NORMALS: Normal to inspection, nondistended, normoactive bowel sounds present, Soft to palpation, non-tender and no masses PALPATION: Yes Soft to palpation Extremity: COMMON NORMALS: normal to inspection and full ROM Neuro: COMMON NORMALS: moves all extremities and no focal motor deficits; negative for patient oriented x3 Psych: COMMON NORMALS: mental status grossly normal, Normal thought process present and cooperative THOUGHT PROCESS: Normal thought process present Skin: COMMON NORMALS: no rashes or lesions noted and no wounds GENERAL SKIN EXAM: no rashes or lesions noted Course Vital Signs: Vital signs: Vital Signs Temperature 97.6 F 03/17/24 10:49 Pulse Rate 85 03/17/24 11:24 Respiratory Rate 16 03/17/24 10:49 Blood Pressure 138/58 03/17/24 11:24 Pulse Oximetry 94 03/17/24 11:24 Oxygen Delivery Me thod Nasal Cannula 03/17/24 11:24 Oxygen Flow Rate 5 03/17/24 11:24 MDM - SOB/Dyspnea Medical Decision Making Patient presents with dyspnea she is on hospice of spoke to family they do not want anything else done we will discharge her back home. Medical Records I reviewed the patient's medical records. Lab Data Labs/Radiology: Radiology Impressions Chest X-Ray 03/17/24 10:43 IMPRESSION: Chronic lung changes with no definite acute abnormality. All radiology interpretation(s) finalized by discharge Discharge Plan Discharge Patient Disposition: Home Clinical Impression: Acute exacerbation of chronic obstructive airways disease Condition: Stable Prescriptions: No Action (DME) Walking Cane Qty: 1 0RF Rx Instructions: As directed albuterol sulfate [Ventolin HFA] 90 mcg/actuation Hfa Aerosol Inhaler 2 puff INHALATION QID PRN (Reason: Shortness Of Breath) fluticasone propionate 50 mcg/actuation spray,suspension 50 mcg INTRANASAL BID Breztri Aerosphere 160-9-4.8 mcg/actuation HFA aerosol inhaler 2 inh INHALATION BID ropinirole 1 mg tablet 2 mg PO QPM mupirocin 2 % ointment 1 applic topical BID Qty: 22 0RF Rx Instructions: Apply to skin tears and lacerations twice a day. ipratropium-albuterol 0.5 mg-3 mg(2.5 mg base)/3 mL solution for nebulization 3 ml INHALATION Q6H cephalexin 500 mg capsule 500 mg PO TID budesonide 0.5 mg/2 mL suspension for nebulization 2 mg inhalation Q6H Discharge Orders: Discharge ED (Routine); Ordered 03/17/24 Ordered By: Cierra Solis Referrals: White,Kamila, DIRECTOR OPERATIONS BROADCAST [Primary Care Provider] - Patient Instructions: Chronic Bronchitis (ED) Coding Level of Care Code ED Neurodiagnostic Tech for Dolly Andrew
[2024-03-17 12:00] VITALS: BP 114/63; PULSE 89; O2SAT 90
--- NOTE | 2024-03-17 12:45 | PC.NURSE ---
Pt's family bedside reports that pt is bed bound, unable to ambulate, pt is usually on 5 to 6 L NC per baseline. Pt family also reports increased weakness, is on hospice.
--- NOTE | 2024-03-17 14:52 | PC.NURSE ---
spoke with family, family leaving and to call son when ems arrive to transfer pt back home.
[2024-03-17 16:49] VITALS: BP 166/81; PULSE 103; RESP 16; O2SAT 94
--- NOTE | 2024-03-17 17:07 | PC.NURSE ---
this nurse checked pt, pt was wet and had soft bm, pt was changed into dry brief. Pt repositioned onto right side, pt feet floated, pt given chocolate pudding.
[2024-03-17 17:39] VITALS: BP 166/81; PULSE 103; O2SAT 91
== END 2024-03-17 17:41 | disposition home or self-care (01) ==
PROVIDERS: Emergency Provider Emergency Medicine; PCP Nurse Practitioner Family
DX: J44.1 Chronic obstructive pulmonary disease with (acute) exacerbation (principal); C50.912 Malignant neoplasm of unspecified site of left female breast
CPT/HCPCS: 71045; 99283